=== PATIENT | female | born 1965 | race Caucasian/White ===

== ENCOUNTER 2020-04-12 08:34 | Outpatient (CLI) | payer OTHER, SELFPAY ==
--- NOTE | ~2020-04-12 | CT_ITS ---
EXAMINATION: CT abdomen w con EXAM DATE: 04/12/2020 09:51 INDICATION: Right-sided abdominal pain. Blood in stool. TECHNIQUE: Spiral CT of the abdomen was performed following intravenous injection of 100 mL Omnipaque 350. Axial, coronal and sagittal images were reviewed. The dose-length product (DLP) for this exam ination was 108.75 mGy-cm. The exposure was tailored according to patient size (auto mA exposure con trol), and iterative reconstruction (ASIR) was used as additional dose reduction technique. Compariso n is made to prior examination from 03/11/2019. FINDINGS: Scattered small liver cysts less than 1 cm in size. Spleen, adrenal glands, pancreas are un remarkable. Gallbladder is unremarkable. No biliary obstruction. Portal and splenic veins are arce nt. Kidneys enhance symmetrically. There is no hydronephrosis. There is no retroperitoneal lymph adenopathy. Small supraumbilical fat-containing hernia. The stomach and small bowel are unremarkable. There is moderate amount of colonic stool. No free i ntraperitoneal gas. The heart is normal in size. There are no pericardial or pleural effusions. T he lung bases are unremarkable. There are no osteoblastic or osteolytic lesions identified. Mild to moderate thoracolumbar levoscoliosis. IMPRESSION: 1. Moderate amount of colonic stool. 2. Small supraumbilical fat-containing hernia. 3. No acute abdominal findings. Reviewed, dictated and finalized at location B.
== END 2020-04-12 08:35 | disposition home or self-care (01) ==
PROVIDERS: PCP Family Medicine; Visit Provider Nurse Practitioner
DX: R10.9 Unspecified abdominal pain (principal); K42.9 Umbilical hernia without obstruction or gangrene; E55.9 Vitamin D deficiency, unspecified
CPT/HCPCS: 36415; 74160; 82306; Q9967

== ENCOUNTER 2020-04-24 08:04 | Emergency (ER) | payer OTHER, SELFPAY ==
[2020-04-24 08:14] VITALS: BP 115/70; PULSE 70; RESP 14; TEMP 36.9; O2SAT 100
--- NOTE | 2020-04-24 08:23 | ED.SKABFB ---
HPI - Skin/Abscess/Foreign Bdy General Chief complaint: Skin/Abscess/Foreign Body Stated complaint: Shingles Time Seen by Provider: 04/24/20 08:23 Source: patient Mode of arrival: ambulatory Limitations: no limitations History of Present Illness HPI narrative: Popeye Steiner is a 54 yo female with no PMH who comes to express care with what appears to be a shingles rash on her right lower back. Started with pain 2 days ago and now rash appeared. Pain described as going to the bone Related Data Home Medications Medication Instructions Recorded Confirmed sertraline mg 04/24/20 Allergies Allergy/AdvReac Type Severity Reaction Status Date / Time No Known Allergies Allergy Unverified 02/02/13 13:05 Review of Systems Review of Systems: Narrative: CONSTITUTIONAL: Denies fever, chills, sweats. EYES: Denies visual changes, redness, discharge. ENT: Denies rhinorrhea, congestion, sore throat, otalgia. CARDIOVASCULAR: Denies chest pain, palpitations, edema. RESPIRATORY: Denies dyspnea, wheezing, cough GASTROINTESTINAL: Denies abdominal pain, nausea, vomiting, diarrhea. GENITOURINARY: Denies dysuria, hematuria, abnormal discharge SKIN: Denies rash or itching. rash on lower R back NEUROLOGIC: Denies numbness, or focal weakness. PSYCHIATRIC: Denies anxiety or depression. PMFSH Family History Family History Other Hypertension Social History Social History (Updated 04/24/20 @ 08:43 by Evie Sharma CNP) Smoking status: Current every day smoker Alcohol intake: current Comments At time of signature, I agree with nursing past medical, surgical, social and family history. There is no relevant family history pertinent to the presenting complaint. Exam Narrative: Exam Narrative: GENERAL: This is a well-nourished, well-developed patient, in mild distress. HEAD: normocephalic, atraumatic. EYES: Sclera clear/white. Vision is grossly intact. EARS: External ears normal. Hearing grossly intact. NOSE: External nose normal without nasal discharge, nares without redness, no rhinorrhea. THROAT: Mucous membranes moist, NECK: Neck supple, CARDIOVASCULAR: Regular rate and rhythm without murmurs, gallops, or rubs. RESPIRATORY: Clear to auscultation. Breath sounds equal bilaterally. No wheezes, rales, or rhonchi. GASTROINTESTINAL: Abdomen soft, SKIN: warm, intact with red, raised vesicular rash 3x3 lower R back NEURO: awake, alert, and oriented to person, place and time. There were no obvious focal neurologic abnormalities. Steady gait EXTREMITIES: Normal range of motion. BACK: Nontender without deformity Course Course Emergency Course: Started on valcyclovir discussed infection control, good handwashing Patient is to talk to PCP about getting Shingrix shingles vaccine once rash clears Vital Signs Vital signs: Vital Signs Temperature 98.4 F 04/24/20 08:14 Pulse Rate 70 04/24/20 08:14 Respiratory Rate 14 04/24/20 08:14 Blood Pressure 115/70 04/24/20 08:14 Pulse Oximetry 100 04/24/20 08:14 Temperature 98.4 F 04/24/20 08:14 Pulse Rate 70 04/24/20 08:14 Respiratory Rate 14 04/24/20 08:14 Blood Pressure 115/70 04/24/20 08:14 Pulse Oximetry 100 04/24/20 08:14 MDM - Skin/Abscess/Foreign Bdy Differential Diagnosis Differential diagnosis: Likely abscess of skin or subcutaneous tissue, viral exanthem, urticaria, eczema and other Discharge Plan Discharge Clinical Impression: Shingles rash Qualifiers: Herpes zoster complications: without complications Qualified Code(s): B02.9 - Zoster without complications Patient Disposition: Home, Self-Care Condition: Stable Instructions: Shingles (ED) Prescriptions: New valacyclovir 500 mg tablet 1,000 mg PO TID 7 Days Qty: 42 RF: 0 hydrocodone-acetaminophen [Mathis] 7.5-325 mg tablet 1 tablet PO Q8H PRN (Reason: pain) Qty: 10 RF: 0 No Action sertral
== END 2020-04-24 09:20 | disposition home or self-care (01) ==
PROVIDERS: Emergency Provider Nurse Practitioner; PCP Family Medicine
DX: B02.9 Zoster without complications (principal)
CPT/HCPCS: 99213; G0463

== ENCOUNTER 2021-03-07 11:11 | Outpatient (CLI) | payer OTHER, SELFPAY ==
[2021-03-07 12:05] LABS: Alanine Aminotransferase 13 U/L (4-35); Albumin Level 4.4 g/dL (3.5-5.1); Alkaline Phosphatase 69 U/L (38-126); Anion Gap 7 mmol/L (8-16); Aspartate Amino Transferase 21 U/L (14-36); Bilirubin,Total 0.4 mg/dL (0.2-1.3); Blood Urea Nitrogen 6 mg/dL (7-17); Calcium 9.8 mg/dL (8.4-10.2); Carbon Dioxide 30 mmol/L (22-30); Chloride 101 mmol/L (98-107); Cholesterol 211 mg/dL (0-200); Estimated Glomerular Filt Rate > 60; Glucose 96 mg/dL (65-105); HDL Direct 59 mg/dL; Potassium 3.5 mmol/L (3.4-5.0); Sodium 138 mmol/L (137-145); Triglycerides 94 mg/dL (<150)
[2021-03-07 12:16] LABS: LDL Cholesterol Direct 117 mg/dL
[2021-03-07 12:24] LABS: Basophils Percent Auto 0.8 % (0.2-1.2); Eosinophils Absolute Auto 0.1 K/mm3 (0-0.3); Eosinophils Percent Auto 2.1 % (0-4.4); Hematocrit 37.7 % (37.0-47.0); Hemoglobin 12.4 g/dL (12.0-15.0); Immature Granulocyte Absolute 0.01 K/mm3 (0.00-0.031); Immature Granulocyte Percent A 0.2 % (0-0.5); Lymphocytes Absolute Auto 1.39 K/mm3 (0.9-3.2); Lymphocytes Percent Auto 28.7 % (18.3-44.2); Mean Corpuscular HGB Conc 32.9 g/dl (32-36); Mean Corpuscular Volume 88.1 fl (80-100); Mean Platelet Volume 9.2 fl (7.4-10.4); Monocytes Absolute Auto 0.3 K/mm3 (0.1-0.6); Neutrophils Percent Auto 61.2 % (45.5-73.1); Platelet Count Result 346 k/mm3 (150-375); Red Blood Count 4.28 M/mm3 (4.2-5.4); Red Cell Distribution Width 12.6 % (11.5-14.5); White Blood Count 4.8 K/mm3 (4.5-10.0)
== END 2021-03-07 11:12 | disposition home or self-care (01) ==
LOC: ANHLAB 11:15
PROVIDERS: PCP Student in an Organized Health Care Education/Training Program; Visit Provider Student in an Organized Health Care Education/Training Program
DX: Z13.228 Encounter for screening for other metabolic disorders (principal); Z13.0 Encounter for screening for diseases of the blood and blood-forming organs and certain disorders involving the immune mechanism; Z00.00 Encounter for general adult medical examination without abnormal findings
CPT/HCPCS: 36415; 80053; 80061; 84443; 85025

== ENCOUNTER 2023-02-04 09:55 | Emergency (ER) | payer OTHER, SELFPAY ==
[2023-02-04 10:05] VITALS: BP 119/68; PULSE 75; RESP 16; TEMP 36.1; O2SAT 100
--- NOTE | 2023-02-04 10:22 | ED.URI ---
HPI - URI/Sore Throat General Chief Complaint: Upper Respiratory Infection Stated Complaint: sob,cough,bodyache Source: patient Mode of arrival: ambulatory Limitations: no limitations History of Present Illness HPI Narrative: 57-year-old female presents to [facility] with complaints of cough, shortness of breath, body aches, wheezing, runny nose and congestion for the past 5 days. Patient has been taking [id number] Mucinex D and Tylenol with minimal relief. Patient's grandson recently had similar symptoms. Patient reports history of pneumonia and bronchitis but declines a chest x-ray at this time. Patient denies fever, body aches, chills, sore throat or ear pain. MD elicited complaint: cough, rhinorrhea and nasal congestion Pertinent past history: pneumonia Onset (ago): day(s) (5) Severity: mild Able to tolerate fluids by mouth: Yes Exacerbating factors: nothing Context: sick contacts (Grandson) Treatments prior to arrival: cold medicine Related Data Home Medications Medication Instructions Recorded Confirmed sertraline 50 mg tablet 50 mg DAILY 02/04/23 02/04/23 Allergies Allergy/AdvReac Type Severity Reaction Status Date / Time No Known Allergies Allergy Unverified 02/02/13 13:05 Review of Systems Constitutional: Constitutional: Reports chills, Reports fatigue, Denies fever(s) and Denies weakness ENT: Denies vertigo, Denies dizziness, Denies epistaxis, Reports nasal congestion and Denies sore throat Cardiovascular: Cardiovascular: Denies chest pain Respiratory: Respiratory: Reports cough, Denies dyspnea and Denies wheezing Gastrointestinal: Gastrointestinal: Denies diarrhea, Denies nausea and Denies vomiting Integumentary/Breasts: Skin/Breast: Denies rash Neurologic: Denies dizziness, Denies syncope and Denies headache(s) PMFSH Family History Family History Other Hypertension Social History Social History Smoking status: Current every day smoker Alcohol intake: current Comments At time of signature, I agree with nursing past medical, surgical, social and family history. There is no relevant family history pertinent to the presenting complaint. Exam Const: General: healthy appearing and no acute distress Nutritional Appearance: well nourished Orientation/consciousness: patient oriented x3 Limitations: no limitations HENMT: Head: normal to inspection Ears: external ears normal, TM's normal bilaterally and EAC's normal Face/Nose/Sinus: Normal external nose present Face and sinus: normal facial exam and sinuses nontender Mouth: Yes Normal oral and palatal mucosa present Teeth and gingiva: dentition normal Throat: posterior oropharynx normal and uvula midline Other: Mild nasal congestion noted Eyes: Conjunctivae: conjunctivae normal Neck: Neck: normal visual inspection Resp: Effort & Inspection: normal respiratory effort Auscultation: clear to auscultation bilaterally, no crackles, no rales, no rhonchi, no wheezes, breath sounds present and lung sounds not diminished Cardio: Rate: regular rate Rhythm: regular rhythm Heart sounds: no murmurs Skin: General skin exam: normal color Rashes: no rashes Wounds: no wounds Neuro: General: patient oriented x3 Speech: normal speech Psych: Affect: normal affect Attitude: cooperative Course Course Level of Care: Express Care Visit Vital Signs Vital signs: Vital Signs Temperature 36.1 C L 02/04/23 10:05 Pulse Rate 75 02/04/23 10:05 Respiratory Rate 16 02/04/23 10:05 Blood Pressure 119/68 02/04/23 10:05 Pulse Oximetry 100 02/04/23 10:05 Oxygen Delivery Room Air 02/04/23 10:05 Temperature 36.1 C L 02/04/23 10:05 Pulse Rate 75 02/04/23 10:05 Respiratory Rate 16 02/04/23 10:05 Blood Pressure 119/68 02/04/23 10:05 Pulse Oximetry 100 02/04/23 10:05 Oxygen Delivery Room Air
== END 2023-02-04 10:31 | disposition home or self-care (01) ==
PROVIDERS: Emergency Provider Nurse Practitioner Family; PCP Student in an Organized Health Care Education/Training Program
DX: J06.9 Acute upper respiratory infection, unspecified (principal); F17.200 Nicotine dependence, unspecified, uncomplicated
CPT/HCPCS: 99213; G0463

== ENCOUNTER 2024-01-28 11:10 | Emergency (ER) | payer OTHER, SELFPAY ==
--- NOTE | 2024-01-28 11:21 | ED.FEMALEGU ---
HPI - Female Genitourinary General Chief complaint: Urogenital-Female Stated complaint: UTI symptoms Time Seen by Provider: 01/28/24 11:29 Source: patient, RN notes reviewed and old records reviewed Mode of arrival: ambulatory Limitations: no limitations History of Present Illness HPI Narrative: 58-year-old presents to the [facility] with concerns for a UTI. Patient reports burning, urgency, frequency and suprapubic pressure since yesterday. No treatment prior to. Denies any nausea vomiting diarrhea. Denies any significant abdominal pain. No CVA tenderness. No back pain Onset (ago): day(s) (1) Related Data Home Medications Medication Instructions Recorded Confirmed zolpidem 10 mg tablet 10 mg PO PRN PRN Insomnia 01/28/24 01/28/24 Allergies Allergy/AdvReac Type Severity Reaction Status Date / Time nitrofurantoin AdvReac Intermediate Nausea and Verified 01/28/24 11:29 [From Macrobid] Vomiting Review of Systems Review of Systems: All systems reviewed & are unremarkable except as noted in HPI and below Constitutional: Constitutional: Reports no additional constitutional complaints Eyes: Eyes: Reports no additional eye complaints ENT: Reports system reviewed and no additional complaints, except as documented Cardiovascular: Cardiovascular: Reports no additional cardiovascular complaints, Denies chest pain and Denies dyspnea Respiratory: Respiratory: Reports no additional respiratory complaints, Denies chest congestion, Denies cough and Denies dyspnea Gastrointestinal: Gastrointestinal: Reports no additional gastrointestinal complaints, Denies abdominal pain, Denies nausea and Denies vomiting Genitourinary: Genitourinary: Reports as per HPI and Reports dysuria Musculoskeletal: Musculoskeletal: Reports no additional musculoskeletal complaints Integumentary/Breasts: Skin/Breast: Reports system reviewed and no additional complaints, except as docu Neurologic: Reports system reviewed and no additional complaints, except as documented Psychiatric: Psychiatric: Reports no additional psychiatric complaints Allergic/Immunologic: Allergic/Immunologic: Reports no additional allergic/immunologic complaints [facility] Past Medical History Medical History (Updated 01/28/24 @ 12:17 by Jasmin Navarro APRN) Rectal mass Surgical removal Surgical History Surgical History (Updated 01/28/24 @ 12:15 by Jasmin Navarro APRN) History of bunionectomy Family History Family History Other Hypertension Social History Social History Smoking status: Current every day smoker Alcohol intake: current Comments At the time of my signature, I reviewed and agree with the nursing past medical, surgical, social, and family history. There is no relevant family history pertinent to the patient complaint. Exam Const: General: cooperative, healthy appearing, comfortable, no acute distress, well developed, alert and well nourished Nutritional Appearance: well nourished Orientation/consciousness: patient oriented x3 Limitations: no limitations HENMT: Head: normal to inspection Ears: hearing grossly normal bilaterally and external ears normal Face/Nose/Sinus: Normal external nose present, Normal nares present, Normal nasal mucous membranes and turbinates present, normal facial exam and face symmetric Face and sinus: normal facial exam and face symmetric Eyes: General: appearance normal, both eyes and all related structures Alignment and Position: alignment normal Periorbital: periorbital findings normal Pupils: Equal, round and reactive pupils present EOM: EOMs intact bilaterally Neck: Neck: normal visual inspection, full ROM, no lymphadenopathy and no meningeal signs Chest: Chest palpation & inspection: normal inspection of the chest Resp: Effort & Inspection: normal respiratory effort and able to speak in c
[2024-01-28 11:24] VITALS: BP 118/75; PULSE 77; RESP 16; TEMP 36.6; O2SAT 100
== END 2024-01-28 11:38 | disposition home or self-care (01) ==
PROVIDERS: Emergency Provider Nurse Practitioner; PCP Student in an Organized Health Care Education/Training Program
DX: N39.0 Urinary tract infection, site not specified (principal); F17.200 Nicotine dependence, unspecified, uncomplicated
CPT/HCPCS: 81003; 87086; 99213; G0463

== ENCOUNTER 2024-06-18 08:46 | Emergency (ER) | payer OTHER, SELFPAY ==
--- NOTE | ~2024-06-18 | XR_ITS ---
Clinical Indication: Shortness of breath PA and lateral views of the chest: Comparison: 02/04/2013 Findings: The lungs are clear, without evidence of focal consolidation or pleural effusion. COPD kyle kalyani present. Cardiomediastinal silhouette is within normal limits. Bones and soft tissues are unremar kable. Impression: Clear lungs. COPD. Reviewed, dictated and finalized at location . Impression: Clear lungs. COPD.
[2024-06-18 09:17] VITALS: BP 122/71; PULSE 69; RESP 18; TEMP 36.8; O2SAT 98
--- NOTE | 2024-06-18 09:19 | ED.URI ---
HPI - URI/Sore Throat General Chief Complaint: Upper Respiratory Infection Stated Complaint: SOB/Cough/ Chest congestion Time Seen by Provider: 06/18/24 09:09 Source: patient Mode of arrival: ambulatory Limitations: no limitations History of Present Illness HPI Narrative: Popeye is a 58-year-old female patient presenting to the clinic today with complaints of shortness breath, cough, and chest congestion for over the past week. She reports she is coughing up green thick phlegm. Stated she had a fever with her initial illness however she has not had a fever for the last several days. Denies any chest pain. History of COPD. Former smoker MD elicited complaint: fever, cough, nasal congestion and other (Shortness of breath, chest congestion) Related Data Home Medications Medication Instructions Recorded Confirmed zolpidem 10 mg tablet 10 mg PO PRN PRN Insomnia 01/28/24 06/18/24 sertraline 50 mg tablet 50 mg DIRECTED 06/18/24 06/18/24 Allergies Allergy/AdvReac Type Severity Reaction Status Date / Time nitrofurantoin AdvReac Intermediate Nausea and Verified 01/28/24 11:29 [From Macrobid] Vomiting Review of Systems Review of Systems: Pertinent positives per HPI. Patient denies any fever, chills, rash, headache, visual changes, dizziness, chest pain, palpitations, nausea, vomiting, diarrhea, constipation, abdominal pain, or any urinary issues. PMFSH Past Medical History Medical History Rectal mass Surgical removal Surgical History Surgical History History of bunionectomy Family History Family History Other Hypertension Social History Social History Smoking status: Current every day smoker Alcohol intake: current Comments At the time of my signature, I reviewed and agree with the nursing past medical, surgical, social, and family history. There is no relevant family history pertinent to the patient complaint. Exam Narrative: General: Well-developed, well nourished, in no apparent distress Head: Normocephalic, atraumatic Eyes: Pupils equally round and reactive to light bilaterally, EOM intact, sclera and conjunctive clear, no discharge, lids normal Ears: TMs intact and clear, ear canals clear, no drainage, grossly hearing normal. Nose: Nares patent, clear nasal discharge, moderate inflammation, no sinus tenderness. Mouth: Oral pharynx without lesions or masses, good dentition, MMM. Neck: Supple, trachea midline, no enlargement of anterior or posterior cervical nodes, no thyroid masses or goiter palpable. Cardio: Regular rate and rhythm, s1 and s2 normal, no murmur appreciated. Resp: Diminished breath sounds in the bases, no rhonchi, rales, wheezing or rubs Course Course Emergency Course: Portions of this record may have been created with voice recognition software. Level of Care: Express Care Visit Vital Signs Vital signs: Vital Signs Temperature 36.8 C 06/18/24 09:17 Pulse Rate 69 06/18/24 09:17 Respiratory Rate 18 06/18/24 09:17 Blood Pressure 122/71 06/18/24 09:17 Pulse Oximetry 98 06/18/24 09:17 Oxygen Delivery Room Air 06/18/24 09:17 Temperature 36.8 C 06/18/24 09:17 Pulse Rate 69 06/18/24 09:17 Respiratory Rate 18 06/18/24 09:17 Blood Pressure 122/71 06/18/24 09:17 Pulse Oximetry 98 06/18/24 09:17 Oxygen Delivery Room Air 06/18/24 09:17 Vital signs reviewed MDM - URI/Sore Throat MDM Narrative Medical decision making narrative: At the time of visit patient is resting comfortably on the exam table. Patient appears to be nontoxic. Diagnostics: Chest x-ray was performed and was negative for any sign of pneumonia. Show signs of COPD Plan: I suspect patient has COPD exacerbation
== END 2024-06-18 10:19 | disposition home or self-care (01) ==
PROVIDERS: Emergency Provider Nurse Practitioner Family; PCP Student in an Organized Health Care Education/Training Program
DX: J44.1 Chronic obstructive pulmonary disease with (acute) exacerbation (principal); J01.90 Acute sinusitis, unspecified
CPT/HCPCS: 71046; 99213; G0463

== ENCOUNTER 2025-03-20 10:16 | Emergency (ER) | payer OTHER, SELFPAY ==
--- OUTSIDE RECORDS SUMMARY | 2025-03-20 10:19 | XMS_ITS | Continuity of Care Document ---
Author Name [facility] Organization [facility] Care Team Providers Care Data Abstractor Name Role Phone [facility] Unavailable Unavailable Problems Combined list of problems from Department of 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 It does not include entries that were removed or entered in error. 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 DoD depression Active Condition DoD routine history and physical adult (18 - 64 yrs) Active Condition DoD Laboratory Studies Inactive Condition Do D visit for: issue repeat prescription Inactive Condition DoD X-Ray Active Condition DoD bulging intervertebral disc cervical Active Condition DoD joint pain, localized in the knee Active Condition DoD visit for: services physical [facility] Active Condition DoD bronchitis Inactive Condition DoD subconjunctival hemorrhage left eye Active Condition DoD herniated disc (C5 - C6) Active Condition pt defers PT/chiro--will try trial of PO steroid burst; pt is to avoid NSAIDS w/ prednisone and may take tylenol for discomfortpt agrees w/ POC DoD diarrhea Inactive Condition 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 Supportive care. Quarters x 24 hrs. Fluids, ADAT, handwashing. f/u prn. DoD visit for: administrative purpose Active Condition DoD visit for: screening exam for malignant neoplasm cervix Active Condition Advised to g et breast exam and mammo in April. DoD presbyopia Inactive Condition DoD astigmatism regular Inactive Condition D oD refractive error - myopia Inactive Condition DoD routine ophthalmological exam Inactive Condition DoD Need For Vaccination Against Single Disease Inactive Condition DoD visit for: services physical Active Condition DoD urinary tract infection Inactive Condition DoD abdominal pain Active Condition DoD Preventive Medicine New Patient Evaluation Adult 40-64 Years Inactive Condition DoD visit for: postsurgical exam Inactive Condition s/p left inguinal hernia repair with mesh DoD visit for: issue repeat prescription for medication Inactive Condition DoD inguinal hernia on the left Active Condition DoD hernia Active Condition CT to eval hernia, follow up if pain worsens. DoD joint pain in the toes Active Condition no visible fx seen on x-ray. Toe aaron taped, darvocet as needed. Pt given post-op shoe to wear as needed, follow up if sx's worsen or don't resolve. DoD cervicalgia Active Condition DoD non-neoplastic nevus Active Condition the patient is to apply sunblock when going in the sun. Discussed the ABCD's of skin care with her and if she notes any changes in the moles she is to return to the clinic em. DoD gastritis acute Active Condition ..OF F DUTIES 24 HRS, >H2O,REST F/U ADVISED! DoD Medications Combined list of outpatient medications from Department of 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Medications provided include 1) outpatient medications from the last 15 months, and 2) patient-reported medications. Medication Details Route Status Patient Instructions Prescription Expires Prescription Number Last Dispense Date Ordering Provider Order Date Order Qty Source AMOX TR-POTASSIU M CLAVULANATE (AMOXICILLI N/POTASSIUM CLAV), 875-125 MG, TABLET, ORAL, SANDOZ, 20 ea. BOTTLE Active [id number] 2023 10 Pharmac y Data Transac tion Service Facilit y CEFDINIR (CEFDINIR), 300MG, CAPSULE, ORAL, AUROBINDO PHARM, 60 ea. BOTTLE Active [id number] 2023 20 Pharmac y Data Transac tion Service Facilit y GAVILYTE-G (PEG 3350/NA SULF,BICARB ,CL/KCL), 236-22.74G, SOLN RECON, ORAL, GAVIS PHARMACEU, 4000 ml BOTTLE Cancele d [id number] : 2023 0 Pharmac y Data Transac tion Service Facilit y SERTRALINE HCL (SERTRALINE HCL), 50MG, TABLET, ORAL, AUROBINDO PHARM, 500 ea. BOTTLE Cancele d [id number] : 2023 0 Pharmac y Data Transac tion Service Facilit y ZOLPIDEM TARTRATE (ZOLPIDEM TARTRATE), 10MG, TABLET, ORAL, AUROBINDO PHARM, 100 ea. BOTTLE Cancele d [id number] : 2023 0 Pharmac y Data Transac tion Service Facilit y Allergies, Adverse Reactions, Alerts Combined list of allergies from Department of 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 It does not include entries that were removed or entered in error. Substance Category Reaction Severity Reaction type Status Date Reported Comments Source OTHER Drug allergy (disorder) Unknown active 6 [employer] Zaid CEDILLO ([facility]) OTHER Propensity to adverse reactions to drug Unknown Active 6 [id number] Unknown Organization Immunizations Combined list of available immunizations from the Department of 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 Immunization Series Date Given Administered By Site Reaction Lot Number CVX Code Drug Coordinator Of Placement Status Comments Source COVID-19, mRNA, LNP-S, PF, 30 mcg/0.3 mL dose 2020 [employer] [place] (PFR) Not Given COVID-19, mRNA, LNP-S, PF, 30 mcg/0.3 mL dose [facility] COVID-19, mRNA, LNP-S, PF, 30 mcg/0.3 mL dose 2020 [facility] [place] (PFR) Not Given COVID-19, mRNA, LNP-S, PF, 30 mcg/0.3 mL dose [facility] influenza virus vaccine, live 2007 [id number] [employer] comple t ed influenza virus vaccine, live 07/20/08 Given Ambulat ory Pharmac y influenza virus vaccine, live, attenuated, for intranasal use 1 2007 [id number] 111 [employer] (MED) complet ed influenza virus vaccine, live, attenuate d, for intranasa l use [facility] tetanus, diphtheria, acellular pertu is 2007 [id number] 115 sanofi pasteur complet ed tetanus, diphtheri a, acellular pertussis 11/05/07 Given Ambulat ory Pharmac y tetanus toxoid, reduced diphtheria toxoid, and acellular pertu is vaccine, adsorbed 1 2007 [id number] Sanofi Pasteur (PMC) complet ed tetanus toxoid, reduced diphtheri a toxoid, and acellular pertussis vaccine, adsorbed DoD influenza virus vaccine, live 2006 [id number] 111 [employer] comple t ed influenza virus vaccine, live 08/01/07 Given Ambulat ory Pharmac y influenza virus vaccine, live, attenuated, for intranasal use 0 2006 [id number] 111 [employer]. (MED) complet ed influenza virus vaccine, live, attenuate d, for intranasa l use DoD anthrax vaccine 2006 [id number] [employer] complet ed anthrax vaccine 07/12/07 Given Ambulat ory Pharmac y anthrax vaccine 3 2006 [id number] [employer] [place] (MIP) complet ed anthrax vaccine DoD anthrax vaccine 2006 [id number] [employer] complet ed anthrax vaccine 06/09/07 Given Ambulat ory Pharmac y anthrax vaccine 2 2006 [id number] [employer] [place] (MIP) complet ed anthrax vaccine DoD vaccinia (smallpox) vaccine 2006 [id number] [employer] complet ed vaccinia (smallpox ) vaccine 05/15/07 Given Ambulat ory Pharmac y typhoid Vi capsular polysaccharid e vac 2006 [id number] 101 sanofi pasteur complet ed typhoid Vi capsular polysacch aride vac 05/15/07 Given Ambulat ory Pharmac y vaccinia (smallpox) vaccine 1 2006 [id number] [facility] complet ed vaccinia (smallpox ) vaccine DoD typhoid Vi capsular polysaccharid e vaccine 1 2006 [id number] 101 Sanofi Pasteur (PMC) complet ed typhoid Vi capsular polysacch aride vaccine DoD anthrax vaccine 2006 [id number] [employer] complet ed anthrax vaccine 05/12/07 Given Ambulat ory Pharmac y anthrax vaccine 1 2006 [id number] [employer] [place] (MIP) complet ed anthrax vaccine DoD influenza virus vaccine,split 2005 [id number] 15 sanofi pasteur complet ed influenza virus vaccine,s plit 09/19/06 Given Ambulat ory Pharmac y influenza virus vaccine, split virus (incl. purified surface antigen)-reti red CODE 1 2005 [id number] 15 Sanofi Pasteur (PMC) complet ed influenza virus vaccine, split virus (incl. purified surface antigen)- retired CODE DoD measles, mumps and rubella virus vaccine 0 2005 03 () Not Given measles, mumps and rubella virus vaccine DoD tetanus-dipht h toxoids (Td) adult/adol 2004 [id number] sanofi pasteur complet ed tetanus-d iphth toxoids (Td) adult/ado l 10/17/05 Given Ambulat ory Pharmac y tetanus and diphtheria toxoids, adsorbed, preservative free, for adult use (2 Lf of tetanus toxoid and 2 Lf of diphtheria toxoid) 1 2004 [id number] Sanofi Pasteur (PMC) complet ed tetanus and diphtheri a toxoids, adsorbed, preservat rose free, for adult use (2 Lf of tetanus toxoid and 2 Lf of diphtheri a toxoid) DoD influenza virus vaccine, live 2004 [id number] 111 [employer] comple t ed influenza virus vaccine, live 07/24/05 Given Ambulat ory Pharmac y influenza virus vaccine, live, attenuated, for intranasal use 1 2004 [id number] 111 Beta[employer], Inc. (MED) complet ed influenza virus vaccine, live, attenuate d, for intranasa l use DoD hepatitis B vaccine, adult dosage 0 2003 43 () Not Given hepatitis B vaccine, adult dosage DoD varicella virus vaccine 0 2002 21 () Not Given varicella virus vaccine DoD influenza virus vaccine, whole virus 2002 [id number] [employer] complet ed influenza virus vaccine, whole virus 07/23/03 Given Ambulat ory Pharmac y influenza virus vaccine, whole virus 0 2002 [id number] [employer] (PWJ) complet ed influenza virus vaccine, whole virus DoD influenza virus vaccine, whole virus 2001 [id number] 16 sanofi pasteur complet ed influenza virus vaccine, whole virus 08/19/02 Given Ambulat ory Pharmac y influenza virus vaccine, whole virus 0 2001 [id number] 16 Sanofi Pasteur (PMC) complet ed influenza virus vaccine, whole virus DoD influenza virus vaccine, whole virus 2000 [id number] 16 sanofi pasteur complet ed influenza virus vaccine, whole virus 08/19/01 Given Ambulat ory Pharmac y influenza virus vaccine, whole virus 0 2000 [id number] 16 Sanofi Pasteur ([facility]) complet ed influenza virus vaccine, whole virus DoD influenza virus vaccine, whole virus 2000 [id number] 16 sanofi pasteur complet ed influenza virus vaccine, whole virus 01/20/01 Given Ambulat ory Pharmac y influenza virus vaccine, whole virus 0 2000 [id number] 16 Sanofi [facility] ([facility]) complet ed influenza virus vaccine, whole virus DoD influenza virus vaccine, whole virus 1999 [id number] 16 [facility] complet ed influenza virus vaccine, whole virus 09/18/00 Given Ambulat ory Pharmac y influenza virus vaccine, whole virus 0 1999 [id number] 16 [facility] ([facility]) complet ed influenza virus vaccine, whole virus DoD influenza virus vaccine, whole virus 1998 16 complet ed influenza virus vaccine, whole virus 07/27/99 Given Ambulat ory Pharmac y influenza virus vaccine, whole virus 0 1998 16 () complet ed influenza virus vaccine, whole virus DoD typhoid vaccine, live, oral 1997 25 complet ed typhoid vaccine, live, oral 08/30/98 Given Ambulat ory Pharmac y typhoid vaccine, live, oral 0 1997 25 () complet ed typhoid vaccine, live, oral DoD influenza virus vaccine, whole virus [id number] 16 [facility] complet ed influenza virus vaccine, whole virus 08/16/98 Given Ambulat ory Pharmac y influenza virus vaccine, whole virus 0 [id number] [id number] 16 [facility] ([facility]) complet ed influenza virus vaccine, whole virus DoD tuberculin purified protein derivative 1997 [id number] [employer] complet ed Patient Tolerance : Negative Ambulat ory Pharmac y tuberculin skin test; purified protein derivative solution, intradermal 3 1997 Unknown, Provider [id number] [employer] (CON) complet ed tuberculi n skin test; purified protein derivativ e solution, intraderm al DoD influenza virus vaccine, whole virus [id number] [employer] complet ed influenza virus vaccine, whole virus 08/23/97 Given Ambulat ory Pharmac y influenza virus vaccine, whole virus 0 [id number] 16 Jensen (Inactive) ([place]) complet ed influenza virus vaccine, whole virus DoD tuberculin purified protein derivative 1996 [id number] 96 [facility] complet ed Patient Tolerance : Negative Ambulat ory Pharmac y tuberculin skin test; purified protein derivative solution, intradermal 2 1996 Unknown, Provider [id number] 96 [facility] (CON) complet ed tuberculi n skin test; purified protein derivativ e solution, intraderm al DoD meningococcal polysaccharid e (MPSV4) 1996 32 complet ed meningoco ccal polysacch aride (MPSV4) 12/23/96 Given Ambulat ory Pharmac y meningococcal polysaccharid e vaccine (MPSV4) 0 1996 32 () complet ed meningoco ccal polysacch aride vaccine (MPSV4) DoD hepatitis B adult vaccine 1996 43 complet ed hepatitis B adult vaccine 12/08/96 Given Ambulat ory Pharmac y hepatitis B vaccine, adult dosage 3 1996 43 () complet ed hepatitis B vaccine, adult dosage DoD hepatitis B adult vaccine 1995 43 complet ed hepatitis B adult vaccine 05/19/96 Given Ambulat ory Pharmac y tuberculin purified protein derivative 1995 96 complet ed Patient Tolerance : Negative Ambulat ory Pharmac y hepatitis A adult vaccine 1995 52 complet ed hepatitis A adult vaccine 05/19/96 Given Ambulat ory Pharmac y hepatitis B vaccine, adult dosage 2 1995 43 () complet ed hepatitis B vaccine, adult dosage DoD hepatitis A vaccine, adult dosage 2 1995 52 () complet ed hepatitis A vaccine, adult dosage DoD tuberculin skin test; purified protein derivative solution, intradermal 1 1995 Unknown, Provider 96 () complet ed tuberculi n skin test; purified protein derivativ e solution, intraderm al DoD yellow fever vaccine 1995 37 complet ed yellow fever vaccine 11/20/95 Given Ambulat ory Pharmac y yellow fever vaccine 0 1995 37 () complet ed yellow fever vaccine DoD typhoid, parenteral, AKD 1994 53 complet ed typhoid, parentera l, AKD 08/08/95 Given Ambulat ory Pharmac y typhoid vaccine, parenteral, acetone-kille d, dried (U.S. ) 3 1994 53 () complet ed typhoid vaccine, parentera l, acetone-k illed, dried (U.S. ) DoD typhoid, parenteral, AKD 1994 53 complet ed typhoid, parentera l, AKD 07/31/95 Given Ambulat ory Pharmac y tetanus-dipht h toxoids (Td) adult/adol 1994 09 complet ed tetanus-d iphth toxoids (Td) adult/ado l 07/31/95 Given Ambulat ory Pharmac y hepatitis A adult vaccine 1994 52 complet ed hepatitis A adult vaccine 07/31/95 Given Ambulat ory Pharmac y tetanus and diphtheria toxoids, adsorbed, preservative free, for adult use (2 Lf of tetanus toxoid and 2 Lf of diphtheria toxoid) 0 1994 09 () complet ed tetanus and diphtheri a toxoids, adsorbed, preservat rose free, for adult use (2 Lf of tetanus toxoid and 2 Lf of diphtheri a toxoid) DoD hepatitis A vaccine, adult dosage 1 1994 52 () complet ed hepatitis A vaccine, adult dosage DoD typhoid vaccine, parenteral, acetone-kille d, dried (.S. ) 2 1994 53 (MV) complet ed typhoid vaccine, parentera l, acetone-k illed, dried (U.S. ) DoD rubella virus vaccine 1988 06 complet ed rubella virus vaccine 06/27/89 Given Ambulat ory Pharmac y measles and rubella virus vaccine 1988 04 complet ed measles and rubella virus vaccine 06/27/89 Given Ambulat ory Pharmac y measles and rubella virus vaccine 0 1988 04 () complet ed measles and rubella virus vaccine DoD rubella virus vaccine 0 1988 06 () complet ed rubella virus vaccine DoD typhoid, parenteral, AKD 1987 53 complet ed typhoid, parentera l, AKD 11/21/87 Given Ambulat ory Pharmac y typhoid vaccine, parenteral, acetone-kille d, dried ([place].S. ) 1 1987 53 () complet ed typhoid vaccine, parentera l, acetone-k illed, dried ([place].S. ) DoD tetanus-dipht h toxoids (Td) adult/adol 1985 09 complet ed tetanus-d iphth toxoids (Td) adult/ado l 01/19/86 Given Ambulat ory Pharmac y tetanus and diphtheria toxoids, adsorbed, preservative free, for adult use (2 Lf of tetanus toxoid and 2 Lf of diphtheria toxoid) 0 1985 09 () complet ed tetanus and diphtheri a toxoids, adsorbed, preservat rose free, for adult use (2 Lf of tetanus toxoid and 2 Lf of diphtheri a toxoid) DoD poliovirus vaccine, live, oral 1985 02 complet ed polioviru s vaccine, live, oral 12/09/85 Given Ambulat ory Pharmac y trivalent poliovirus vaccine, live, oral 0 1985 02 () complet ed trivalent polioviru s vaccine, live, oral DoD poliovirus vaccine, live, oral 1985 02 complet ed polioviru s vaccine, live, oral 11/21/85 Given Ambulat ory Pharmac y yellow fever vaccine 1985 37 complet ed yellow fever vaccine 11/21/85 Given Ambulat ory Pharmac y trivalent poliovirus vaccine, live, oral 0 1985 02 () complet ed trivalent polioviru s vaccine, live, oral DoD yellow fever vaccine 0 1985 37 () complet ed yellow fever vaccine DoD Encounters Combined list of: 1) Encounters from Department of Veterans Affairs facilities going backup to the last 18 months, not all VA inpatient encounters are included; 2) Encounters from the Department of Defense facilities going backup to 280 months. Location Location Details Encounter Type Encounter Number Reason For Visit Attending Provider ADM Date DC Date Status Disposition Source [facility] OUTPATIENT [id number] Diarrhe ROSIE Reyes 07/20 Sick at Home/Quarter s DALIA Tellez([facility] DALIA Tellez(Academ y Neurology ) OUTPATIENT [id number] BOTOX appt CHERYL CAO 09/26 Released w/o Limitations Kumar VILLALOBOS [place] [place] Heath [place]ILFREDO [place] OUTPATIENT [id number] moles on back KATTY MANNING 10/01 Released w/o Limitations Kumar VILLALOBOS [place] Heath WILFREDO [place](Academ [place] Neurology ) OUTPATIENT [id number] F/u Appt per Col Darciekrissyfrancisco javier FOREMANKRISSYCHERYL PEARSON A 10/11 Released w/o Limitations Kumar VILLALOBOS [place]Ac[place]resa Neurol[place]) [facility] Zaid Jaswinder ([facility])([facility] Practice Non-GME FHI2) OUTPATIENT [id number] POSS BROKEN TOE LINNETTE LANDAVERDE 03/08 Released w/o Limitations [facility] Zaid B [facility])(F amily Practic e Non-GME FHI2) [facility] Zaid [facility])([facility] Practice Non-GME FHI2) OUTPATIENT [id number] left inguina l bulge x 2 days, tender LINNETTE LANDAVERDE 07/15 Released w/o Limitations [facility] Zaid [facility])(F amily Practic e Non-GME FHI2) [address] [place] [address] Zaid [facility])(Gen eral Surgery) OUTPATIENT [id number] hernia KELTON NIX 07/18 Released w/o Limitations [facility] Zaid [facility])(G eneral Surgery ) [address] [place] [address] Zaid [facility])([facility] Practice Non-GME FHI2) TELE CONSULT [id number] med see- DAVID Hair 07/[address] [place] [address] Zaid [facility])(F amily Practic e Non-GME FHI2) [address] [place] [address] Zaid [facility])(Gen eral Surgery) OUTPATIENT [id number] hernia KELTON NIX 08/22 Released w/o Limitations [address] [place] [address] Zaid B ([facility])(G eneral Surgery ) [address] [place] [address] Zaid [facility])([facility]) OUTPATIENT [id number] AYLA Simon 09/04 Released w/o Limitations [facility] Zaid CEDILLO ([facility])([facility]) [address] [place] [address] Zaid NGUYEN [facility])([facility] galileo Practice Non-GME FHI1) OUTPATIENT [id number] abdomin al pain AMERICA DAVIS Nikita 01/08 Released w/o Limitations [address] [place] [address] Zaid CHASEJaswinder ([facility])(F amily Practic e Non-GME FHI1) [address] [place] [address] Zaid CHASEB [facility])([facility]) OUTPATIENT [id number] JEANCARLOS CANDELARIO 05/19 Released w/o Limitations [address] [place] [address] Group Zaid CHASEJaswinder [facility])([facility]) [address] [place] [address] Zaid CHASEB [facility])([facility]) OUTPATIENT [id number] [facility] JEANCARLOS VILLEGAS 05/19 Released w/o Limitations [address] [place] [address] Zaid [facility] ([facility])([facility]) Theater Facility OUTPATIENT [id number] 07/12 Released w/o Limitations [facility] OUTPATIENT [id number] 08/28 Released w/o Limitations Theater [facility] y [address] [place] [address] Zaid CHASEJaswinder [facility])([facility] ) OUTPATIENT [id number] well woman/P ap MDG access JASMEET MAGANA 01/14 Released w/o Limitations [address] [place] [address] Zaid CHASEJaswinder [facility])(S cott Interna l Medicin e Tm) [address] [place] [address] Zaid CHASEJaswinder [facility])([facility] ) TELE CONSULT [id number] LAB RESULTS AFTER JASMEET MAGANA 01/[address] [place] [address] Group Zaid CHASEB [facility])(S cott Interna l Medicin e Tm) [address] [place] [address] Zaid CHASEJaswinder [facility])([facility] galileo Practice Non-GME FHI1) OUTPATIENT [id number] stomach problem s LIBERTY MCCALL 01/27 Sick at Home/Quarter s [address] [place] [address] Zaid CHASEB [facility])(F amily Practic e Non-GME FHI1) [address] [place] [address] Zaid CHASEJaswinder [facility])(Fam galileo Practice Non-GME FHI1) TELE CONSULT [id number] YOBANIRA SILVER GRESHAM L 02/[address] [place] [address] Zaid CEDILLO [facility])(F amily Practic e Non-GME FHI1) [address] [place] [address] Zaid CEDILLO [facility])([facility] Practice Non-GME FHI2) OUTPATIENT [id number] dx w/herni ated c-spine disks 2 yrs ago, now c/o n/t ortega upper ext JAVED MAGALLANES 02/08 Released w/o Limitations [address] [place] [address] Zaid CEDILLO [facility])(F amily Practic e Non-GME FHI2) [address] [place] [address] Zaid STONEB ([facility])([facility] Practice Non-GME FHI1) OUTPATIENT [id number] [facility] - Web Based Assessm ent (9) MATT TANNER 05/25 Released w/o Limitations [address] [place] [address] Zaid CEDILLO ([facility])(F amily Practic e Non-GME FHI1) [address] [place] [address] Zaid CEDILLO [facility])(Opt ometry) OUTPATIENT [id number] conjunc tival hemorrh age left eye DASHA LUBIN 05/26 Released w/o Limitations [address] [place] [address] Zaid STONEB ([facility])(O ptometr y) [address] [place] [address] Zaid CEDILLO [facility])([facility] Practice Non-GME FHI2) OUTPATIENT [id number] abnorma l bleedin g in abd. and flank pain [phone] BRIE MCCALL L 11/22 Released w/o Limitations [address] [place] [address] Zaid CEDILLO [facility])(F amily Practic e Non-GME FHI2) [address] [place] [address] Zaid STONEB [facility])([facility] Practice Non-GME FHI1) OUTPATIENT [id number] Cold Symptom s JEANCARLOS VILLEGAS 12/03 Released w/o Limitations [address] [place] [address] Zaid CEDILLO [facility])(F amily Practic e Non-GME FHI1) [address] [place] [address] Zaid CEDILLO [facility])([facility]) OUTPATIENT [id number] [facility] AMERICA DAVIS 12/31 Released w/o Limitations [address] [place] [address] Zaid STONEB ([facility])(D [facility]) [address] [place] [address] Zaid STONEB [facility])(Fam galileo Med Tm B Non-AD BCC) OUTPATIENT [id number] Retirem ent physica l [phone] BRIE MCCALL 02/10 Released w/o Limitations [address] [place] [address] Zaid STONEB ([facility])(F amily Med Tm B Non-AD BCC) [address] [place] [address] Zaid STONEB [facility])(Fam galileo Med Tm B Non-AD BCC) TELE CONSULT [id number] Rad Results BRIE MCCALL 02/[address] [place] [address] Zaid [facility])(F amily Med Tm B Non-AD BCC) [address] [place] [address] Zaid STONEB [facility])([facility]) DENTAL [id number] op dent #29, #30 SHERRY FOWLER 03/02 Released w/o Limitations [address] [place] [address] Zaid CEDILLO ([facility])(D ental Clinic) [address] [place] [address] Zaid STONEB [facility])(Fam galileo Med Tm B Non-AD BCC) TELE CONSULT [id number] PCM - Dr. Mccall - prx fefill WALTER MATHIS 12/[address] [place] [address] Zaid STONEB [facility])(F amily Med Tm B Non-AD BCC) [address] [place] [address] Zaid STONEB [facility])(Fam galileo Med Tm B Non-AD BCC) TELE CONSULT [id number] Lab Results WALTER MATHIS 01/[address] [place] [address] Zaid STONEB ([facility])(F amily Med Tm B Non-AD BCC) [address] [place] [address] Zaid STONEB [facility])(Fam galileo Med Tm B Non-AD BCC) OUTPATIENT [id number] fu medicat ions and refills [phone] BRIE MCCALL 01/19 Released w/o Limitations [address] [place] [address] Zaid STONEB ([facility])(F amily Med Tm B Non-AD BCC) [address] [place] [address] Zaid STONEB [facility])(Fam galileo Med Tm B Non-AD BCC) TELE CONSULT [id number] pt request refill of Ambien( msg left on DM line) Radha [phone] FELICITA PARKER 08/[address] [place] [address] Zaid CHASEB [facility])(F amily Med Tm B Non-AD BCC) [address] [place] [address] Zaid CHASEB [facility])(Fam galileo Med Tm B Non-AD BCC) OUTPATIENT [id number] blood in stools [phone] BRIE MCCALL 11/13 Released w/o Limitations [address] [place] [address] Zaid STONEB ([facility])(F amily Med Tm B Non-AD BCC) [address] [place] [address] Zaid STONEB ([facility])(Fam galileo Med Tm B Non-AD BCC) TELE CONSULT [id number] Med refill/ Mccall/WALTER Cantu 01/[address] [place] [address] Zaid CHASEB ([facility])(F amily Med Tm B Non-AD BCC) [address] [place] [address] Zaid CHASEB ([facility])(Fam galileo Med Tm B Non-AD BCC) TELE CONSULT [id number] med refill TIM Conner 08/[address] [place] [address] Zaid CHASEB ([facility])(F amily Med Tm B Non-AD BCC) [address] [place] [address] Zaid CHASEB ([facility])(Fam galileo Med Tm B Non-AD BCC) OUTPATIENT [id number] f/u depress ion BRIE MCCALL 08/13 Released w/o Limitations [address] [place] [address] Zaid STONEB ([facility])(F amily Med Tm B Non-AD BCC) [address] [place] [address] Zaid CHASEB ([facility])([facility]) OUTPATIENT [id number] Smoking Cessati on DEE CONNORS 08/27 Released w/o Limitations [address] [place] [address] Zaid STONEB ([facility])(I Pharm D [facility]) [address] [place] [address] Zaid CHASEB [facility])(Fam galileo Med Tm B Non-AD BCC) TELE CONSULT [id number] Notes Entered by: Jagdish WILLIAMSON 29 Jul 2012 0839 ------- ------- ------- ------- -- Med refill/ [facility]/jagdish ad/cls [phone] TIM FRANCISCO 07/[address] [place] [address] Zaid CHASEB ([facility])(F amily Med Tm B Non-AD BCC) [address] [place] [address] Zaid CHASEB ([facility])(Fam galileo Med Tm B Non-AD BCC) OUTPATIENT [id number] follow up zoloft medicat ion [phone] ABIGAIL MORALES 08/12 Released w/o Limitations [address] [place] [address] Group Zaid [facility] ([facility])(F amily Med Tm B Non-AD BCC) [address] [place] [address] Zaid [facility])(Fam galileo Med Tm B Non-AD BCC) TELE CONSULT [id number] Notes Entered by: Nik MORALES 10 Sep 2012 0856 ------- ------- ------- ------- -- lab ABIGAIL MORALES 09/[address] [place] [address] Zaid [facility])(F amily Med Tm B Non-AD BCC) [address] [place] [address] Zaid [facility])(War rior Op Med Cln Tm A Ad) TELE CONSULT [id number] Notes Entered by: KASHMIR STARK 30 Sep 2012 1708 ------- ------- ------- ------- -- Network Results - GASTROE YUDITH GY 09/26/12 ABIGAIL MORALES 09/[address] [place] [address] Group Zaid [facility])(W arrior Op Med Cln Tm A Ad) [address] [place] [address])(Fam galileo Med Tm B Non-AD BCC) TELE CONSULT [id number] Notes Entered by: Nik MORALES 01 Oct 2012 1250 ------- ------- ------- ------- -- labs TIM FRANCISCO 10/[address] [place] [address] Zaid [facility])(F amily Med Tm B Non-AD BCC) [address] [place] [address] Zaid [facility])(Fam galileo Med Tm B Non-AD BCC) OUTPATIENT [id number] Sleep concern s [phone] MARGARITA ZAVALA 12/24 Released w/o Limitations [address] [place] [address] Group Zaid [facility] ([facility])(F amily Med Tm B Non-AD BCC) [address] [place] [address] Zaid [facility] ([facility])(Fam galileo Med Tm B Non-AD BCC) TELE CONSULT [id number] Notes Entered by: NATALIA ORTIZ 02 Feb 2013 0732 ------- ------- ------- ------- -- Back pain, leg pain, chills, sweatin mariangel - Dulce Maria - TIM FRANCISCO 02/[address] [place] [address])(F amily Med Tm B Non-AD BCC) [address] [place] [address])(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) OUTPATIENT [id number] [facility] [phone] KAYLEY MUNIZ 02/02 Released w/o Limitations [address] [place] [address])(G ynecolo gy) [address] [place] [address])(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) TELE CONSULT [id number] Notes Entered by: KAYLEY MUNIZ 12 Feb 2014 0747 ------- ------- ------- ------- -- results JEFF VALENTE 02/[address] [place] [address])(G ynecolo gy) [address] [place] [address])(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) OUTPATIENT [id number] [facility] - [phone] KAYLEY MUNIZ 02/15 Released w/o Limitations [address] [place] [address])(G ynecolo gy) [address] [place] [address])(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) TELE CONSULT [id number] Notes Entered by: KAYLEY MUNIZ 24 Feb 2014 1228 ------- ------- ------- ------- -- Embx results JEFF VALENTE 02/[address] [place] [address])(G ynecolo gy) [address] [place] [address])(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 Procedure Procedure Type Code Date Perfomer Comments Sourc e No data available for this section Ambulato ry Pharmacy Endometrial Biopsy By Suction Endometrial Biopsy By Suction [id number] KAYLEY MUNIZ Test Test [id number] KAYLEY MUNIZ Screening papanicolaou smear; obtaining, preparing and conveyance of cervical or vaginal smear to laboratory KAYLEY MUNIZ Non-Physician Phone Call To Pt/Provider Intermed (11-20 min) Non-Physician Phone Call To Pt/Provider Intermed (11-20 min) [phone] TIM FRANCISCO Non-Physician Phone Call To Pt/Provider Intermed (11-20 min) Non-Physician Phone Call To Pt/Provider Intermed (11-20 min) [phone] TIM FRANCISCO Non-Physician Phone Call To Pt/Provider Intermed (11-20 min) Non-Physician Phone Call To Pt/Provider Intermed (11-20 min) [id number] TIM RIVERA Smoking ce ation cla es, non-physician provider, per se ion DEE CONNORS Medication Management By Pharmacist Each Additional 15 Minutes Medication Management By Pharmacist Each Additional 15 Minutes [id number] DEE CONNORS Medication Management By Pharmacist Initial 15 Minutes New Patient Medication Management By Pharmacist Initial 15 Minutes New Patient [id number] DEE CONNORS ment Of Tobacco Use Screening With Ce ation Intervention 011 BRIE MCCALL [facility] Non-Physician Phone Call To Pt/Provider Intermed (11-20 min) Non-Physician Phone Call To Pt/Provider Intermed (11-20 min) [id number] TIM DYKES Respiratory Equip IPPB Related Nebulizer W/ Compre Respiratory Equip IPPB Related Nebulizer W/ Compress [phone] JEANCARLOS VILLEGAS DoD Nebulizer, with compre or 009 JEANCARLOS VILLEGAS DoD Ophthalmological New Patient Start Intermediate Level Care Ophthalmological New Patient Start Intermediate Level Care [id number] DASHA LUBIN DoD CHEMODENERVATION OF MUSCLE(S); NECK MUSCLE(S) (EG, FOR SPASMODIC TORTICOLLIS, SPASMODIC DYSPHONIA) 005 DoD CHEMODENERVATION OF MUSCLE(S); NECK MUSCLE(S) (EG, FOR SPASMODIC TORTICOLLIS, SPASMODIC DYSPHONIA) 005 DoD FITTING OF SPECTACLES, EXCEPT FOR APHAKIA; MONOFOCAL 005 DoD SELF-CARE/HOME MANAGMENT TRAIN (EG,ACT OF DAILY LIVING (ADL) &COMPENSAT TRAIN,MEAL PREPARATION,SAFETY PROCS,AND INSTRUCT IN USE OF ASST TECHNOLOGY DEV/ADPT EQUIP) DIR ONE-ON-ONE CONT,EA 15 MINUTES 004 DoD APPLICATION OF A MODALITY TO 1 OR MORE AREAS; HOT OR COLD PACKS 004 DoD APPLICATION OF A MODALITY TO 1 OR MORE AREAS; HOT OR COLD PACKS 004 DoD APPLICATION OF A MODALITY TO 1 OR MORE AREAS; HOT OR COLD PACKS 004 DoD APPLICATION OF A MODALITY TO 1 OR MORE AREAS; HOT OR COLD PACKS 004 DoD APPLICATION OF A MODALITY TO 1 OR MORE AREAS; HOT OR COLD PACKS 004 DoD APPLICATION OF A MODALITY TO 1 OR MORE AREAS; HOT OR COLD PACKS 004 DoD RANGE OF MOTION MEASUREMENTS AND REPORT (SEPARATE PROCEDURE); HAND, WITH OR WITHOUT COMPARISON WITH NORMAL SIDE 004 DoD ONDANSETRON HYDROCHLORIDE 8 MG, ORAL, FDA APPROVED PRESCRIPTION ANTI-EMETIC, FOR USE A COMPLETE THERAPEUTIC SUBSTITUTE FOR AN IV ANTI-EMETIC AT TIME,CHEMO TX,NOT TO EXCEED A 48-HOUR DOSAGE REGIMEN 004 DoD ENDOMETRIAL SAMPLING (BIOPSY) WITH OR WITHOUT ENDOCERVICAL SAMPLING (BIOPSY), WITHOUT CERVICAL DILATION, ANY METHOD (SEPARATE PROCEDURE) 014 DoD SCREENING PAPANICOLAOU SMEAR; OBTAINING, PREPARING AND CONVEYANCE OF CERVICAL OR VAGINAL SMEAR TO LABORATORY 014 DoD TELE ASSESS & MGT SRV PROV QUAL NONPHYS HLTH CARE PRO TO EST PAT,PARENT,GUARD NOT ORIG REL ASSESS & MGT SRV PROV W/IN PREV 7 DAYS NOR LEAD ASSESS & MGT SRV/PX W/IN NXT 24H/SOON APT; 11-20 MIN MED DIS 013 DoD TELE ASSESS & MGT SRV PROV QUAL NONPHYS HLTH CARE PRO TO EST PAT,PARENT,GUARD NOT ORIG REL ASSESS & MGT SRV PROV W/IN PREV 7 DAYS NOR LEAD ASSESS & MGT SRV/PX W/IN NXT 24H/SOON APT; 11-20 MIN MED DIS 012 DoD TELE ASSESS & MGT SRV PROV QUAL NONPHYS HLTH CARE PRO TO EST PAT,PARENT,GUARD NOT ORIG REL ASSESS & MGT SRV PROV W/IN PREV 7 DAYS NOR LEAD ASSESS & MGT SRV/PX W/IN NXT 24H/SOON APT; 11-20 MIN MED DIS 012 [facility] SMOKING CESSATION CLASSES, NON-PHYSICIAN PROVIDER, PER SESSION 011 DoD PATIENT SCREENED FOR TOBACCO USE AND RECEIVED TOBACCO CESSATION INTERVENTION (COUNSELING, PHARMACOTHERAPY, OR BOTH), IF IDENTIFIED A TOBACCO USER (PV, CAD) 011 DoD TELE ASSESS & MGT SRV PROV QUAL NONPHYS HLTH CARE PRO TO EST PAT,PARENT,GUARD NOT ORIG REL ASSESS & MGT SRV PROV W/IN PREV 7 DAYS NOR LEAD ASSESS & MGT SRV/PX W/IN NXT 24H/SOON APT; 11-20 MIN MED DIS 011 DoD PRESSURIZED/NONPRESS INHAL TREAT FOR AC AIRWAY OBSTRUCT,THERAP PURPOSE &/FOR DIAG PURP SUCH SPUTUM INDUCTION W AN AEROSOL GEN,NEBULIZER,METER DOSE INHALER/INTERMIT POSIT PRESS BREATHING (IPPB) DEV 009 DoD OPHTHALMOLOGICAL SERVICES: MEDICAL EXAMINATION AND EVALUATION WITH INITIATION OF DIAGNOSTIC AND TREATMENT PROGRAM; INTERMEDIATE, NEW PATIENT 008 DoD SCREENING PAPANICOLAOU SMEAR; OBTAINING, PREPARING AND CONVEYANCE OF CERVICAL OR VAGINAL SMEAR TO LABORATORY 008 DoD UNLISTED SPECIAL SERVICE, PROCEDURE OR REPORT 006 DoD OTHER BILATERAL DESTRUCTION OR OCCLUSION OF FALLOPIAN TUBES 994 [facility] INJECTION OF RH IMMUNE GLOBULIN 993 [facility] REPAIR OF OTHER CURRENT OBSTETRIC LACERATION 993 [facility] OTHER ARTIFICIAL RUPTURE OF MEMBRANES 993 [facility] EPISIOTOMY 991 [facility] REMOVAL OF IMPLANT; SUPERFICIAL (EG, BURIED WIRE, PIN OR JOYCE) (SEPARATE PROCEDURE) 002 DoD REMOVAL OF IMPLANT; DEEP (EG, BURIED WIRE, PIN, SCREW, METAL BAND, NAIL, JOYCE OR PLATE) 002 DoD DRESSING CHANGE (FOR OTHER THAN BELLAMY) UNDER ANESTHESIA (OTHER THAN LOCAL) 002 DoD DRESSING CHANGE (FOR OTHER THAN BELLAMY) UNDER ANESTHESIA (OTHER THAN LOCAL) 002 DoD CORRECTION, HALLUX VALGUS WITH BUNIONECTOMY, WITH SESAMOIDECTOMY WHEN PERFORMED; WITH DISTAL METATARSAL OSTEOTOMY, ANY METHOD 002 DoD INFUSION, NORMAL SALINE SOLUTION , 1000 CC 001 DoD Social History Combined list of available smoking, tobacco, and other social history from Department of 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 Social History Type Response Date Comment [facility] e Sex Representation Female (finding) 02/07/2023 Unknown Organization Sexual Orientation Ambula tory Pharmacy Gender identity Ambulator y Pharmacy This section is an empty social history section. [facility] Assessment and Plan Combined list of future care activities from Department of Defense and Veterans Affairs facilities (e.g., assessment and plan notes, appointments, orders, and referrals). Additional future care activities may be listed in the Plan of Care section. Result Assessment and Plan Date Source Assessment and Plan No data available for this section 03/20/2025 Ambulatory Pharmacy Functional Status Combined list of recent functional and cognitive assessments recorded at Department of Defense and Veterans Affairs (VA).VA Functional Banner Measurement (FIM) Scale: 1 = Total Assistance (Subject = 0% +), 2 = Maximal Assistance (Subject = 25% +), 3 = Moderate Assistance (Subject = 50% +), 4 = Minimal Assistance (Subject = 75% +), 5 = Supervision, 6 = Modified Banner (Device), 7 = Complete Banner (Timely, Safely). Assessment Date/Time Source Assessment Type Assessment Skill Assessment Score Assessment Details No data available for this section
--- OUTSIDE RECORDS SUMMARY | 2025-03-20 10:19 | XMS_ITS | Clinical Summary ---
Author Organization [facility] [address] [facility] Address [address] [place] [address] Care Team Providers Care Sr. Payroll Processor Name Role Phone YemibetiJeronimo durand Primary Care Provide r Allergies No known active allergies Medications omeprazole (PriLOSEC) 40 mg capsuleIndicati ons:acid reflux Take 1 capsule (40 mg total) by mouth nightly 04/22/2023 Active sertraline (ZOLOFT) 50 mg tabletIndicatio ns:Anxiety with Depression Take 1 tablet (50 mg total) by mouth nightly 01/22/2023 Active zolpidem (AMBIEN) 10 mg tabletIndicatio ns:Sleep-Onset Insomnia Take 1 tablet (10 mg total) by mouth nightly as needed for sleep 05/16/2023 Active oxyCODONE (ROXICODONE) 5 mg immediate release tabletIndicatio ns:Pain Take 1 tablet (5 mg total) by mouth every 6 (six) hours as needed for pain 8 tablet 08/16/2023 Active polyethylene glycol (MIRALAX) 17 gram/dose bulk powder Take 17 g by mouth daily 238 g 08/16/2023 Active Active Problems Problem Noted Date Diagnosed Date Rectal mass 07/03/2023 Melena 06/04/2023 Overview (06/28/2023): Added automatically from request for surgery [id number] Cigarette nicotine dependence in remission 03/07 Immunizations Immunization Administration Dates Next Due Tdap 06/18/2022 Surgical History Surgery Date Site/Laterality Comments COLONOSCOPY last one 06/07/2023 APPENDECTOMY 10/21/2018 - 10/20/2019 INGUINAL HERNIA REPAIR 10/21/2007 - 10/20/2008 Left BUNIONECTOMY 10/21/2001 - 10/20/2002 Bilateral BREAST BIOPSY 10/21/1989 - 10/20/1990 Right Medical History Medical History Date Comments GERD (gastroesophageal reflux disease) Depression with anxiety Family History Medical History Relation Name Comments Anesthesia problems Neg Hx Social History Tobacco Use Types Packs/Day Years Used Date Smoking Tobacco: Former Cigarettes 1 37 1 984 - 2020 Passive Smoke Exposure: Never Smokeless Tobacco: Never AUDIT-C Answer Date Recorded Q1: How often do you have a drink containing alcohol? Never 08/16/2023 Q2: How many drinks containi ng alcohol do you have on a typical day when you are drinking? Patient does not drink Q3: How often do you have si x or more drinks on one occasion? Never 08/16/2023 Personal Safety Answer Date Recorded Have you ever been in or are you currently in a harmful physical or emotional relationship or is someone making you feel afraid or unsafe? Denies 08/16/2023 Comments Unknown Sex and Gender Information Value Date Recorded Sex Assigned at Not on file Legal Sex Female 9:44 AM CDT Gender Identity Not on file Sexual Orientation Not on file Obstetrics History Last Filed Vital Signs Vital Sign Reading Time Taken Comments Blood Pressure 117/73 08/16/2023 8:45 AM CDT Pulse 61 08/16/2023 8:45 AM CDT Temperature 36.6 C (97.9 F) 08/16/2023 8:45 AM CDT Respiratory Rate 28 08/16/2023 8:45 AM CDT Oxygen Saturation 91% 08/16/2023 8:45 AM CDT Inhaled Oxygen Concentration - - Weight 53.5 kg (118 lb) 07/29/2023 9:56 AM CDT Height 160 cm (5' 3) 07/29/2023 9:56 AM CDT Body Mass Index 20.9 07/29/2023 9:56 AM CDT Plan of Treatment Health Maintenance Due Date Last Done Comments Breast Cancer Screening-Mammogram 1964 Cervical Cancer Screening 1964 Colon Cancer Screening-Colonoscopy 1964 Depression Screening 1964 Hepatitis C Screening 1964 Hepatitis B Screening 1982 Regular Well Visit/Exam 18-64 1982 Lung Cancer Screening 2014 Zoster Vaccine (1 of 2) 2014 Covid-19 Vaccine (3 - 2023-2 5 season) 2024 03/23/2021, 03/02/2021 Influenza Vaccine (Season Ended) 2025 DTaP/Tdap/Td Vaccine (2 - Td or Tdap) 06/18/2032 06/18/2022 Pneumococcal vaccine <65 Aged Out No longer eligible based on patient's age to complete this topic Insurance [employer] Care Teams Sr. Payroll Processor Relationship Specialty Start Date End Date Jeronimo Fuchs DO [address] [place] [address] [phone] PCP - General Family Medicine 06/13/23
--- OUTSIDE RECORDS SUMMARY | 2025-03-20 10:19 | XMS_ITS | Referral Summary ---
Author Organization [facility] [address] [facility] Address [address] [place] [address] Care Team Providers Care Butt Welder Name Role Phone YemibetiJeronimo durand Primary Care [...] (06/28/2023): Added automatically from request for surgery [id number] Cigarette nicotine dependence in remission 03/07 Immunizations Immunization Administration Dates Next Due Tdap 06/18/2022 Social History Tobacco Use Types Packs/Day Years [...] on file Sexual Orientation Not on file Last Filed Vital Signs Vital Sign Reading [...] 07/29/2023 9:56 AM CDT Plan of Treatment Not on file Insurance [facility] Care Teams Butt Welder Relationship Specialty Start Date End Date Jeronimo Fuchs DO [address] [place] [address] [id number] PCP - General Family Medicine 06/13/23
--- OUTSIDE RECORDS SUMMARY | 2025-03-20 10:21 | XMS_ITS | Continuity of Care Document ---
Author Name [facility] Organization [facility] Care Team Providers Care Food Service Driver Name Role Phone [facility] Unavailable Unavailable Problems [...] Active Condition DoD visit for: services physical nursing home Active Condition DoD bronchitis Inactive Condition DoD [...] TABLET, ORAL, SANDOZ, 20 ea. BOTTLE Active [id number] 2023 10 Pharmac y Data Transac tion Service Facilit y CEFDINIR (CEFDINIR), 300MG, CAPSULE, ORAL, AUROBINDO PHARM, 60 ea. BOTTLE Active [id number] 2023 20 Pharmac y Data Transac tion Service Facilit y GAVILYTE-G (PEG 3350/NA SULF,BICARB ,CL/KCL), 236-22.74G, SOLN RECON, ORAL, GAVIS PHARMACEU, 4000 ml BOTTLE Cancele d [id number] : 2023 0 Pharmac y Data Transac tion Service Facilit y SERTRALINE HCL (SERTRALINE HCL), 50MG, TABLET, ORAL, AUROBINDO PHARM, 500 ea. BOTTLE Cancele d [id number] : 2023 0 Pharmac y Data Transac tion Service Facilit y ZOLPIDEM TARTRATE (ZOLPIDEM TARTRATE), 10MG, TABLET, ORAL, AUROBINDO PHARM, 100 ea. BOTTLE Cancele d [id number] : 2023 0 Pharmac y Data Transac tion Service Facilit y Allergies, Adverse Reactions, Alerts Combined list of allergies from Department of 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 It does not include entries that were removed or entered in error. Substance Category Reaction Severity Reaction type Status Date Reported Comments Source OTHER Drug allergy (disorder) Unknown active 6 [employer] Zaid [place]EDILLO [place] [place] OTHER Propensity to adverse reactions to drug Unknown Active 6 [id number] Unknown Organization Immunizations Combined list of available immunizations from the Department of 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 Immunization Series Date Given Administered By Site Reaction Lot Number CVX Code Drug Wound Nurse Status Comments Source COVID-19, mRNA, LNP-S, PF, 30 mcg/0.3 mL dose [place] Not Given COVID-19, mRNA, LNP-S, PF, 30 mcg/0.3 mL dose [facility] COVID-19, mRNA, LNP-S, PF, 30 mcg/0.[address] [facility] [place] [facility] Not Given COVID-19, mRNA, LNP-S, PF, 30 mcg/0.3 mL dose [facility] influenza virus vaccine, live 2007 [id number] 111 [employer] comple t ed influenza virus vaccine, live 07/20/08 Given Ambulat ory Pharmac y influenza virus vaccine, live, attenuated, for intranasal use 1 2007 [id number] 111 [employer], 365web[employer]. (MED) complet ed influenza virus vaccine, live, attenuate d, for intranasa l use [facility] tetanus, diphtheria, acellular pertu is 2007 [id number] 115 sanofi pasteur complet ed tetanus, diphtheri a, acellular pertussis 11/05/07 Given Ambulat ory Pharmac y tetanus toxoid, reduced diphtheria toxoid, and acellular pertu is vaccine, adsorbed 1 2007 [id number] 115 Sanofi Pasteur (PMC) complet ed tetanus toxoid, reduced diphtheri a toxoid, and acellular pertussis vaccine, adsorbed DoD influenza virus vaccine, live 2006 [id number] 111 [place] [employer] ([employer] comple t ed influenza virus vaccine, live 08/01/07 Given Ambulat ory Pharmac y influenza virus vaccine, live, attenuated, for intranasal use 0 2006 [id number] 111 [employer], [employer]. (MED) complet ed influenza virus vaccine, live, attenuate d, for intranasa l use DoD anthrax vaccine 2006 [id number] [employer] complet ed anthrax vaccine 07/12/07 Given Ambulat ory Pharmac y anthrax vaccine 3 2006 [id number] [employer] [place] (MIP) complet ed anthrax vaccine DoD anthrax vaccine 2006 [id number] [employer] complet ed anthrax vaccine 06/09/07 Given Ambulat ory Pharmac y anthrax vaccine 2 2006 [id number] [employer] [place] (MIP) complet ed anthrax vaccine DoD vaccinia (smallpox) vaccine 2006 [id number] emotion.me complet ed vaccinia (smallpox ) vaccine 05/15/07 Given Ambulat ory Pharmac y typhoid Vi capsular polysaccharid e vac 2006 [id number] 101 sanofi pasteur complet ed typhoid Vi capsular polysacch aride vac 05/15/07 Given Ambulat ory Pharmac y vaccinia (smallpox) vaccine 1 2006 [id number] 75 [facility]) complet ed vaccinia (smallpox ) vaccine DoD typhoid Vi capsular polysaccharid e vaccine 1 2006 [id number] 101 Sanofi Pasteur (PMC) complet ed typhoid Vi capsular polysacch aride vaccine DoD anthrax vaccine 2006 [id number] 24 [employer] complet ed anthrax vaccine 05/12/07 Given Ambulat ory Pharmac y anthrax vaccine 1 2006 [id number] [employer] [place] (MIP) complet ed anthrax vaccine DoD influenza virus vaccine,split 2005 [id number] 15 sanofi pasteur complet ed influenza virus vaccine,s plit 09/19/06 Given Ambulat ory Pharmac y influenza virus vaccine, split virus (incl. purified surface antigen)-reti red CODE 1 2005 [id number] 15 Sanofi Pasteur (PMC) complet ed influenza virus vaccine, split virus (incl. purified surface antigen)- retired CODE DoD measles, mumps and rubella virus vaccine 0 2005 03 () Not Given measles, mumps and rubella virus vaccine DoD tetanus-dipht h toxoids (Td) adult/adol 2004 [id number] 09 sanofi pasteur complet ed tetanus-d iphth toxoids (Td) adult/ado l 10/17/05 Given Ambulat ory Pharmac y tetanus and diphtheria toxoids, adsorbed, preservative free, for adult use (2 Lf of tetanus toxoid and 2 Lf of diphtheria toxoid) 1 2004 [id number] 09 Sanofi Pasteur (PMC) complet ed tetanus and diphtheri a toxoids, adsorbed, preservat rose free, for adult use (2 Lf of tetanus toxoid and 2 Lf of diphtheri a toxoid) DoD influenza virus vaccine, live 2004 [id number] 111 [place] [employer] ([employer] comple t ed influenza virus vaccine, live 07/24/05 Given Ambulat ory Pharmac y influenza virus vaccine, live, attenuated, for intranasal use 1 2004 [id number] 111 [employer], Inc. (MED) complet ed influenza virus vaccine, live, attenuate d, for intranasa l use DoD hepatitis B vaccine, adult dosage 0 2003 43 () Not Given hepatitis B vaccine, adult dosage DoD varicella virus vaccine 0 2002 21 () Not Given varicella virus vaccine DoD influenza virus vaccine, whole virus 2002 [id number] 16 Novartis Pharmaceutica complet ed influenza virus vaccine, whole virus 07/23/03 Given Ambulat ory Pharmac y influenza virus vaccine, whole virus 0 2002 [id number] 16 [employer] (PWJ) complet ed influenza virus vaccine, whole virus DoD influenza virus vaccine, whole virus 2001 [id number] 16 sanofi pasteur complet ed influenza virus vaccine, whole virus 08/19/02 Given Ambulat ory Pharmac y influenza virus vaccine, whole virus 0 2001 [id number] 16 Sanofi Pasteur (PMC) complet ed influenza virus vaccine, whole virus DoD influenza virus vaccine, whole virus 2000 [id number] 16 sanofi pasteur complet ed influenza virus vaccine, whole virus 08/19/01 Given Ambulat ory Pharmac y influenza virus vaccine, whole virus 0 2000 [id number] 16 Sanofi Pasteur ([facility]) complet ed influenza virus vaccine, whole virus DoD influenza virus vaccine, whole virus 2000 [id number] 16 sanofi pasteur complet ed influenza virus vaccine, whole virus 01/20/01 Given Ambulat ory Pharmac y influenza virus vaccine, whole virus 0 2000 [id number] 16 Sanofi [facility] ([facility]) complet ed influenza virus vaccine, whole virus DoD influenza virus vaccine, whole virus 1999 [id number] 16 [facility] complet ed influenza virus vaccine, whole virus 09/18/00 Given Ambulat ory Pharmac y influenza virus vaccine, whole virus 0 1999 [id number] 16 [facility] ([facility]) complet ed influenza virus vaccine, whole [...] oral DoD influenza virus vaccine, whole virus [id number] 16 [facility] complet ed influenza virus vaccine, whole virus 08/16/98 Given Ambulat ory Pharmac y influenza virus vaccine, whole virus 0 [id number] 16 [facility] ([facility]) complet ed influenza virus vaccine, whole virus DoD tuberculin purified protein derivative 1997 [id number] 96 [facility] complet ed Patient Tolerance : Negative Ambulat ory Pharmac y tuberculin skin test; purified protein derivative solution, intradermal 3 1997 Unknown, Provider [id number] 96 [employer] (CON) complet ed tuberculi n skin test; purified protein derivativ e solution, intraderm al DoD influenza virus vaccine, whole virus [id number] 16 [employer] complet ed influenza virus vaccine, whole virus 08/23/97 Given Ambulat ory Pharmac y influenza virus vaccine, whole virus 0 [id number] 16 [facility] (Inactive) ([place]) complet ed influenza virus vaccine, whole virus DoD tuberculin purified protein derivative 1996 [id number] 96 [facility] complet ed Patient Tolerance : Negative Ambulat ory Pharmac y tuberculin skin test; purified protein derivative solution, intradermal 2 1996 Unknown, Provider [id number] 96 [facility] (CON) complet ed tuberculi n skin test; [...] [facility]) OUTPATIENT [id number] Diarrhe ROSIE Reyes 07/20 Sick at Home/Quarter s DALIA Tellez(A [facility]) DALIA Tellez(Academ y Neurology ) OUTPATIENT [id number] BOTOX appt CHERYL CAO 09/26 Released w/o Limitations Kumar VILLALOBOS [place]Acad teresa Neurolo gy) Heath WILFREDO [place]([facility]) OUTPATIENT [id number] moles on back KATTY MANNING 10/01 Released w/o Limitations Kumar VILLALOBOS [place]([facility]) Heath WILFREDO [place](Academ y Neurology ) OUTPATIENT [id number] F/u Appt per Col Darciekrissyfrancisco javier FOREMANKRISSYCHERYL PEARSON A 10/11 Released w/o Limitations Kumar VILLALOBOS [place](Acad teresa Neurolo gy) [facility] Zaid Jaswinder [place] [place] Practice Non-GME FHI2) OUTPATIENT [id number] POSS BROKEN TOE LINNETTE LANDAVERDE 03/08 Released w/o Limitations [facility] Zaid B [facility]F amily Practic e Non-GME FHI2) [facility] Zaid [facility] Practice Non-GME FHI2) OUTPATIENT [id number] left inguina l bulge x 2 days, tender LINNETTE LANDAVERDE 07/15 Released w/o Limitations [facility] Zaid [facility])(F amily Practic e Non-GME FHI2) [address] [place] [address] Zaid [facility])(Gen eral Surgery) OUTPATIENT [id number] hernia KELTON NIX 07/18 Released w/o Limitations [facility] Zaid [facility])(G eneral Surgery ) [address] [place] [address] Zaid [facility])([facility] Practice Non-GME FHI2) TELE CONSULT [id number] med see- DAVID Hair 07/[address] [place] [address] Zaid [facility])(F amily Practic e Non-GME FHI2) [address] [place] [address] Zaid [facility])(Gen eral Surgery) OUTPATIENT [id number] hernia KELTON NIX 08/22 Released w/o Limitations [address] [place] [address] Zaid B ([facility] [place]G eneral Surgery ) [address] [place] [address] Zaid [facility])([facility]) OUTPATIENT [id number] AYLA Simon 09/04 Released w/o Limitations [facility] Medical Group Zaid CEDILLO ([facility] [place]) [address] [place] [address] Zaid NGUYEN [facility] galileo Practice Non-GME FHI1) OUTPATIENT [id number] abdomin al pain AMERICA DAVIS Nikita 01/08 Released w/o Limitations [address] [place] [address] Zaid CHASEJaswinder ([facility] [place]F amily Practic e Non-GME FHI1) [address] [place] [address] Zaid CHASEB [facility]) OUTPATIENT [id number] JEANCARLOS CANDELARIO 05/19 Released w/o Limitations [address] [place] [address] Group Zaid CHASEJaswinder [facility]) [address] [place] [address] Zaid CHASEB [facility]) OUTPATIENT [id number] [facility] JEANCARLOS VILLEGAS 05/19 Released w/o Limitations [address] [place] [address] Zaid [facility] ([facility]) Theater Facility OUTPATIENT [id number] 07/12 Released w/o Limitations Theater Facilit y Theater Facility OUTPATIENT [id number] 08/28 Released w/o Limitations Theater Facilit y [address] [place] [address] Zaid CHASEJaswinder [facility] Internal Medicine ) OUTPATIENT [id number] well woman/P ap MDG access JASMEET MAGANA 01/14 Released w/o Limitations [address] [place] [address] Zaid CHASEJaswinder [facility]S cott Interna l Medicin e Tm) [address] [place] [address] Zaid CHASEJaswinder [facility] ) TELE CONSULT [id number] LAB RESULTS AFTER JASMEET MAGANA 01/[address] [place] [address] Group Zaid CHASEB [facility]S cott Interna l Medicin e Tm) [address] [place] [address] Zaid CHASEJaswinder [facility] galileo Practice Non-GME FHI1) OUTPATIENT [id number] stomach problem s LIBERTY MCCALL 01/27 Sick at Home/Quarter s [address] [place] [address] Zaid CHASEB [facility]F amily Practic e Non-GME FHI1) [address] [place] [address] Zaid CHASEJaswinder [facility]Fam galileo Practice Non-GME FHI1) TELE CONSULT [id number] YOBANIRA SILVER GRESHAM L 02/[address] [place] [address] Zaid CEDILLO [facility])(F amily Practic e Non-GME FHI1) [address] [place] [address] Zaid CEDILLO [facility] Practice Non-GME FHI2) OUTPATIENT [id number] dx w/herni ated c-spine disks 2 yrs ago, now c/o n/t ortega upper ext JAVED MAGALLANES 02/08 Released w/o Limitations [address] [place] [address] Zaid CEDILLO [facility]F amily Practic e Non-GME FHI2) [address] [place] [address] Zaid STONEB ([facility] [place] Practice Non-GME FHI1) OUTPATIENT [id number] [facility] - Web Based Assessm ent (9) MATT TANNER 05/25 Released w/o Limitations [address] [place] [address] Zaid CEDILLO ([facility] [place] [place]F amily Practic e Non-GME FHI1) [address] [place] [address] Zaid CEDILLO [facility]Opt ometry) OUTPATIENT [id number] conjunc tival hemorrh age left eye DASHA LUBIN 05/26 Released w/o Limitations [address] [place] [address] Zaid STONEB ([facility] [place] [place]O ptometr y) [address] [place] [address] Zaid CEDILLO [facility] Practice Non-GME FHI2) OUTPATIENT [id number] abnorma l bleedin g in abd. and flank pain [phone] BRIE MCCALL L 11/22 Released w/o Limitations [address] [place] [address] Zaid CEDILLO [facility]F amily Practic e Non-GME FHI2) [address] [place] [address] Zaid STONEB [facility] Practice Non-GME FHI1) OUTPATIENT [id number] Cold Symptom s JEANCARLOS VILLEGAS 12/03 Released w/o Limitations [address] [place] [address] Zaid CEDILLO [facility])(F amily Practic e Non-GME FHI1) [address] [place] [address] Zaid CEDILLO [facility]) OUTPATIENT [id number] [facility]-MOB EX AMERICA DAVIS 12/31 Released w/o Limitations [address] [place] [address] Zaid STONEB ([facility] [place] [place]D [facility]) [address] [place] [address] Zaid STONEB [facility]Fam galileo Med Tm B Non-AD BCC) OUTPATIENT [id number] Retirem ent physica l [phone] BRIE MCCALL 02/10 Released w/o Limitations [address] [place] [address] Zaid STONEB ([facility] [place] [place]F amily Med Tm B Non-AD BCC) [address] [place] [address] Zaid STONEB [facility]Fam galileo Med Tm B Non-AD BCC) TELE CONSULT [id number] Rad Results BRIE MCCALL 02/[address] [place] [address] Zaid [facility])(F amily Med Tm B Non-AD BCC) [address] [place] [address] Zaid STONEB [facility]) DENTAL [id number] op dent #29, #30 SHERRY FOWLER 03/02 Released w/o Limitations [address] [place] [address] Zaid CEDILLO ([facility] [place] [place]D ental Clinic) [address] [place] [address] Zaid STONEB [facility]Fam galileo Med Tm B Non-AD BCC) TELE CONSULT [id number] PCM - Dr. Mccall - prx fefill WALTER MATHIS 12/[address] [place] [address] Zaid STONEB [facility])(F amily Med Tm B Non-AD BCC) [address] [place] [address] Zaid STONEB [facility]Fam galileo Med Tm B Non-AD BCC) TELE CONSULT [id number] Lab Results WALTER MATHIS 01/[address] [place] [address] Zaid STONEB ([facility] [place] [place]F amily Med Tm B Non-AD BCC) [address] [place] [address] Zaid STONEB [facility]Fam galileo Med Tm B Non-AD BCC) OUTPATIENT [id number] fu medicat ions and refills [phone] BRIE MCCALL 01/19 Released w/o Limitations [address] [place] [address] Zaid STONEB ([facility] [place] [place]F amily Med Tm B Non-AD BCC) [address] [place] [address] Zaid STONEB [facility]Fam galileo Med Tm B Non-AD BCC) TELE CONSULT [id number] pt request refill of Ambien( msg left on DM line) Radha [phone] FELICITA PARKER 08/[address] [place] [address] Zaid CHASEB [facility]F amily Med Tm B Non-AD BCC) [address] [place] [address] Zaid CHASEB [facility]Fam galileo Med Tm B Non-AD BCC) OUTPATIENT [id number] blood in stools [phone] BRIE MCCALL 11/13 Released w/o Limitations [address] [place] [address] Zaid STONEB ([facility] [place]F amily Med Tm B Non-AD BCC) [address] [place] [address] Zaid STONEB ([facility] [place]Fam galileo Med Tm B Non-AD BCC) TELE CONSULT [id number] Med refill/ Mccall/WALTER Cantu 01/[address] [place] [address] Zaid CHASEB [place] [place] [place]F amily Med Tm B Non-AD BCC) [address] [place] [address] Zaid CHASEB ([facility] [place] [place]Fam galileo Med Tm B Non-AD BCC) TELE CONSULT [id number] med refill TIM Conner 08/[address] [place] [address] Zaid CHASEB ([facility] [place] [place]F amily Med Tm B Non-AD BCC) [address] [place] [address] Zaid CHASEB ([facility] [place] [place]Fam galileo Med Tm B Non-AD BCC) OUTPATIENT [id number] f/u depress ion BRIE MCCALL 08/13 Released w/o Limitations [address] [place] [address] Zaid STONEB ([facility] [place] [place]F amily Med Tm B Non-AD BCC) [address] [place] [address] Zaid CHASEB ([facility] [place] Pharm D Clinic) OUTPATIENT [id number] Smoking Cessati on DEE CONNORS 08/27 Released w/o Limitations [address] [place] [address] Zaid STONEB ([facility]I Pharm D Clinic) [address] [place] [address] Zaid CHASEB [facility]Fam galileo Med Tm B Non-AD BCC) TELE CONSULT [id number] Notes Entered by: Jagdish WILLIAMSON 29 Jul 2012 0839 ------- ------- ------- ------- -- Med refill/ [facility]/jagdish ad/cls [phone] TIM FRANCISCO 07/[address] [place] [address] Zaid CHASEB ([facility] [place] [place]F amily Med Tm B Non-AD BCC) [address] [place] [address] Zaid CHASEB ([facility] [place] [place]Fam galileo Med Tm B Non-AD BCC) OUTPATIENT [id number] follow up zoloft medicat ion [id number] ABIGAIL MORALES 08/12 Released w/o Limitations [address] [place] [address] Group Zaid [facility] ([facility]F amily Med Tm B Non-AD BCC) [address] [place] [address] Zaid [facility])(Fam galileo Med Tm B Non-AD BCC) TELE CONSULT [id number] Notes Entered by: Nik MORALES 10 Sep 2012 0856 ------- ------- ------- ------- -- lab ABIGAIL MORALES 09/[address] [place] [address] Zaid [facility])(F amily Med Tm B Non-AD BCC) [address] [place] [address] Zaid [facility])(War rior Op Med Cln Tm A Ad) TELE CONSULT [id number] Notes Entered by: KASHMIR STARK 30 Sep 2012 1708 ------- ------- ------- ------- -- Network Results - GASTROE YUDITH GY 09/26/12 ABIGAIL MORALES 09/[address] [place] [address] Group Zaid [facility])(W arrior Op Med Cln Tm A Ad) [address] [place] [address])(Fam galileo Med Tm B Non-AD BCC) TELE CONSULT [id number] Notes Entered by: Nik MORALES 01 Oct 2012 1250 ------- ------- ------- ------- -- labs TIM FRANCISCO 10/[address] [place] [address] Zaid [facility])(F amily Med Tm B Non-AD BCC) [address] [place] [address] Zaid [facility])(Fam galileo Med Tm B Non-AD BCC) OUTPATIENT [id number] Sleep concern s [phone] MARGARITA ZAVALA 12/24 Released w/o Limitations [address] [place] [address] Group Zaid [facility] ([facility]F amily Med Tm B Non-AD BCC) [address] [place] [address] Zaid [facility] ([facility]Fam galileo Med Tm B Non-AD BCC) TELE CONSULT [id number] Notes Entered by: NATALIA ORTIZ 02 Feb 2013 0732 ------- ------- ------- ------- -- Back pain, leg pain, chills, sweatin mariangel - Dulce Maria - TIM FRANCISCO 02/[address] [place] [address])(F amily Med Tm B Non-AD BCC) [address] [place] [address])(Loan Review Officer ecology) OUTPATIENT [id number] [facility] [id number] KAYLEY MUNIZ 02/02 Released w/o Limitations [address] [place] [address])(G ynecolo gy) [address] [place] [address])(Loan Review Officer ecology) TELE CONSULT [id number] Notes Entered by: KAYLEY MUNIZ 12 Feb 2014 0747 ------- ------- ------- ------- -- results JEFF VALENTE 02/[address] [place] [address])(G ynecolo gy) [address] [place] [address])(Loan Review Officer ecology) OUTPATIENT [id number] [facility] - [phone] KAYLEY MUNIZ 02/15 Released w/o Limitations [address] [place] [address])(G ynecolo gy) [address] [place] [id number])(Loan Review Officer ecology) TELE CONSULT [id number] Notes Entered by: KAYLEY MUNIZ 24 Feb 2014 1228 ------- ------- ------- ------- -- Embx results JEFF VALENTE 02/[address] [place] [address])(G ynecolo gy) [address] [place] [address])(Loan Review Officer ecology) TELE CONSULT [id number] Notes Entered by: Lonny POMPA 06 Apr 2014 1634 ------- ------- ------- ------- -- Pelvic US f/u KANDY WHARTON 04/[address] [place] [address])(G ynecolo gy) [facility] Outpatient Encounter [id number] 04/22 [facility] Procedures Combined list of: 1) Procedures from [facility] facilities going back up to thelast 18 months, not all [place] non-surgical procedures are included; 2) All procedures from the Department of Defense facilities. Procedure Procedure Type Code Date Perfomer Comments Sourc e No data available for this section [facility] Endometrial Biopsy By Suction Endometrial Biopsy By Suction [id number] KAYLEY MUNIZ Test Test [id number] KAYLEY MUNIZ Screening papanicolaou smear; obtaining, preparing and conveyance of cervical or vaginal smear to laboratory KAYLEY MUNIZ Non-Physician Phone Call To Pt/Provider Intermed (11-20 min) Non-Physician Phone Call To Pt/Provider Intermed (11-20 min) [id number] TIM FRANCISCO Non-Physician Phone Call To Pt/Provider Intermed (11-20 min) Non-Physician Phone Call To Pt/Provider Intermed (11-20 min) [phone] TIM FRANCISCO Non-Physician Phone Call To Pt/Provider Intermed (11-20 min) Non-Physician Phone Call To Pt/Provider Intermed (11-20 min) [id number] TIM RIVERA Smoking ce ation cla es, non-physician provider, per se ion DEE CONNORS Medication Management By Pharmacist Each Additional 15 Minutes Medication Management By Pharmacist Each Additional 15 Minutes [id number] DEE CONNORS Medication Management By Pharmacist Initial 15 Minutes New Patient Medication Management By Pharmacist Initial 15 Minutes New Patient [id number] DEE CONNORS ment Of Tobacco Use Screening With Ce ation Intervention 011 BRIE MCCALL [facility] Non-Physician Phone Call To Pt/Provider Intermed (11-20 min) Non-Physician Phone Call To Pt/Provider Intermed (11-20 min) [id number] TIM DYKES Respiratory Equip IPPB Related Nebulizer W/ Compre Respiratory Equip IPPB Related Nebulizer W/ Compress [id number] JEANCARLOS VILLEGAS DoD Nebulizer, with compre or 009 JEANCARLOS VILLEGAS DoD Ophthalmological New Patient Start Intermediate Level Care Ophthalmological New Patient Start Intermediate Level Care [id number] DASHA LUBIN DoD CHEMODENERVATION OF MUSCLE(S); [...] 24H/SOON APT; 11-20 MIN MED DIS 012 [facility] SMOKING CESSATION CLASSES, NON-PHYSICIAN PROVIDER, PER SESSION [...] DESTRUCTION OR OCCLUSION OF FALLOPIAN TUBES 994 [facility] INJECTION OF RH IMMUNE GLOBULIN 993 [facility] REPAIR OF OTHER CURRENT OBSTETRIC LACERATION 993 [facility] OTHER ARTIFICIAL RUPTURE OF MEMBRANES 993 [facility] EPISIOTOMY 991 [facility] REMOVAL OF IMPLANT; SUPERFICIAL (EG, BURIED WIRE, [...] facilities. Social History Type Response Date Comment [facility] Sex Representation Female (finding) 02/07/2023 Unknown Organization Sexual Orientation [facility] Gender identity [facility] This section is an empty social history section. [facility] Assessment and Plan Combined list of future [...] of Defense and Veterans Affairs (VA).VA Functional Perkins Measurement (FIM) Scale: 1 = Total Assistance (Subject = 0% +), 2 = Maximal Assistance (Subject = 25% +), 3 = Moderate Assistance (Subject = 50% +), 4 = Minimal Assistance (Subject = 75% +), 5 = Supervision, 6 = Modified Perkins (Device), 7 = Complete Perkins (Timely, Safely). Assessment Date/Time Source Assessment Type Assessment Skill Assessment Score Assessment Details No data available for this section
--- NOTE | 2025-03-20 10:22 | ED.URI ---
HPI - URI/Sore Throat General Chief Complaint: Upper Respiratory Infection Stated Complaint: Upper Respiratory Infection patient presents to the [facility] with complaints of chest tightness, chest congestion, occasional productive cough, shortness of breath, wheezing, nasal drainage, fatigue, and headaches that began over the last 2 weeks. The patient does report she quit smoking several years ago and was told she has emphysema on previous chest CT she has had but denies any use of as-needed inhaler or daily inhaler. No known sick contacts. Denies fever, chills, body aches, dizziness, nausea, diarrhea, sinus pain Related Data Home Medications ?Medication ?Instructions ?Recorded ?Confirmed ?Last Taken ?Type zolpidem 10 mg tablet 10 mg PO PRN PRN Insomnia 01/28/24 03/20/25 Unknown History sertraline 50 mg tablet 50 mg DIRECTED 06/18/24 06/18/24 Unknown History Allergies Allergy/AdvReac Type Severity Reaction Status Date / Time nitrofurantoin (From AdvReac Intermediate Nausea and Verified 03/20/25 10:21 Macrobid) Vomiting Review of Systems Constitutional: Constitutional: Reports as per HPI, Denies chills, Reports fatigue, Denies fever(s) and Denies weakness ENT: Reports as per HPI, Denies dysphagia, Denies vertigo, Denies dizziness, Denies nasal congestion and Denies sore throat Comments: Nasal drainage Cardiovascular: Cardiovascular: Reports as per HPI, Denies chest pain, Denies rapid heart rate, Denies radiating jaw, neck or arm pain and Denies slow heart rate Respiratory: Respiratory: Reports as per HPI, Reports chest congestion, Reports cough, Reports dyspnea and Reports wheezing Gastrointestinal: Gastrointestinal: Reports no additional gastrointestinal complaints Genitourinary: Genitourinary: Reports no additional female genitourinary complaints Musculoskeletal: Musculoskeletal: Reports no additional musculoskeletal complaints Integumentary/Breasts: Skin/Breast: Reports as per HPI and Denies rash Neurologic: Reports as per HPI and Denies headache(s) Psychiatric: Psychiatric: Reports no additional psychiatric complaints Endocrine: Endocrine: Reports no additional endocrine complaints Hematologic/Lymphatic: Hematologic/Lymphatic: Reports no additional hematologic/lymphatic complaints Allergic/Immunologic: Allergic/Immunologic: Reports no additional allergic/immunologic complaints PMFSH Past Medical History Medical History Rectal mass Surgical removal Surgical History Surgical History History of bunionectomy Family History Family History Other Hypertension Social History Social History Smoking status: Current every day smoker Alcohol intake: current Exam Const: General: healthy appearing and no acute distress; No ill appearing Nutritional Appearance: well nourished Orientation/consciousness: patient oriented x3 Limitations: no limitations HENMT: Head: normal to inspection Ears: external ears normal and TM's normal bilaterally Face/Nose/Sinus: Normal external nose present and Normal nares present Face and sinus: normal facial exam and sinuses tender Mouth: Yes Normal oral and palatal mucosa present, Yes lip normal and Yes moist mucous membranes Throat: posterior oropharynx normal and uvula midline Neck: Neck: no lymphadenopathy Chest: Chest palpation & inspection: normal inspection of the chest Resp: Effort & Inspection: normal respiratory effort Auscultation: no crackles, no rales, rhonchi left upper and right upper, no wheezes, breath sounds present and diminished lung sounds diffuse Cardio: Rate: regular rate Rhythm: regular rhythm Heart sounds: no murmurs Skin: General skin exam: normal color Rashes: no rashes Wounds: no wounds Neuro: General: patient oriented x3 and moves all extremities Speech: normal speech Gait exam (Neuro): Normal gait present Psych: Mental Status: mental status grossly normal Affect: normal affect Attitude: cooperative Course Course Level of Care: Express Care Visit MDM - URI/Sore Throat MDM Narrative Medical decision making narrative: history of emphysema. Two weeks of symptoms will treat with steroids, inhaler, and antibiotics. Educated patient on this medication Discharge instructions reviewed with patient, as well as provided in writing per nursing staff. The instructions also include specific and strict return/GO TO THE ER as well as f/u information. All questions have been answered, and the patient deny any further questions with discharge and discharge plan. Differential Diagnosis Differential diagnosis: Likely upper respiratory infection, sinusitis, bronchitis and other ( COPD exacerbation, pneumonia) Medical Records Attestation: I reviewed the patient's medical records. Discharge Plan Discharge Clinical Impression: Bronchitis, Chronic obstructive pulmonary disease with (acute) exacerbation Patient Disposition: Home Condition: Stable Instructions: Antibiotic Form, Emphysema (ED), Chronic Bronchitis (ED), Dyspnea Scale and Exercise (ED) Additional Instructions: take the antibiotics and steroids as directed. May use [id number] cough cold medications like Mucinex, Sudafed, Flonase, and Delsym follow-up with primary care provider in the next 1-2 weeks if symptoms are not improved If symptoms get significantly worse go to the emergency room for further evaluation. Patient Language: Pashto Prescriptions: New methylprednisolone [Medrol (Maximus)] 4 mg tablets,dose pack See Rx Instructions .ROUTE .COMPLEX Qty: 21 0RF Rx Instructions: for 6 days doxycycline monohydrate 100 mg capsule 100 mg PO BID Qty: 20 0RF albuterol sulfate [Ventolin HFA] 90 mcg/actuation HFA aerosol inhaler 2 puff inhalation QID PRN (Reason: shortness of breath or wheezing) Qty: 6.7 0RF No Action zolpidem 10 mg tablet 10 mg PO PRN PRN (Reason: Insomnia) sertraline 50 mg tablet 50 mg DIRECTED Follow-up/Referrals: Lenka,SHAUN Mclain [Primary Care Provider] - ( follow-up in office in 1-2 weeks) Time of Disposition: 10:37
[2025-03-20 10:24] VITALS: BP 132/74; PULSE 56; RESP 18; TEMP 36.4; O2SAT 97
== END 2025-03-20 10:39 | disposition home or self-care (01) ==
PROVIDERS: Emergency Provider Nurse Practitioner Family; PCP Registered Nurse
DX: J44.1 Chronic obstructive pulmonary disease with (acute) exacerbation (principal); J40 Bronchitis, not specified as acute or chronic; F17.210 Nicotine dependence, cigarettes, uncomplicated
CPT/HCPCS: 99213; G0463

== ENCOUNTER 2025-05-22 10:28 | Emergency (ER) | payer OTHER, SELFPAY ==
--- OUTSIDE RECORDS SUMMARY | 2025-05-22 10:38 | XMS_ITS | Continuity of Care Document ---
Author Name [facility] Organization [facility] Care Team Providers Care Disease Case Manager Rn Name Role Phone [facility] Unavailable Unavailable Problems Combined list of problems from Department of 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 It does not include entries that were removed or entered in error. 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 DoD NORMAL ROUTINE OPHTHALMOLOGICAL EXAM Inactive Condition DoD Vaccines Prophylactic Need Against Single Disease Inactive Condition DoD visit for: services physical Active Condition DoD URINARY TRACT INFECTION Inactive Condition DoD abdominal pain Active Condition DoD Preventive Medicine New Patient Evaluation Adult 40-64 Inactive Condition DoD visit for: postsurgical exam Inactive Condition s/p left inguinal hernia repair with mesh DoD visit for: issue repeat prescription for medication Inactive Condition DoD INGUINAL HERNIA ON THE LEFT Active Condition DoD HERNIA Active Condition CT to eval hernia, follow up if pain worsens. DoD joint pain in the toes Active Condition no visible fx seen on x-ray. Toe aaron taped, darvocet as needed. Pt given post-op shoe to wear as needed, follow up if sx's worsen or don't resolve. DoD CERVICALGIA Active Condition DoD NON-NEOPLASTIC NEVUS Active Condition the patient is to apply sunblock when going in the sun. Discussed the ABCD's of skin care with her and if she notes any changes in the moles she is to return to the clinic em. DoD GASTRITIS ACUTE Active Condition ..OF F DUTIES 24 HRS, >H2O,REST F/U ADVISED! DoD Medications Combined list of outpatient medications from Department of 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Medications provided include 1) outpatient medications from the last 15 months, and 2) patient-reported medications. Medication Details Route Status Patient Instructions Prescription Expires Prescription Number Last Dispense Date Ordering Provider Order Date Order Qty Source ZOLPIDEM TARTRATE (ZOLPIDEM TARTRATE), 10MG, TABLET, ORAL, AUROBINDO PHARM, 100 ea. BOTTLE Cancele d [id number] : 2023 0 Pharmac y Data Transac tion Service Facilit y Allergies, Adverse Reactions, Alerts Combined list of allergies from Department of 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 It does not include entries that were removed or entered in error. Substance Category Reaction Severity Reaction type Status Date Reported Comments Source OTHER Drug allergy (disorder) Unknown active 6 [employer] Zaid CEDILLO ([facility] OTHER Propensity to adverse reactions to drug Unknown Active 6 [id number] Unknown Organization Immunizations Combined list of available immunizations from the Department of 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 Immunization Series Date Given Administered By Site Reaction Lot Number CVX Code Drug Collision Repair Technician Status Comments Source COVID-19, mRNA, LNP-S, PF, 30 mcg/0.3 mL dose 2020 FONTANA, Danal d/b/a [employer] [place] (PFR) Not Given COVID-19, mRNA, LNP-S, PF, 30 mcg/0.3 mL dose [facility] COVID-19, mRNA, LNP-S, PF, 30 mcg/0.3 mL dose 2020 [employer] [place] (PFR) Not Given COVID-19, mRNA, LNP-S, PF, 30 mcg/0.3 mL dose DoD influenza virus vaccine, live 2007 [id number] [employer] comple t ed influenza virus vaccine, live 07/20/08 Given Ambulat ory Pharmac y influenza virus vaccine, live, attenuated, for intranasal use 1 2007 [id number] 111 [employer] (MED) complet ed influenza virus vaccine, live, attenuate d, for intranasa l use DoD tetanus, diphtheria, acellular pertu is 2007 [id number] 115 sanofi pasteur complet ed tetanus, diphtheri a, acellular pertussis 11/05/07 Given Ambulat ory Pharmac y tetanus toxoid, reduced diphtheria toxoid, and acellular pertu is vaccine, adsorbed 1 2007 [id number] Sanofi Pasteur ([facility]) complet ed tetanus toxoid, reduced diphtheri a toxoid, and acellular pertussis vaccine, adsorbed DoD influenza virus vaccine, live 2006 [id number] 111 [employer] comple t ed influenza virus vaccine, live 08/01/07 Given Ambulat ory Pharmac y influenza virus vaccine, live, attenuated, for intranasal use 0 2006 [id number] 111 [employer] (MED) complet ed influenza virus vaccine, live, attenuate d, for intranasa l use DoD anthrax vaccine 2006 [id number] [employer] complet ed anthrax vaccine 07/12/07 Given Ambulat ory Pharmac y anthrax vaccine 3 2006 [id number] [employer] [place] (MIP) complet ed anthrax vaccine DoD anthrax vaccine 2006 [id number] [employer] complet ed anthrax vaccine 06/09/07 Given Ambulat ory Pharmac y anthrax vaccine 2 2006 [id number] [employer] [place] (MIP) complet ed anthrax vaccine DoD vaccinia (smallpox) vaccine 2006 [id number] Février 46 complet ed vaccinia (smallpox ) vaccine 05/15/07 Given Ambulat ory Pharmac y typhoid Vi capsular polysaccharid e vac 2006 [id number] 101 sanofi pasteur complet ed typhoid Vi capsular polysacch aride vac 05/15/07 Given Ambulat ory Pharmac y vaccinia (smallpox) vaccine 1 2006 [id number] 75 Jensen (RADHA) complet ed vaccinia (smallpox ) vaccine DoD typhoid Vi capsular polysaccharid e vaccine 1 2006 [id number] 101 Sanofi Pasteur (PMC) complet ed typhoid Vi capsular polysacch aride vaccine DoD anthrax vaccine 2006 [id number] [employer] complet ed anthrax vaccine 05/12/07 Given Ambulat ory Pharmac y anthrax vaccine 1 2006 [id number] [employer] [place] (MIP) complet ed anthrax vaccine DoD influenza virus vaccine,split 2005 [id number] 15 sanofi pasteur complet ed influenza virus vaccine,s plit 09/19/06 Given Ambulat ory Pharmac y influenza virus vaccine, split virus (incl. purified surface antigen)-reti red CODE 1 2005 [id number] 15 Sanofi Pasteur (PMC) complet ed influenza virus vaccine, split virus (incl. purified surface antigen)- retired CODE DoD measles, mumps and rubella virus vaccine 0 2005 03 () Not Given measles, mumps and rubella virus vaccine [facility] tetanus-dipht h toxoids (Td) adult/adol 2004 [id number] 09 sanofi pasteur complet ed tetanus-d iphth toxoids (Td) adult/ado l 10/17/05 Given Ambulat ory Pharmac y tetanus and diphtheria toxoids, adsorbed, preservative free, for adult use (2 Lf of tetanus toxoid and 2 Lf of diphtheria toxoid) 1 2004 [id number] 09 Sanofi Pasteur (PMC) complet ed tetanus and diphtheri a toxoids, adsorbed, preservat rose free, for adult use (2 Lf of tetanus toxoid and 2 Lf of diphtheri a toxoid) DoD influenza virus vaccine, live 2004 [id number] 111 [employer] comple t ed influenza virus vaccine, live 07/24/05 Given Ambulat ory Pharmac y influenza virus vaccine, live, attenuated, for intranasal use 1 2004 [id number] 111 [employer] (MED) complet ed influenza virus vaccine, live, attenuate d, for intranasa l use DoD hepatitis B vaccine, adult dosage 0 2003 43 () Not Given hepatitis B vaccine, adult dosage DoD varicella virus vaccine 0 2002 21 () Not Given varicella virus vaccine DoD influenza virus vaccine, whole virus 2002 [id number] [employer]is [employer] ls complet ed influenza virus vaccine, whole virus 07/23/03 Given Ambulat ory Pharmac y influenza virus vaccine, whole virus 0 2002 [id number] 16 [employer] (PWJ) complet ed influenza virus vaccine, whole virus DoD influenza virus vaccine, whole virus 2001 [id number] 16 sanofi pasteur complet ed influenza virus vaccine, whole virus 08/19/02 Given Ambulat ory Pharmac y influenza virus vaccine, whole virus 0 2001 [id number] 16 Sanofi Pasteur (PMC) complet ed influenza virus vaccine, whole virus DoD influenza virus vaccine, whole virus 2000 [id number] 16 sanofi pasteur complet ed influenza virus vaccine, whole virus 08/19/01 Given Ambulat ory Pharmac y influenza virus vaccine, whole virus 0 2000 [id number] 16 Sanofi Pasteur (PMC) complet ed influenza virus vaccine, whole virus DoD influenza virus vaccine, whole virus 2000 [id number] 16 sanofi pasteur complet ed influenza virus vaccine, whole virus 01/20/01 Given Ambulat ory Pharmac y influenza virus vaccine, whole virus 0 2000 [id number] 16 Sanofi Pasteur (PMC) complet ed influenza virus vaccine, whole virus DoD influenza virus vaccine, whole virus 1999 [id number] 16 [employer] [facility] complet ed influenza virus vaccine, whole virus 09/18/00 Given Ambulat ory Pharmac y influenza virus vaccine, whole virus 0 1999 [id number] 16 [facility] ([facility]) complet ed influenza virus vaccine, whole [...] oral DoD influenza virus vaccine, whole virus [id number] 16 [facility] complet ed influenza virus vaccine, whole virus 08/16/98 Given Ambulat ory Pharmac y influenza virus vaccine, whole virus 0 [id number] 16 [facility] ([facility]) complet ed influenza virus vaccine, whole virus DoD tuberculin purified protein derivative 1997 [id number] 96 [employer] [facility] complet ed Patient Tolerance : Negative Ambulat ory Pharmac y tuberculin skin test; purified protein derivative solution, intradermal 3 1997 Unknown, Provider [id number] 96 [facility] ([facility]) complet ed tuberculi n skin test; purified protein derivativ e solution, intraderm al DoD influenza virus vaccine, whole virus 19969949 [id number] 16 [employer] complet ed influenza virus vaccine, whole virus 08/23/97 Given Ambulat ory Pharmac y influenza virus vaccine, whole virus 0 19966547 [id number] 16 [facility] (Inactive) ([place]) complet ed influenza virus vaccine, whole virus DoD tuberculin purified protein derivative 1996 [id number] 96 [facility] complet ed Patient Tolerance : Negative Ambulat ory Pharmac y tuberculin skin test; purified protein derivative solution, intradermal 2 1996 Unknown, Provider [id number] 96 [employer] (CON) complet ed tuberculi n [...] DoD typhoid vaccine, parenteral, acetone-kille d, dried ([place].S. ) 2 1994 53 (MV) complet ed [...] ed trivalent polioviru s vaccine, live, oral [facility] poliovirus vaccine, live, oral 1985 02 complet [...] [facility]) OUTPATIENT [id number] ROSIE Campoverde 07/20 Sick at Home/Quarter s DALIA Tellez(A [facility] e [facility] P[facility]) DALIA Tellez(Academ y Neurology ) OUTPATIENT [id number] BOTOX appt CHERYL CAO 09/26 Released w/o Limitations DAILA Tellez(Acad teresa Neurolo gy) DALIA Tellez([facility]) OUTPATIENT [id number] moles on back KATTY MANNING R 10/01 Released w/o Limitations DALIA Tellez([facility]) DALIA Tellez(Academ y Neurology ) OUTPATIENT [id number] F/u Appt per Col CHERYL Mcdaniel 10/11 Released w/o Limitations DALIA Tellez(Acad teresa Neurolo gy) [facility] Zaid CEDILLO ([facility]Fam galileo Practice Non-GME FHI2) OUTPATIENT [id number] POSS BROKEN TOE LINNETTE LANDAVERDE 03/08 Released w/o Limitations [facility] Zaid CEDILLO ([facility])(F amily Practic e Non-GME FHI2) [employer] Z[employer] CEDILLO ([facility]Fam galileo Practice Non-GME FHI2) OUTPATIENT [id number] left inguina l bulge x 2 days, tender LINNETTE LANDAVERDE 07/15 Released w/o Limitations [employer] ([facility])(F amily Practic e Non-GME FHI2) [employer] ([facility])(Gen eral Surgery) OUTPATIENT [id number] hernia KELTON NIX 07/18 Released w/o Limitations [employer] ([facility])(G eneral Surgery ) [employer] Zaid B [facility]Fam galileo Practice Non-GME FHI2) [facility] CONS[facility] [id number] [facility] Hair 07/26 [employer] ([facility])(F amily Practic e Non-GME FHI2) [employer] B ([facility])(Gen eral Surgery) OUTPATIENT [id number] hernia KELTON NIX 08/22 Released w/o Limitations [employer] STONEB ([facility])(G eneral Surgery ) [facility]) OUTPATIENT [id number] AYLA Simon 09/04 Released w/o Limitations [employer] STONEB ([facility])([facility]) [facility] [employer]aid STONEB [facility] Non-GME FHI1) OUTPATIENT [id number] abdomin al pain SUSAN AMERICA P 01/08 Released w/o Limitations [facility] [employer] STONE[employer] ([facility])(F amily Practic e Non-GME FHI1) [facility] [employer] STONEB ([facility])([facility]) OUTPATIENT [id number] JEANCARLOS CANDELARIO 05/19 Released w/o Limitations [employer] ([facility])([facility]) [facility] [employer] ([facility])([facility]) OUTPATIENT [id number] [facility] Wang 05/19 Released w/o Limitations [employer] ([facility]) [facility] OUTPATIENT [id number] 07/12 Released w/o Limitations [facility] OUTPATIENT [id number] 08/28 Released w/o Limitations Theater [facility] y [address] [place] [address] [employer] CEDILLO ([facility])(Cto tt Internal Medicine Tm) OUTPATIENT [id number] well woman/P ap MDG access JASMEET MAGANA L 01/14 Released w/o Limitations [address] [place] [address] [employer] STONEB ([facility])(S cott Interna l Medicin e Tm) [address] [place] [address] [employer] STONEB ([facility])([facility] tt Internal Medicine Tm) TELE CONSULT [id number] LAB RESULTS AFTER JASMEET MAGANA 01/[address] [place] [address] [employer] STONEB ([facility])(S cott Interna l Medicin e Tm) [address] [place] [address] [employer] ST[employer] ([facility])(Fam galileo Practice Non-GME FHI1) OUTPATIENT [id number] stomach problem s LIBERTY MCCALL 01/27 Sick at Home/Quarter s [address] [place] [address] Zaid STONEB [facility]F amily Practic e Non-GME FHI1) [address] [place] [address] Zaid STONEB [facility] galileo Practice Non-GME FHI1) TELE CONSULT [id number] SILVER KAMARA 02/[address] [place] [address] Zaid STONEB [facility])(F amily Practic e Non-GME FHI1) [address] [place] [address] Zaid STONEB ([facility])([facility] galileo Practice Non-GME FHI2) OUTPATIENT [id number] dx w/herni ated c-spine disks 2 yrs ago, now c/o n/t ortega upper ext JAVED MAGALLANES 02/08 Released w/o Limitations [address] [place] [address] Zaid STONEB ([facility])(F amily Practic e Non-GME FHI2) [address] [place] [address] Zaid STONEB [facility] galileo Practice Non-GME FHI1) OUTPATIENT [id number] [facility] - Web Based Assessm ent (9) MATT TANNER 05/25 Released w/o Limitations [address] [place] [address] Zaid STONEB ([facility])(F amily Practic e Non-GME FHI1) [address] [place] [address] [employer] ([facility])(Opt ometry) OUTPATIENT [id number] conjunc tival hemorrh age left eye DASHA LUBIN 05/26 Released w/o Limitations [address] [place] [address] Zaid STONEJaswinder ([facility])(O ptometr y) [facility] Zaid CEDILLO ([facility])([facility] Practice Non-GME FHI2) OUTPATIENT [id number] abnorma l bleedin g in abd. and flank pain [phone] BRIE MCCALL 11/22 Released w/o Limitations [address] [place] [address] Zaid CHASEJaswinder ([facility])(F amily Practic e Non-GME FHI2) [address] [place] [address] Zaid CEDILLO [facility]Fam galileo Practice Non-GME FHI1) OUTPATIENT [id number] Cold Symptom s JEANCARLOS VILLEGAS Santana 12/03 Released w/o Limitations [facility] Zaid CHASEB ([facility])(F amily Practic e Non-GME FHI1) [address] [place] [address] Zaid CHASEJaswinder [facility]) OUTPATIENT [id number] [facility] [facility] TORIE ASHVIN DAVISKAYLAN Shelton 12/31 Released w/o Limitations [facility] Z[employer] CHASEJaswinder ([facility])([facility]) [address] [place] [address] Zaid CHASEJaswinder [facility]Fam galileo Med Tm B Non-AD BCC) OUTPATIENT [id number] Retirem ent physica l [phone] BRIE MCCALL 02/10 Released w/o Limitations [address] [place] [address] Zaid CHASEJaswinder [facility])(F amily Med Tm B Non-AD BCC) [address] [place] [address] Zaid NGUYEN [facility]Fam galileo Med Tm B Non-AD BCC) TELE CONSULT [id number] Rad Results BRIE MCCALL 02/[address] [place] [address] Zaid CHASEJaswinder [facility])(F amily Med Tm B Non-AD BCC) [address] [place] [address] Zaid CHASEJaswinder [facility]) DENTAL [id number] op dent #29, #30 SHERRY FOWLER M 03/02 Released w/o Limitations [address] [place] [address] Zaid CHASEJaswinder ([facility])(D ental Clinic) [address] [place] [address] Zaid CHASEJaswinder [facility])(Fam galileo Med Tm B Non-AD BCC) TELE CONSULT [id number] PCM - Dr. Mccall - WALTER Hanley 12/[address] [place] [address] Zaid CEDILLO [facility])(F amily Med Tm B Non-AD BCC) [address] [place] [address] Zaid STONEB ([facility])(Fam galileo Med Tm B Non-AD BCC) TELE CONSULT [id number] Lab Results WALTER MATHIS 01/[address] [place] [address] Zaid STONEB [facility])(F amily Med Tm B Non-AD BCC) [address] [place] [address] Zaid B ([facility])(Fam galileo Med Tm B Non-AD BCC) OUTPATIENT [id number] fu medicat ions and refills [phone] BRIE MCCALL 01/19 Released w/o Limitations [address] [place] [address] Zaid B ([facility])(F amily Med Tm B Non-AD BCC) [address] [place] [address] Zaid B [facility]Fam galileo Med Tm B Non-AD BCC) TELE CONSULT [id number] pt request refill of Ambien( msg left on DM line) Radha [phone] FELICITA PARKER 08/[address] [place] [address] Zaid STONEB [facility])(F amily Med Tm B Non-AD BCC) [address] [place] [address] Zaid [facility])(Fam galileo Med Tm B Non-AD BCC) OUTPATIENT [id number] blood in stools [phone] BRIE MCCALL 11/13 Released w/o Limitations [address] [place] [address] Zaid STONEB ([facility])(F amily Med Tm B Non-AD BCC) [address] [place] [address] Zaid [facility])(Fam galileo Med Tm B Non-AD BCC) TELE CONSULT [id number] Med refill/ Mccall/f xs WALTER MATHIS 01/[address] [place] [address] Zaid [facility])(F amily Med Tm B Non-AD BCC) [address] [place] [address] Zaid B [facility]Fam galileo Med Tm B Non-AD BCC) TELE CONSULT [id number] med refill Radha cad TIM Vasquez 08/[address] [place] [address] Zaid B [facility])(F amily Med Tm B Non-AD BCC) [address] [place] [address] Zaid B [facility]Fam galileo Med Tm B Non-AD BCC) OUTPATIENT [id number] f/u depress ion BRIE MCCALL 08/13 Released w/o Limitations [address] [place] [address] [employer] ([facility])(F amily Med Tm B Non-AD BCC) [address] [place] [address] Group Zaid STONEB ([facility])([facility] Pharm D Clinic) OUTPATIENT [id number] Smoking Cessati on DEE CONNORS 08/27 Released w/o Limitations [address] [place] [address] Zaid [facility] ([facility]I Pharm D Clinic) [address] [place] [address] Zaid STONEB [facility]Fam galileo Med Tm B Non-AD BCC) TELE CONSULT [id number] Notes Entered by: Jagdish WILLIAMSON 29 Jul 2012 0839 ------- ------- ------- ------- -- Med refill/ [facility]/jagdish ad/cls [phone] TIM FRANCISCO 07/[address] [place] [address] Zaid [facility])(F amily Med Tm B Non-AD BCC) [address] [place] [address] Zaid CHASEB [facility]Fam galileo Med Tm B Non-AD BCC) OUTPATIENT [id number] follow up zoloft medicat ion [id number] ABIGAIL MORALES 08/12 Released w/o Limitations [address] [place] [address] Zaid STONE ([facility])(F amily Med Tm B Non-AD BCC) [address] [place] [address] Zaid CHASEB [facility]Fam galileo Med Tm B Non-AD BCC) TELE CONSULT [id number] Notes Entered by: Nik MORALES 10 Sep 2012 0856 ------- ------- ------- ------- -- lab ABIGAIL MORALES 09/[address] [place] [address] Zaid CHASEJaswinder [facility])(F amily Med Tm B Non-AD BCC) [address] [place] [address] Zaid B [facility])(War rior Op Med Cln Tm A Ad) TELE CONSULT [id number] Notes Entered by: KASHMIR STARK 30 Sep 2012 1708 ------- ------- ------- ------- -- Network Results - GASTROE NTEROLO GY 09/26/12 ABIGAIL MORALES 09/[address] [place] [address] Zaid CHASEJaswinder [facility])(W arrior Op Med Cln Tm A Ad) [address] [place] [address] Zaid [facility])(Fam galileo Med Tm B Non-AD BCC) TELE CONSULT [id number] Notes Entered by: Nik MORALES 01 Oct 2012 1250 ------- ------- ------- ------- -- labs TIM FRANCISCO 10/01 43 [place] [address])(F amily Med Tm B Non-AD BCC) [address] [place] [address])(Fam galileo Med Tm B Non-AD BCC) OUTPATIENT [id number] Sleep concern s [phone] MARGARITA ZAVALA 12/24 Released w/o Limitations [address] [place] [address])(F amily Med Tm B Non-AD BCC) [address] [place] [address])(Fam galileo Med Tm B Non-AD BCC) TELE CONSULT [id number] Notes Entered by: NATALIA ORTIZ 02 Feb 2013 0732 ------- ------- ------- ------- -- Back pain, leg pain, chills, sweatin [facility] Haileyshadi TIM FRANCISCO 02/[address] [place] [address])(F amily Med Tm B Non-AD BCC) [address] [place] [address])(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) OUTPATIENT [id number] [facility] [phone] KAYLEY MUNIZ 02/15 Released w/o Limitations [address] [place] [address] Zaid [facility] ([facility]Maureen edmondsonrashad gy) [address] [place] [address] Zaid [facility])(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) TELE CONSULT [id number] Notes Entered by: KAYLEY MUNIZ 24 Feb 2014 1228 ------- ------- ------- ------- -- Embx results JEFF VALENTE 02/[address] [place] [address] Zaid [facility])(Maureen laceymariana gy) [address] [place] [address] Zaid [facility])(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 Procedure Procedure Type Code Date Perfomer Comments Sourc e No data available for this section Amb[facility] Pharmacy Endometrial Biopsy By Suction Endometrial Biopsy By Suction [id number] KAYLEY MUNIZ [facility] Test Test [id number] KAYLEY MUNIZ Screening papanicolaou smear; obtaining, preparing and conveyance of cervical or vaginal smear to laboratory KAYLEY MUNIZ Non-Physician Phone Call To Pt/Provider Intermed (11-20 min) Non-Physician Phone Call To Pt/Provider Intermed (11-20 min) [id number] TIM FRANCISCO Non-Physician Phone Call To Pt/Provider Intermed (11-20 min) Non-Physician Phone Call To Pt/Provider Intermed (11-20 min) [phone] FRANCISCOTIM Non-Physician Phone Call To Pt/Provider Intermed (11-20 min) Non-Physician Phone Call To Pt/Provider Intermed (11-20 min) [phone] TIM FRANCISCO Smoking ce ation cla es, non-physician provider, per se ion 011 DEE CONNORS Medication Management By Pharmacist Each Additional 15 Min Medication Management By Pharmacist Each Additional 15 Min [id number] [id number] DEE CONNORS Med Management By Pharmacist Initial 15 Min New Patient Med Management By Pharmacist Initial 15 Min New Patient [id number] DEE CONNORS A e ment & Intervention Tobacco Use Screening With Ce ation Counseling 011 BRIE MCCALL Non-Physician Phone Call To Pt/Provider Intermed (11-20 min) Non-Physician Phone Call To Pt/Provider Intermed (11-20 min) [phone] TIM FRANCISCO Respiratory Equip IPPB Related Nebulizer W/ Compre Respiratory Equip IPPB Related Nebulizer W/ Compress [id number] JEANCARLOS VILLEGAS Nebulizer, with compre or 009 JEANCARLOS VILLEGAS Ophthalmological New Patient Start Intermediate Level Care Ophthalmological New Patient Start Intermediate Level Care [id number] DASHA LUBIN CHEMODENERVATION OF MUSCLE(S); NECK MUSCLE(S) (EG, FOR [...] TO EXCEED A 48-HOUR DOSAGE REGIMEN 004 [facility] ENDOMETRIAL SAMPLING (BIOPSY) WITH OR WITHOUT ENDOCERVICAL SAMPLING (BIOPSY), WITHOUT CERVICAL DILATION, ANY METHOD (SEPARATE PROCEDURE) 014 [facility] SCREENING PAPANICOLAOU SMEAR; OBTAINING, PREPARING AND CONVEYANCE [...] 24H/SOON APT; 11-20 MIN MED DIS 012 [facility] SMOKING CESSATION CLASSES, NON-PHYSICIAN PROVIDER, PER SESSION 011 DoD PATIENT SCREENED FOR TOBACCO USE AND RECEIVED TOBACCO CESSATION INTERVENTION (COUNSELING, PHARMACOTHERAPY, OR BOTH), IF IDENTIFIED A TOBACCO USER (PV, CAD) 011 [facility] TELE ASSESS & MGT SRV PROV QUAL NONPHYS HLTH CARE PRO TO EST PAT,PARENT,GUARD NOT ORIG REL ASSESS & MGT SRV PROV W/IN PREV 7 DAYS NOR LEAD ASSESS & MGT SRV/PX W/IN NXT 24H/SOON APT; 11-20 MIN MED DIS 011 [facility] PRESSURIZED/NONPRESS INHAL TREAT FOR AC AIRWAY OBSTRUCT,THERAP PURPOSE &/FOR DIAG PURP SUCH SPUTUM INDUCTION W AN AEROSOL GEN,NEBULIZER,METER DOSE INHALER/INTERMIT POSIT PRESS BREATHING (IPPB) DEV 009 [facility] OPHTHALMOLOGICAL SERVICES: MEDICAL EXAMINATION AND EVALUATION WITH INITIATION OF DIAGNOSTIC AND TREATMENT PROGRAM; INTERMEDIATE, NEW PATIENT 008 [facility] SCREENING PAPANICOLAOU SMEAR; OBTAINING, PREPARING AND CONVEYANCE OF CERVICAL OR VAGINAL SMEAR TO LABORATORY 008 [facility] UNLISTED SPECIAL SERVICE, PROCEDURE OR REPORT 006 DoD OTHER BILATERAL DESTRUCTION OR OCCLUSION OF FALLOPIAN TUBES 994 DoD INJECTION OF RH IMMUNE GLOBULIN 993 [facility] REPAIR OF OTHER CURRENT OBSTETRIC LACERATION 993 DoD OTHER ARTIFICIAL RUPTURE OF MEMBRANES 993 [facility] EPISIOTOMY 991 [facility] REMOVAL OF IMPLANT; SUPERFICIAL (EG, BURIED WIRE, PIN OR JOYCE) (SEPARATE PROCEDURE) 002 [facility] REMOVAL OF IMPLANT; DEEP (EG, BURIED WIRE, PIN, SCREW, METAL BAND, NAIL, JOYCE OR PLATE) 002 DoD DRESSING CHANGE (FOR OTHER THAN BELLAMY) UNDER ANESTHESIA (OTHER THAN LOCAL) 002 DoD DRESSING CHANGE (FOR OTHER THAN BELLAMY) UNDER ANESTHESIA (OTHER THAN LOCAL) 002 [facility] CORRECTION, HALLUX VALGUS WITH BUNIONECTOMY, WITH SESAMOIDECTOMY WHEN PERFORMED; WITH DISTAL METATARSAL OSTEOTOMY, ANY METHOD 002 DoD INFUSION, NORMAL SALINE SOLUTION , 1000 CC 001 DoD Social History Combined list of available smoking, tobacco, and other social history from Department of 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 Social History Type Response Date Comment [facility] e Sex Representation Female (finding) 02/07/2023 Unknown Organization Sexual Orientation Ambula tory Pharmacy Gender identity Ambulator y Pharmacy This section is an empty social history section. [facility] Assessment and Plan Combined list of future care activities from Department of Defense and Veterans Affairs facilities (e.g., assessment and plan notes, appointments, orders, and referrals). Additional future care activities may be listed in the Plan of Care section. Result Assessment and Plan Date Source Assessment and Plan No data available for this section 05/22/2025 Ambulatory Pharmacy Functional Status Combined list of recent functional and cognitive assessments recorded at Department of Defense and Veterans Affairs (VA).VA Functional Sauk Measurement (FIM) Scale: 1 = Total Assistance (Subject = 0% +), 2 = Maximal Assistance (Subject = 25% +), 3 = Moderate Assistance (Subject = 50% +), 4 = Minimal Assistance (Subject = 75% +), 5 = Supervision, 6 = Modified Sauk (Device), 7 = Complete Sauk (Timely, Safely). Assessment Date/Time Source Assessment Type Assessment Skill Assessment Score Assessment Details No data available for this section
--- OUTSIDE RECORDS SUMMARY | 2025-05-22 10:39 | XMS_ITS | Encounter Summary ---
Author Organization [facility] Address [facility] [place] [address] Care Team Providers Care Cubing 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 Name Role Phone Jeronimo Fuchs DO Primary Care Provider + Encounter Details Date Type Department Care Team (Late st Contact Info) Description 04/29/2025 Results Follow-Up [facility] Family & Internal Medicine [facility] [address] [place] [address] Jeronimo Fuchs DO [facility] [place], [place] [id number] MG SCREENING W NANCY YOSVANY DIGI Social History Tobacco Use Types Packs/Day Years Used Date Smoking Tobacco: Former Cigarettes 1 25 0 12/18/1995 - 12/18/2020 Passive Smoke Exposure: Never Smokeless Tobacco: Never Alcohol Use Standard Drinks/Week Comments Never 0 (1 standard drink = 0.6 oz pur e alcohol) B1300 Health Literacy Answer Date Recor ded How often do you need to hav e someone help you when you read instructions, pamphlets, or other written material from your doctor or pharmacy? Never 04/24/2025 [facility] Utilities Answer Date Recorded In the past 12 months has e [employer], gas, oil, or water company threatened to shut off services in your home? No 04/24/2025 Humiliation, Afraid, Rape, and Kick questionnair e Answer Date Recorded Within the last year, have y ou been afraid of your partner or ex-partner? No 04/24/2025 Within the last year, have y ou been humiliated or emotionally abused in other ways by your partner or ex-partner? No Within the last year, have y ou been kicked, hit, slapped, or otherwise physically hurt by your partner or ex-partner? No 04/24/2025 Within the last year, have y ou been raped or forced to have any kind of sexual activity by your partner or ex-partner? No 04/24/2025 Social Connection and Isolat ion Panel [NHANES] Answer Date Recorded In a typical week, how many times do you talk on the phone with family, friends, or neighbors? More than three times a week 04/24/2025 How often do you get togethe r with friends or relatives? Three times a week 04/24/2025 How often do you attend chur or latter day services? Never 04/24/2025 Do you belong to any clubs o r organizations such as quaker groups, unions, fraternal or athletic groups, or school groups? No 04/24/2025 How often do you attend meet ings of the clubs or organizations you belong to? Never 04/24/2025 Are you , , di vorced, , never , or living with a partner? 04/24/2025 AUDIT-C Answer Date Recorded Q1: How often do you have a drink containing alcohol? Never 04/24/2025 Q2: How many drinks containi ng alcohol do you have on a typical day when you are drinking? Patient does not drink Q3: How often do you have si x or more drinks on one occasion? Never 04/24/2025 Overall Financial Resource Strain (CARDIA) Answe r Date Recorded How hard is it for you to pa y for the very basics like food, housing, medical care, and heating? Not hard at all 04/24/2025 PHQ-2 Answer Date Recorded Patient Health Questionnaire-2 Score 0 11/18/2024 [facility] of Occupat ional Health - Occupational Stress Questionnaire Answer Date Recorded Do you feel stress - tense, restless, nervous, or anxious, or unable to sleep at night because your mind is troubled all the time - these days? Only a little 04/24/2025 Exercise Vital Sign Answer Date Recorde d On average, how many days pe r week do you engage in moderate to strenuous exercise (like a brisk walk)? 3 days 04/24/2025 On average, how many minutes do you engage in exercise at this level? 30 min 04/24/2025 Hunger Vital Sign Answer Date Recorded Within the past 12 months, y ou worried that your food would run out before you got the money to buy more. Never true 04/24/20 25 Within the past 12 months, t he food you bought just didn't last and you didn't have money to get more. Never true 04/24/2025 PRAPARE - Transportation Answer Date Re corded In the past 12 months, has l ack of transportation kept you from medical appointments or from getting medications? No 02/2025 In the past 12 months, has l ack of transportation kept you from meetings, work, or from getting things needed for daily living? No 04/24/2025 Housing Stability Vital Sign Answer Talon e Recorded In the last 12 months, was t here a time when you were not able to pay the mortgage or rent on time? No 04/24/2025 In the past 12 months, how m any times have you moved where you were living? 0 04/24/2025 At any time in the past 12 m [facility], were you homeless or living in a residential (including now)? No 04/24/2025 Comments No Sex and Gender Information Value Date Recorded Sex Assigned at Female 04/24/2025 11:00 AM CDT Legal Sex Female 3:11 PM CDT Gender Identity Female 04/28/2025 10:44 AM CDT Sexual Orientation Not on file Occupation Industry Job Start Date Job End Date [employer] Not on file Not on file Not on file [employer] ( [facility] center in [place]. 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 Not on file Not on file Not on file documented as of this encounter Functional Status * Are you deaf or do you have serious difficulty hearing Answer Date of Assessment Author Status No 04/24/2025 10:00 PM CHANCET Salud Hill RN Active * Are you blind or do you have serious difficulty seeing, even when wearing glasses? Answer Date of Assessment Author Status No 04/24/2025 10:00 PM Salud Dent RN Active * Do you have serious difficulty walking or climbing stairs? Answer Date of Assessment Author Status No 04/24/2025 10:00 PM CHANCET Sal[place] Hill RN Active * Do you have difficulty dressing or bathing? Answer Date of Assessment Author Status No 04/24/2025 10:00 PM CDT Sal[place] RN Active * Because of a physical, mental, or emotional condition, do you have difficulty doing errands alone such as visiting a doctor's office or shopping? Answer Date of Assessment Author Status No 04/24/2025 10:00 PM CDT Salud Hill RN Active documented as of this encounter Mental Status * Because of a physical, mental, or emotional condition, do you have serious difficulty concentrating, remembering, or making decisions? Answer Entry Date Author Status No 04/24/2025 10:00 PM CHANCET Salud Hill RN Active documented in this encounter Plan of Treatment Upcoming Encounters Date Type Department Care Team (Late st [facility] Info) Description 07/06/2025 10:20 AM CDT Office Visit [facility] Family & Internal Medicine [facility] [address] [place] [address] Jeronimo Fuchs DO [address] [place] [id number] documented as of this encounter Goals Goal Patient Goal Type Associated Problems Recent Progress Patient-Stated? Author Health - patient able to perform ADLs independently Lifestyle No Marino Brownlee RN documented as of this encounter Visit Diagnoses Not on filedocumented in this encounter Care Teams Cubing 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 Relationship Specialty Start Date End Date Jeronimo Fuchs DO [facility] [place] [address] PCP - General FAMILY PRACTICE 07/05/22 documented as of this encounter
--- OUTSIDE RECORDS SUMMARY | 2025-05-22 10:39 | XMS_ITS | Patient Health Record ---
Author Organization [facility] [employer] Address [address] [facility] [address] [place] [address] Care Team Providers Care Psychiatric Arnp Name Role Phone Felipe Benítez Unavailable [phone] Reason For Referral No Information Medications Medication SIG (Take, Route, Frequency, Duration) Notes Start Date End Date Status Sertraline HCl 100 MG Oral Active Ketorolac Tromethamine 10 MG Oral Active Chantix 1 mg Oral Active Chantix Continuing Month Maximus 1 MG Oral Active HYDROcodone-Acetaminophen 5-325 MG Oral Active Ergocalciferol 1.25 MG (66924 UT) Oral Active Chantix Starting Month Maximus 0.5 MG X 11 & 1 MG X 42 Oral Acti ve Plan Of Treatment No Information Insurance Providers Payer Name Payer Address Payer Phone Subscriber Number Group Number Insured Name Patient Relationship to Insured Coverage Start Date Coverage End Date [facility] [address] [place] [address] [id number] DAMON ARGUELLES Self - patient is the insured
--- OUTSIDE RECORDS SUMMARY | 2025-05-22 10:40 | XMS_ITS | Referral Summary ---
Author Organization [facility] [address] [facility] Address [address] [place] [address] Care Team Providers Care Lard Renderer Name Role Phone YemibetiJeronimo durand Primary Care [...] (06/28/2023): Added automatically from request for surgery [id number] Cigarette nicotine dependence in remission 03/07 Immunizations [...] Plan of Treatment Not on file Insurance [facility] Care Teams Lard Renderer Relationship Specialty Start Date End Date Jeronimo Fuchs DO [address] [place] [id number] PCP - General Family Medicine 06/13/23
--- OUTSIDE RECORDS SUMMARY | 2025-05-22 10:40 | XMS_ITS | Clinical Summary ---
Author Organization [facility] [address] [facility] Address [address] [place] [address] Care Team Providers Care Drop Forger Name Role Phone YemibetivivianharmanJeronimo Primary Care Provide r Allergies No known [...] (06/28/2023): Added automatically from request for surgery [id number] Cigarette nicotine dependence in remission 03/07 Immunizations [...] 5 season) 2024 03/23/2021, 03/02/2021 Influenza Vaccine (#1) 2025 DTaP/Tdap/Td Vaccine (2 - Td or Tdap) 06/18/2032 06/18/2022 Pneumococcal vaccine <65 Aged Out No longer eligible based on patient's age to complete this topic Insurance [employer] Care Teams Drop Forger Relationship Specialty Start Date End Date Jeronimo Fuchs DO [address] [place] [address] [phone] PCP - General Family Medicine 06/13/23
--- OUTSIDE RECORDS SUMMARY | 2025-05-22 10:41 | XMS_ITS | Clinical Summary ---
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 Active sertraline (ZOLOFT) 100 MG tabletIndicatio ns:Adjustment disorder, unspecified type Take 1 tablet (100 mg total) by mouth daily. 30 tablet 2 5 Active pantoprazole EC (PROTONIX) 40 MG tabletIndicatio ns:Gastroesopha geal reflux disease without esophagitis Take 1 tablet (40 mg total) by mouth daily. 30 tablet 2 5 Active sertraline (ZOLOFT) 50 MG tabletIndicatio ns:Adjustment disorder, unspecified type Take 1 tablet (50 mg total) by mouth daily. 90 tablet 4 04/28/20 25 Discontinu ed(Dose adjustment ) amoxicillin (AMOXIL) 500 MG capsule Take 1 capsule (500 mg total) by mouth 4 (four) times daily. For 7 days beginning on 04/20/25 04/26/20 25 Discontinu ed(Stop Taking at Discharge) pantoprazole EC (PROTONIX) 40 MG tablet Take 1 tablet (40 mg total) by mouth daily for 30 days. 30 tablet 04/28/20 25 Discontinu ed(Reorder ) Active Problems Problem Noted Date Diagnosed Date Chest pain 04/24/2025 Personal history of colonic polyps 01/09/2024 Melena 01/09/2024 Rectal polyp 07/03/2023 Screening for colon cancer 06/04/2023 Overview (06/04/2023): Added automatically from request for surgery [id number] Cigarette nicotine dependence in remission 03/07 BMI 20.0-20.9, adult 03/07/2021 Resolved Problems Problem Noted Date Diagnosed Date Resolved Date Melena 06/04/2023 11/04/2023 Overview (06/04/2023): Added automatically from request for surgery [id number] Encounters Date Type Department Care Team Description 05/12/2025 11:25 AM CDT - 05/12/2025 11:59 PM CDT Hospital Encounter [facility] [address] [place] [address] Rossana Pettit, DO Discharge Disposition: Home or Self Care (Routine Discharge) 05/12/2025 Travel 04/29/2025 Results Follow-Up [facility] [address] [phone] Rossana Pettit, DO MG SCREENING W NANCY YOSVANY DIGI 04/28/2025 10:40 AM CDT Office Visit [facility] [address] [phone] Rossana Pettit, DO TCM (Patient was admitted for chest and abd pain at [facility]. The patient states she is not having any pain at this time. ) 04/28/2025 Travel 04/27/2025 Telephone [facility] [address] [phone] Rossana Pettit, DO TCM 04/24/2025 11:22 AM CDT - 04/26/2025 12:18 PM CDT Hospital Encounter [facility] [address] [facility] [place] [address] Aung Stark NP Duenas, Vincent J, MD Weakness Discharge Disposition: Home or Self Care (Routine Discharge) 04/24/2025 Travel 04/22/2025 10:39 AM CDT - 04/22/2025 11:59 PM CDT Hospital Encounter [facility] [address] [facility] [place] [address] Rossana Pettit, DO Discharge Disposition: Home or Self Care (Routine Discharge) 04/22/2025 Travel 03/20/2025 Scan [facility] INFO SRVCS Scanned, [facility] from Last 3 Months Immunizations Immunization Administration Dates Next Due PFIZER COVID-19 (ORIGINAL FO RMULATION, PURPLE CAP) mRNA, LNP-S, PF, 30 MCG/0.3 ML DOSE 03/23/2021,03/02/2021 Tdap (Adacel) 06/18/2022 Family History Medical History Relation Comments Cancer Brother Hodgkin s lymphoma None Daughter Cancer Mother Bcell lymphoma Cancer Sister Small cell lung CA Valve Disease Sister aortic valve rep lacement, bicuspid None Son Breast Cancer Neg Hx Relation Status Comments Brother Alive Daughter Alive Father Alive Maternal Grandfather Maternal Grandmother Mother (Age 70) Paternal Grandfather Paternal Grandmother Sister (Age 47) Son Alive Social History Tobacco Use Types Packs/Day Years Used Date Smoking Tobacco: Former Cigarettes 1 25 0 12/18/1995 - 12/18/2020 Passive Smoke Exposure: Never Smokeless Tobacco: Never Tobacco Cessation:Counseling Given: Yes Alcohol Use Standard Drinks/Week Comments Never 0 (1 standard drink = 0.6 oz pur e alcohol) B1300 Health Literacy Answer Date Recor ded How often do you need to hav e someone help you when you read instructions, pamphlets, or other written material from your doctor or pharmacy? Never 04/24/[address] [facility] Utilities Answer Date Recorded In the past 12 months has [facility] SpecifiedBy, oil, or water [employer] threatened to shut off services in your [...] How often do you attend chur or hoahaoism services? Never 04/24/2025 Do you belong to any clubs o r organizations such as mormonism groups, unions, fraternal or athletic groups, or [...] Recorded Patient Health Questionnaire-2 Score 0 11/18/2024 [facility] of Occupat ional Health - Occupational Stress [...] any time in the past 12 m [facility], were you homeless or living in a correction (including now)? 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 Not on file Not on file Not on file Last Filed Vital Signs Vital Sign Reading Time Taken Comments Blood Pressure 116/64 04/28/2025 10:44 AM CDT Pulse 61 04/28/2025 10:44 AM CDT Temperature 36.9 C (98.4 F) 04/28/2025 10:44 AM CDT Respiratory Rate 16 04/28/2025 10:4 4 AM CDT Oxygen Saturation 98% 04/28/2025 10: 44 AM CDT Inhaled Oxygen Concentration - - Weight 52.6 kg (115 lb 14.4 oz) 025 10:44 AM CDT Height 157.5 cm (5' 2) 04/28/2025 10:4 4 AM CDT Body Mass Index 21.2 04/28/2025 10:44 AM CDT Plan of Treatment Upcoming Encounters Date Type Department Care Team (Late st Contact Info) Description 07/06/2025 10:20 AM CDT Office Visit [facility] [id number] [place] [phone] Rossana Pettit, [address] [place] [address] [phone] Health Maintenance Due Date Last Done Comments ASCVD Statin 1965 Cervical Cancer Screening Pap Smear (Age 30 to 64) Every 3 Years 06/16/2023 06/16/2020 Annual Physical 06/18/2023 06/18/2022, 01/20, 06/08/2020 Lung Cancer Screening 07/25/2023 07/25/2022 RSV Immunization or 60+ Years (1 - Risk 60-74 years 1-dose series) 2024 Cervical Cancer Screening Pap with HPV Testing (Age 30 to 64) Every 5 Years 06/16/2025 06/16/2020 Cervical Cancer Screening with HPV 06/16/2025 COVID-19 Vaccine ( season) 2025 03/23/2021, 03/02/2021, 03/02/2021 Postponed from 06/21/2024 (Patient Refused) Zoster Vaccines (1 of 2) 11/18/2025 Pos tponed from 2014 (Going to Outside Clinic) Mammogram Screening 04/22/2026 04/22/2025, 02/25/2024, 11/05/2019 Pneumococcal Vaccine: 50+ Years (1 of 2 - PCV) 04/28/2026 Postponed from 12/21/1983 (Patient Refused) Colorectal Cancer Screening Colonoscopy (10 Years) 05/25/2029 05/25/2024, 05/25/2024, 06/07/2023 DTaP, Tdap and Td Vaccines (3 - Td or Tdap) 06/18/2032 06/18/2022, 11/05/2007, 10/17/2005, Additional history exists Meningococcal Vaccine Aged Out 12/23/1996 No celine teresa eligible based on patient's age to complete this topic Hepatitis C Completed 06/16/2020 PHQ-2 (Physician [place]) Completed 11/18/2024 Meningococcal B Vaccine Aged Out No l onger eligible based on patient's age to complete this topic RSV Immunizations Under 20 Months Aged Out No longer eligible based on patient's age to complete this topic Goals Goal Patient Goal Type Associated Problems Recent Progress Patient-Stated? 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 Procedure Name Priority Date/Time Associated Diagnosis Comments MRI ABD WWO CON Routine 05/12/2025 12:42 PM CDT Pancreatic cyst (HHS/HCC) Adrenal nodule (HHS/HCC) Renal cyst NM EXER NUC STRESS TEST 1 DAY W TRACING Routine 04/26/2025 8:47 AM CDT USE ECHOCARDIOGRAM Today 04/26/2025 7: 56 AM CDT CARDIOLOGY STRESS TEST ONLY, EXERCISE Routine 04/26/2025 6:54 AM CDT BASIC METABOLIC PANEL Routine 04/26/2025 5:20 AM CDT CBC W/DIFF AUTOMATED Routine 04/26/2025 5:20 AM CDT MAGNESIUM Routine 04/25/2025 4:20 AM CDT LIPID PANEL Routine 04/25/2025 4:20 AM CDT THYROID STIM HORMONE TSH Routine 04/25/2025 4:20 AM CDT TROPONIN, QUANT TIMED 04/25/2025 4:20 AM CDT HEMOGLOBIN, GLYCOSYLATED Routine 04/25/2025 4:20 AM CDT BASIC METABOLIC PANEL Routine 04/25/2025 4:20 AM CDT CBC W/DIFF AUTOMATED Routine 04/25/2025 4:20 AM CDT TROPONIN, QUANT TIMED 04/24/2025 10:20 PM CDT TROPONIN, QUANT STAT 04/24/2025 1:21 PM CDT ECG 12-LEAD Routine 04/24/2025 1:15 PM CDT XR CHEST PORTABLE STAT 04/24/2025 12: [address] ABD+PEL W CON STAT 04/24/2025 12:1 2 PM CDT ECG 12-LEAD Routine 04/24/2025 11:33 AM CDT CORONAVIRUS (COVID 19) STAT 11:29 AM CDT MAGNESIUM STAT 04/24/2025 11:28 AM CDT TROPONIN, QUANT STAT 04/24/2025 11:28 AM CDT LIPASE STAT 04/24/2025 11:28 AM CDT COMPREHENSIVE METABOLIC PANEL STAT 04/24/2025 11:28 AM CDT CBC W/DIFF AUTOMATED STAT 04/24/2025 11:28 AM CDT MG SCREENING W NANCY YOSVANY DIGI Routine 04/22/2025 11:26 AM CDT Screening mammogram for breast cancer COLONOSCOPY Routine 05/25/2024 8:[address] LUNG SCREENING Routine 07/25/2022 12: 42 PM CDT Cigarette nicotine dependence in remission HUMAN PAPILLOMAVIRUS, HIGH-RISK TYPES Routine 06/16/2020 10:53 AM CDT CYTOPATH CERV/VAG THIN LAYER Routine 06/16/2020 10:53 AM CDT Encounter for well woman exam with routine gynecological exam from Last 3 Months or Most Recently Relevant to Health Maintenance Results * MRI ABD WWO CON (05/12/2025 12:42 PM CDT) Anatomical Region Laterality Modality Abdomen Magnetic Resonan ce 05/19/2025 8:54 AM CDT Impressions 05/19/2025 9:01 AM CDT Impression: 1. 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 No suspicious features. Follow-up recommended in 1 year per ACR consensus guidelines to ensure stability. 2. Simple appearing hepatic and renal cysts. No specific follow-up is required. 3. Left adrenal adenoma. No specific follow-up is required. Ordered By: ROSSANA PETTIT Interpreted By: Sanjiv Plasencia MD, 05/19/2025 8:54 AM Narrative 05/19/2025 9:01 AM CDT [facility] [address] [facility] [place] [address] Procedure: MRI Abdomen with and without contrast Indication: Follow up on pancreatic cyst, adrenal nodule, and kidney cyst Comparison: CT abdomen pelvis 04/24/2025. Technique: Precontrast and dynamic postcontrast MR imaging of the abdomen was performed IV contrast was administered to improve disease detection and further define anatomy. Findings: - Lower Thorax: No suspicious pulmonary abnormalities. No pleural or pericardial effusions. - Liver: Normal in morphology and enhancement. Multiple simple appearing T2 hyperintense cysts within the liver. No specific follow-up is required. No suspicious hepatic masses are identified. The portal and hepatic veins are patent. - Biliary and Gallbladder: No intrahepatic or extrahepatic bile duct dilatation. The gallbladder is unremarkable. - Spleen: Normal in appearance. - Pancreas: There is a cystic lesion in the pancreatic head identified measuring 1.0 cm on series 3 image 23. There are 1-2 thin internal septations suggesting minimally complicated cyst. No suspicious enhancement or pancreatic ductal dilatation. 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 - Adrenal Glands: Left adrenal nodule measuring up to 1.3 cm on series 11 image 29. There is suggestion of signal dropout is seen on out of phase imaging (series 4 image 13), suggesting intra-voxel fat and adenoma. - Kidneys: Symmetric in size and enhancement. Small T2 hyperintense renal cysts for which no specific follow-up is required. No suspicious renal lesions. No hydronephrosis. - Abdominal Vasculature: No abdominal aortic aneurysm. - Gastrointestinal Tract: No abnormal dilation or wall thickening. - Peritoneum/Mesentery/Retroperitoneum: No free fluid. - Lymph Nodes: No retroperitoneal or mesenteric lymphadenopathy. - Body Wall: Unremarkable. - Musculoskeletal: No aggressive appearing osseous lesions. Procedure Note Sanjiv Plasencia MD - 05/19/2025 [facility] [address] [place] [address] Procedure: MRI Abdomen with and without contrast Indication: Follow up on pancreatic cyst, adrenal nodule, and kidney cyst Comparison: CT abdomen pelvis 04/24/2025. Technique: Precontrast and dynamic postcontrast MR imaging of the abdomenwas performed IV contrast was administered to improve disease detectionand further define anatomy. Findings: - Lower Thorax: No suspicious pulmonary abnormalities. No pleural orpericardial effusions. - Liver: Normal in morphology and enhancement. Multiple simple appearingT2 hyperintense cysts within the liver. No specific follow-up is required.No suspicious hepatic masses are identified. The portal and hepatic veinsare patent. - Biliary and Gallbladder: No intrahepatic or extrahepatic bile ductdilatation. The gallbladder is unremarkable. - Spleen: Normal in appearance. - Pancreas: There is a cystic lesion in the pancreatic head identifiedmeasuring 1.0 cm on series 3 image 23. There are 1-2 thin internalseptations suggesting minimally complicated cyst. No suspiciousenhancement or pancreatic ductal dilatation. Findings favored to reflect asmall sidebranch IPMN. - Adrenal Glands: Left adrenal nodule measuring up to 1.3 cm on series 11image 29. There is suggestion of signal dropout is seen on out of phaseimaging (series 4 image 13), suggesting intra-voxel fat and adenoma. - Kidneys: Symmetric in size and enhancement. Small T2 hyperintense renalcysts for which no specific follow-up is required. No suspicious renallesions. No hydronephrosis. - Abdominal Vasculature: No abdominal aortic aneurysm. - Gastrointestinal Tract: No abnormal dilation or wall thickening. - Peritoneum/Mesentery/Retroperitoneum: No free fluid. - Lymph Nodes: No retroperitoneal or mesenteric lymphadenopathy. - Body Wall: Unremarkable. - Musculoskeletal: No aggressive appearing osseous lesions. Impression: 1. Minimally complicated cystic lesion in the pancreatic head measuring1.0 cm, most likely reflecting a small sidebranch IPMN. No suspiciousfeatures. Follow-up recommended in 1 year per ACR consensus guidelines toensure stability. 2. Simple appearing hepatic and renal cysts. No specific follow-up isrequired. 3. Left adrenal adenoma. No specific follow-up is required. Ordered By: ROSSANA PETTIT Interpreted By: Sanjiv Plasencia MD, 05/19/2025 8:54 AM us Rossana Pettit DO MRI Final Re sult * NM EXER NUC STRESS TEST 1 DAY W TRACING (04/26/2025 8:47 AM CDT) Anatomical Region Laterality Modality Cardiac Nuclear Medicine 04/26/2025 8:09 AM CDT Narrative 04/26/2025 9:59 AM CDT Myocardial Perfusion Imaging Pat.Name: DAMON KIM Pat.ID: [id number] St.Date: 04/26/2025 Refer.MD: Nannette Charles [id number] Exam Time: 8:09:00 AM Study Type:ASHANTI NC HT MUSCLE IMAGE SPECT MULTI Height: 62 in Weight: 115 lb BSA: 1.51 m2 Age: 3 1965,59Y Sex: F Sonogrphr: LM Renteria Pat. Stat.:Inpatient Room: CDU 5 Reason for Study:Chest pain, Dizziness, Left arm pain History / Clinical:Ex-Smoker, GERD Procedures: Nuclear Stress Test with Exercise Surgery: Echocardiogram, Event Monitor ++++++++++++++++++++++++++++++++++++ SUMMARY: ++++++++++++++++++++++++++++++++++++ Stress conclusion: 1. Clinically positive for shortness of breath and leg fatigue. 2. Electrocardiographically negative treadmill test for ischemia. Stress ECG showed rare VPCs and APCs. 3. Excellent exercise capacity. 4. Ornelas Treadmill Score is 10, which indicates low risk. 5. Blood pressure response was normal. 6. Scintigraphic images to follow. Perfusion conclusion: 1. Excellent study quality. Stress motion correction was applied to images. No attenuation is noted. Prone imaging was performed. 2. Normal myocardial perfusion SPECT imaging. 3. Normal wall motion with an ejection fraction of 81%. 4. Stress test with myocardial perfusion imaging shows overall low risk for a cardiac event. ++++++++++++++++++++++++++++++++++++ FINDINGS: ++++++++++++++++++++++++++++++++++++ Protocol: The images were processed using the standard SPECT technique. A gated study was performed on the stress images. Impression: SPECT images demonstrate normal perfusion of normal intensity. Heart Size: The left ventricle is normal. LV Wall Motion: The LVEF is calculated to be 81%. Transient Ischemic Dilatation: The TID is 0.69. There is no evidence of Transient Ischemic Dilatation. ++++++++++++++++++++++++++++++++++++ STRESS: ++++++++++++++++++++++++++++++++++++ Baseline Vital Signs: ECG: Normal sinus rhythm HR: 78 bmp Rest BP: 111/75 Treadmill Test Protocol: Shubham Duration: 10:00 min:sec Max. Workload (METS): 12.1 Stress Test Results: Max HR: 140 bmp Target HR: 160 bmp % Target: 88 % Max BP: 160/92 Max RPP: 34992 O2 sat: 99 % Symptoms and Complications: Terminated: Attainment of adequate heart rate, Shortness of breath Symptoms: Shortness of breath Complications: None Stress ECG Interp: Sinus tachycardia, VPCs/ APCs <Electronic Signature> 04/26/2025 09:59 AM Nannette Charles M.D. Procedure Note Nannette Charles MD - 04/26/2025 Myocardial Perfusion Imaging Pat.Name: JULIO FAMILIABRANDON [place] Pat.ID: [id number] .Date: 04/26/2025 Refer.MD: Nannette Charles [id number] Exam Time: 8:09:00 AM Study Type:ASHANTI NC HT MUSCLE IMAGE SPECT MULTI Height: 62 in Weight: 115 lb BSA: 1.51 m2 Age: 2 1965,59Y Sex: F Sonogrphr: LM Renteria Pat. Stat.:Inpatient Room: CDU 5 Reason for Study:Chest pain, Dizziness, Left arm pain History / Clinical:Ex-Smoker, GERD Procedures: Nuclear Stress Test with Exercise Surgery: Echocardiogram, Event Monitor ++++++++++++++++++++++++++++++++++++ SUMMARY: ++++++++++++++++++++++++++++++++++++ Stress conclusion: 1. Clinically positive for shortness of breath and leg fatigue. 2. Electrocardiographically negative treadmill test for ischemia. Stress ECG showed rare VPCs and APCs. 3. Excellent exercise capacity. 4. Ornelas Treadmill Score is 10, which indicates low risk. 5. Blood pressure response was normal. 6. Scintigraphic images to follow. Perfusion conclusion: 1. Excellent study quality. Stress motion correction was applied to images. No attenuation is noted. Prone imaging was performed. 2. Normal myocardial perfusion SPECT imaging. 3. Normal wall motion with an ejection fraction of 81%. 4. Stress test with myocardial perfusion imaging shows overall low risk for a cardiac event. ++++++++++++++++++++++++++++++++++++ FINDINGS: ++++++++++++++++++++++++++++++++++++ Protocol: The images were processed using the standard SPECT technique. A gated study was performed on the stress images. Impression: SPECT images demonstrate normal perfusion of normal intensity. Heart Size: The left ventricle is normal. LV Wall Motion: The LVEF is calculated to be 81%. Transient Ischemic Dilatation: The TID is 0.69. There is no evidence of Transient Ischemic Dilatation. ++++++++++++++++++++++++++++++++++++ STRESS: ++++++++++++++++++++++++++++++++++++ Baseline Vital Signs: ECG: Normal sinus rhythm HR: 78 bmp Rest BP: 111/75 Treadmill Test Protocol: Shubham Duration: 10:00 min:sec Max. Workload (METS): 12.1 Stress Test Results: Max HR: 140 bmp Target HR: 160 bmp % Target: 88 % Max BP: 160/92 Max RPP: 29948 O2 sat: 99 % Symptoms and Complications: Terminated: Attainment of adequate heart rate, Shortness of breath Symptoms: Shortness of breath Complications: None Stress ECG Interp: Sinus tachycardia, VPCs/ APCs <Electronic Signature> 04/26/2025 09:59 AM Nannette Charles M.D. Nannette Charles MD NUC MED Final Result * USE ECHOCARDIOGRAM (04/26/2025 7:56 AM CDT) Anatomical Region Laterality Modality Cardiac Echocardiogram 04/26/2025 7:22 AM CDT Narrative 04/26/2025 9:51 AM CDT Echocardiography Report Pat.Name: KAL KIMJUSTINE [place] Pat.ID: [id number] St.Date: 04/26/2025 Refer.MD: OWEN MUJICA Exam Time: 7:22:00 AM Study Type:ECHO WITH CARDIAC DOPPLER COMP Height: 61.8 in Weight: 115 lb BSA: 1.51 m2 Age: 3 1965,59Y Sex: F BP: 104/65 HR: 61 bpm Sonogrphr: Ruba Chanel Pat. Stat.:Inpatient Room: [id number] Reason for Study:Chest pain Procedures: 2D, M-mode, Doppler, Color Flow, The study quality is technically fair. Race: W ++++++++++++++++++++++++++++++++++++ SUMMARY: ++++++++++++++++++++++++++++++++++++ The left ventricular systolic function is normal. Estimated left ventricular ejection fraction is 60-65%. Left ventricular diastolic function is normal. Wall motion appears normal in all segments. Mild tricuspid regurgitation. ++++++++++++++++++++++++++++++++++++ FINDINGS: ++++++++++++++++++++++++++++++++++++ LV: The left ventricular size is normal. The left ventricular systolic function is normal. Estimated left ventricular ejection fraction is 60-65%. There is no left ventricular hypertrophy. Left ventricular diastolic function is normal. The LV Strain is -21.6%, normal. WM: Wall motion appears normal in all segments. RV: The right ventricular size is normal. Right ventricular systolic function is normal. IVS: No evidence of ventricular septal defect. LA: The left atrial volume is normal ( less than 34 ml/M2). RA: Right atrial size is normal. IAS: Atrial septum appears intact. ELI: No evidence of pericardial effusion. AO: Aorta is normal. PA: Estimated right atrial pressure of 3 mmHg. SVn: Systemic veins are normal. AV: The aortic valve is trileaflet. No evidence of aortic valve stenosis. No evidence of aortic valve regurgitation. MV: Structurally normal mitral valve. Trace mitral regurgitation. No evidence of mitral stenosis. PV: Trace pulmonic regurgitation. No evidence of pulmonic valve stenosis. Pulmonic valve not well visualized. TV: Structurally normal tricuspid valve. Mild tricuspid regurgitation. Right ventricular systolic pressure is 20-30 mmHg. No evidence of tricuspid valve stenosis. ++++++++++++++++++++++++++++++++++++ MEASUREMENTS: ++++++++++++++++++++++++++++++++++++ DOPPLER LVOT LVOTpkPG 3.8 mmHg LVOT SV 57.1 ml LVOT TVI 19.9 cm PSV 97 cm/s LVOTmnPG 1.6 mmHg Pulmonary Veins PVnpkVels 102 cm/s AV Forward Flow AV TVI 22.6 cm AV pkPG 6.1 mmHg AV pkVel 123 cm/s (100-170) Area (TVI) 2.53 cm2 (3-5)* AV mnPG 3.3 mmHg Area (Edis) 2.26 cm2 (3-5)* MV Forward Flow MV pkE 53 cm/s (60-130)* MV pkA 54 cm/s PV Forward Flow PV TVI 25.1 cm PV mnPG 3.3 mmHg PV pkVel 133 cm/s (60-90)* PV AC 123 msec PV pkPG 7.1 mmHg TV Regurg Flow TV pkPG 20.8 mmHg TV pkVel 228 cm/s (30-70)* Lat E' Lat e 7.64 cm/s Lat E/E' Lat E/e 6.93 Med E' Med e 6.08 cm/s Med E/E' Med E/e 8.72 AV Antegrade Flow AV AC/ET 0.22 Ratio of LVOT M 0.79 AC 54 millisecond Ratio of LVOT V 0.883 AV ET 241 millisecond Left Atrium CO 1.7 l/min CO 1.3 l/min Left Atrial Eje 48 % Left Atrial Eje 65.3 % [place] (End 3.9 cm [place] (End 3.8 cm Left Atrial ED 17.8 ml/m2 Left Atrial ED 7.2 ml/m2 [place] (End 5.2 cm [place] (End 5.7 cm Left Atrial ES 34.3 ml/m2 Left Atrial ES 20.8 ml/m2 Global Longitud 30.7 % Global Longitud 46.7 % HR 68 bpm HR 64 bpm SV 16.5 ml/m2 SV 13.5 ml/m2 LA Biplane CO 1.7 l/min Left Atrial ES 27.9 ml/m2 Left Atrial Eje 59.4 % Global Longitud 38.7 % [place] (End 3.9 cm HR 68 bpm Left Atrial ED 11.4 ml/m2 SV 16.6 ml/m2 [place] (End 5.7 cm Left Ventricle Left Ventricula 110 mmHg SV 35 ml/m2 MV Pk Edis to LV 7.73 CO 2.8 l/min CO 3.6 l/min LVEF 63.8 % LVEF 68.4 % Left Ventricle 7.3 cm Left Ventricle 7.6 cm LVEDV 49.1 ml/m2 LVEDV 51.1 ml/m2 Left Ventricle 5.8 cm Left Ventricle 6.3 cm LVESV 17.8 ml/m2 LVESV 16.1 ml/m2 Global Longitud -24.1 % Global Longitud -21.5 % HR 59 bpm HR 69 bpm LV Mass 63 g/m2 LV Mass 61.5 g/m2 SV 31.3 ml/m2 LV Biplane CO 3.1 l/min LVESV 19.8 ml/m2 LVEF 60.6 % Global Longitud -21.6 % Left Ventricle 7.6 cm HR 69 bpm LVEDV 50.2 ml/m2 LV Mass 61.7 g/m2 Left Ventricle 6.3 cm SV 30.5 ml/m2 LV Triplane Global Longitud -22.8 % Med MA LV Pk Sys Tissu 8.04 centimeters per second MV Antegrade Flow Mitral Valve A 1.02 MV E Decel time 293 millisecond MV E/A 0.98 Pulmonic Valve PV ET 300 millisecond PV Antegrade Flow PV AT/ET 0.41 Acceleration Sl 342 cm/s2 Right Atrium CO 0.9 l/min Volume (Systole 18.2 ml/m2 Cardiac ejectio 49 % Global Longitud 51.3 % Major [place] (End 3.1 cm HR 64 bpm Volume (Diastol 9.3 ml/m2 SV 9 ml/m2 Major [place] (End 5.2 cm Right Ventricle Right Ventricul 11.7 centimeters per second 2D LVPW LVPWd 0.78 cm Left Atrium LA a-p 3.17 cm (2.8-3.4) Diameter (Systo 2.1 cm/m2 End Diastolic A 0.91 Ratios IVS Ventricular Septum IVSd 0.86 cm Left Ventricle LVIDd 4.32 cm (4.3-5.1) LV Mass 110 gram LVIDs 2.45 cm (2-4) Left Ventricle 0.36 Aorta Ascending Aorti 3.33 cm AO Dd 1.91 cm LVOT Cardiovascular 2.87 cm2 Cardiovascular 1.91 cm Right Ventricle Major [place] (Tamela 6.35 cm RVIDd 2.27 cm MMODE Tricuspid Valve Tricuspid annul 2.14 cm <Electronic Signature> 04/26/2025 09:51 AM Nannette Charles M.D. Procedure Note Nannette Charles MD - 04/26/2025 Echocardiography Report Pat.Name: DAMON KIM Pat.ID: [id number] .Date: 04/26/2025 Refer.MD: OWEN MUJICA Exam Time: 7:22:00 AM Study Type:ECHO WITH CARDIAC DOPPLER COMP Height: 61.8 in Weight: 115 lb BSA: 1.51 m2 Age: 3 1965,59Y Sex: F BP: 104/65 HR: 61 bpm Sonogrphr: Ruba Chanel Pat. Stat.:Inpatient Room: [id number] Reason for Study:Chest pain Procedures: 2D, M-mode, Doppler, Color Flow, The study quality is technically fair. Race: W ++++++++++++++++++++++++++++++++++++ SUMMARY: ++++++++++++++++++++++++++++++++++++ The left ventricular systolic function is normal. Estimated left ventricular ejection fraction is 60-65%. Left ventricular diastolic function is normal. Wall motion appears normal in all segments. Mild tricuspid regurgitation. ++++++++++++++++++++++++++++++++++++ FINDINGS: ++++++++++++++++++++++++++++++++++++ LV: The left ventricular size is normal. The left ventricular systolic function is normal. Estimated left ventricular ejection fraction is 60-65%. There is no left ventricular hypertrophy. Left ventricular diastolic function is normal. The LV Strain is -21.6%, normal. WM: Wall motion appears normal in all segments. RV: The right ventricular size is normal. Right ventricular systolic function is normal. IVS: No evidence of ventricular septal defect. LA: The left atrial volume is normal ( less than 34 ml/M2). RA: Right atrial size is normal. IAS: Atrial septum appears intact. ELI: No evidence of pericardial effusion. AO: Aorta is normal. PA: Estimated right atrial pressure of 3 mmHg. SVn: Systemic veins are normal. AV: The aortic valve is trileaflet. No evidence of aortic valve stenosis. No evidence of aortic valve regurgitation. MV: Structurally normal mitral valve. Trace mitral regurgitation. No evidence of mitral stenosis. PV: Trace pulmonic regurgitation. No evidence of pulmonic valve stenosis. Pulmonic valve not well visualized. TV: Structurally normal tricuspid valve. Mild tricuspid regurgitation. Right ventricular systolic pressure is 20-30 mmHg. No evidence of tricuspid valve stenosis. ++++++++++++++++++++++++++++++++++++ MEASUREMENTS: ++++++++++++++++++++++++++++++++++++ DOPPLER LVOT LVOTpkPG 3.8 mmHg LVOT SV 57.1 ml LVOT TVI 19.9 cm PSV 97 cm/s LVOTmnPG 1.6 mmHg Pulmonary Veins PVnpkVels 102 cm/s AV Forward Flow AV TVI 22.6 cm AV pkPG 6.1 mmHg AV pkVel 123 cm/s (100-170) Area (TVI) 2.53 cm2 (3-5)* AV mnPG 3.3 mmHg Area (Edis) 2.26 cm2 (3-5)* MV Forward Flow MV pkE 53 cm/s (60-130)* MV pkA 54 cm/s PV Forward Flow PV TVI 25.1 cm PV mnPG 3.3 mmHg PV pkVel 133 cm/s (60-90)* PV AC 123 msec PV pkPG 7.1 mmHg TV Regurg Flow TV pkPG 20.8 mmHg TV pkVel 228 cm/s (30-70)* Lat E' Lat e 7.64 cm/s Lat E/E' Lat E/e 6.93 Med E' Med e 6.08 cm/s Med E/E' Med E/e 8.72 AV Antegrade Flow AV AC/ET 0.22 Ratio of LVOT M 0.79 AC 54 millisecond Ratio of LVOT V 0.883 AV ET 241 millisecond Left Atrium CO 1.7 l/min CO 1.3 l/min Left Atrial Eje 48 % Left Atrial Eje 65.3 % Major [place] (End 3.9 cm Major [place] (End 3.8 cm Left Atrial ED 17.8 ml/m2 Left Atrial ED 7.2 ml/m2 Major [place] (End 5.2 cm [place] (End 5.7 cm Left Atrial ES 34.3 ml/m2 Left Atrial ES 20.8 ml/m2 Global Longitud 30.7 % Global Longitud 46.7 % HR 68 bpm HR 64 bpm SV 16.5 ml/m2 SV 13.5 ml/m2 LA Biplane CO 1.7 l/min Left Atrial ES 27.9 ml/m2 Left Atrial Eje 59.4 % Global Longitud 38.7 % Major [place] (End 3.9 cm HR 68 bpm Left Atrial ED 11.4 ml/m2 SV 16.6 ml/m2 Major [place] (End 5.7 cm Left Ventricle Left Ventricula 110 mmHg SV 35 ml/m2 MV Pk Edis to LV 7.73 CO 2.8 l/min CO 3.6 l/min LVEF 63.8 % LVEF 68.4 % Left Ventricle 7.3 cm Left Ventricle 7.6 cm LVEDV 49.1 ml/m2 LVEDV 51.1 ml/m2 Left Ventricle 5.8 cm Left Ventricle 6.3 cm LVESV 17.8 ml/m2 LVESV 16.1 ml/m2 Global Longitud -24.1 % Global Longitud -21.5 % HR 59 bpm HR 69 bpm LV Mass 63 g/m2 LV Mass 61.5 g/m2 SV 31.3 ml/m2 LV Biplane CO 3.1 l/min LVESV 19.8 ml/m2 LVEF 60.6 % Global Longitud -21.6 % Left Ventricle 7.6 cm HR 69 bpm LVEDV 50.2 ml/m2 LV Mass 61.7 g/m2 Left Ventricle 6.3 cm SV 30.5 ml/m2 LV Triplane Global Longitud -22.8 % Med MA LV Pk Sys Tissu 8.04 centimeters per second MV Antegrade Flow Mitral Valve A 1.02 MV E Decel time 293 millisecond MV E/A 0.98 Pulmonic Valve PV ET 300 millisecond PV Antegrade Flow PV AT/ET 0.41 Acceleration Sl 342 cm/s2 Right Atrium CO 0.9 l/min Volume (Systole 18.2 ml/m2 Cardiac ejectio 49 % Global Longitud 51.3 % [place] (End 3.1 cm HR 64 bpm Volume (Diastol 9.3 ml/m2 SV 9 ml/m2 [place] (End 5.2 cm Right Ventricle Right Ventricul 11.7 centimeters per second 2D LVPW LVPWd 0.78 cm Left Atrium LA a-p 3.17 cm (2.8-3.4) Diameter (Systo 2.1 cm/m2 End Diastolic A 0.91 Ratios IVS Ventricular Septum IVSd 0.86 cm Left Ventricle LVIDd 4.32 cm (4.3-5.1) LV Mass 110 gram LVIDs 2.45 cm (2-4) Left Ventricle 0.36 Aorta Ascending Aorti 3.33 cm AO Dd 1.91 cm LVOT Cardiovascular 2.87 cm2 Cardiovascular 1.91 cm Right Ventricle Major [place] (Tamela 6.35 cm RVIDd 2.27 cm MMODE Tricuspid Valve Tricuspid annul 2.14 cm <Electronic Signature> 04/26/2025 09:51 AM Nannette Charles M.D. Owen Mujica MD ECHO Final Result * (ABNORMAL) BASIC METABOLIC PANEL (04/26/2025 5:20 AM CDT) Only the most recent of2 resultswithin the time period is included. GLUCOSE 91 70 - 99 MG/DL 04/26/2025 6:04 AM CDT [facility] BUN 15 7 - 18 MG/DL 04/26/2025 6:04 AM CDT [facility] CREATININE S/P/B 0.59 0.55 - 1.02 MG/DL 04/26/2025 6:04 AM CDT [facility] SODIUM S/P/B 135(L) 136 - 145 MMOL/L 04/26/2025 6:04 AM CDT [facility] POTASSIUM S/P/B 4.3 3.5 - 5.1 MMOL/L 04/26/2025 6:04 AM CDT [facility] Comment:SLIGHT HEMOLYSIS, RE SULT MAY BE AFFECTED. CHLORIDE S/P/B 107 97 - 115 MMOL/L 04/26/2025 6:04 AM CDT [facility] CO2 25.0 21 - 32 MMOL/L 04/26/2025 6:04 AM CDT [facility] CALCIUM S/P/B 9.2 8.5 - 10.1 MG/DL 04/26/2025 6:04 AM CDT [facility] ANION GAP 3.0 2 - 10 MMOL/L 04/26/2025 6:04 AM T [facility] BUN CREATININE RATIO 25.6 6 - 26 04/26/2025 6:04 AM T [facility] GFR ESTIMATE >90 >90 ML/MIN/1.7 3 M2 04/26/2025 6:04 AM T [facility] Comment: NOTE: eGFR is not calculated for patients <18 years of age or gender unknown. This is an estimated GFR calculation using the new CKD EPI creatinine equation without race and so does not require a correction factor for race. This estimated GFR should not be used for calculating drug doses. 04/26/2025 5:20 AM CDT Owen Mujica MD LABORATORY Final Result [facility] [address] [place] [address], [place] [phone] * (ABNORMAL) CBC W/DIFF AUTOMATED (04/26/2025 5:20 AM CDT) Only the most recent of3 resultswithin the time period is included. [facility] Signature WBC 5.90 4.5 - 11.0 x10'3/uL 04/26/2025 5:51 AM CDT [facility] RBC 4.47 4.20 - 5.40 x10'6/uL 04/26/2025 5:51 AM CDT [facility] HGB 13.1 12.0 - 16.0 G/DL 04/26/2025 5:51 AM CDT [facility] HCT 39.7 38.0 - 48.0 % 04/26/2025 5:51 AM CDT [facility] MCV 88.8 81.0 - 99.0 FL 04/26/2025 5:51 AM CDT [facility] MCH 29.3 27.0 - 31.0 PG 04/26/2025 5:51 AM CDT [facility] MCHC 33.0 32.0 - 36.0 G/DL 04/26/2025 5:51 AM CDT [facility] RDW 12.7 11.5 - 14.5 % 04/26/2025 5:51 AM CDT [facility] PLT 349 130 - 400 x10'3/uL 04/26/2025 5:51 AM CDT [facility] MPV 8.9(L) 9.3 - 12.2 FL 04/26/2025 5:51 AM CDT [facility] DIFFERENTIAL TYPE AUTOMATED DIFFERENTIAL 04/26/2025 5:52 AM CDT [facility] NEUTROPHILS % 65.1 % 04/26/2025 5:52 AM CDT [facility] LYMPHOCYTES % 27.6 % 04/26/2025 5:52 AM CDT [facility] MONOCYTES % 4.9 % 04/26/2025 5:52 AM CDT [facility] EOSINOPHILS 1.7 % 04/26/2025 5:52 AM CDT [facility] BASOPHILS 0.5 % 04/26/2025 5:52 AM CDT [facility] IMMATURE GRANS % 0.2 % 04/26/20 5:52 AM CDT [facility] ABS. NEUTROPHILS 3.84 1.80 - 7.70 x10'3/uL 04/26/2025 5:52 AM CDT [facility] ABS. LYMPHOCYTES 1.63 1.00 - 4.80 x10'3/uL 04/26/2025 5:52 AM CDT [facility] ABS. MONOCYTES 0.29 0.24 - 0.86 x10'3/uL 04/26/2025 5:52 AM CDT [facility] ABS. EOSINOPHILS 0.10 0.04 - 0.36 x10'3/uL 04/26/2025 5:52 AM CDT [facility] ABS. BASOPHILS 0.03 0.01 - 0.08 x10'3/uL 04/26/2025 5:52 AM CDT [facility] ABS. IMMATURE GRANULOCYTES 0.01 0.00 - 0.49 x10'3/uL 04/26/2025 5:52 AM CDT [facility] 04/26/2025 5:20 AM CDT us Owen Mujica MD LABORATORY Final Result [facility] [address] [place] [address], * HEMOGLOBIN, GLYCATED (04/25/2025 4:20 AM CDT) HGB A1C 5.5 <5.7 % 04/25/2025 10:22 AM CDT [facility] Comment: ADA GUIDELINES 2009 5.7 TO 6.4% INCREASED RISK OF DIABETES > OR = 6.5% CONSISTENT WITH DIABETES ESTIMATED AVG GLUCOSE 111 mg/dL 04/25/2025 10:22 AM CDT [facility] 04/25/2025 4:20 AM CDT us Owen Mujica MD LABORATORY Final Result [facility] [address] [place] [address], * (ABNORMAL) LIPID PANEL (04/25/2025 4:20 AM CDT) CHOLESTEROL 174 <200 MG/DL 04/25/2025 5:11 AM CDT [facility] TRIGLYCERIDES 76 <150 MG/DL 04/25/2025 5:11 AM CDT [facility] HDL 53 >40.0 MG/DL 04/25/2025 5:11 AM CDT [facility] LDL (CALCULATED) 106(H) <100 MG/DL 04/25/2025 5:11 AM CDT [facility] Comment:CALCULATED USING THE FRIEDEWALD EQUATION NON HDL CHOLESTEROL 121 <130 MG/DL 04/25/2025 5:11 AM CDT [facility] CHOL/HDL RATIO 3.3 0.0 - 4.5 04/25/2025 5:11 AM CDT [facility] VLDL CALCULATION 15 5 - 55 MG/DL 04/25/2025 5:11 AM CDT [facility] LIPID INTERPRETATION 04/25/2025 5:11 AM CDT [facility] Comment: [facility] CONCENSUS REPORT RECOMMENDATIONS: ADULT CHILD LOW RISK: CHOLESTEROL <200 <170 TRIGLYCERIDE <150 --- HDL >=60 --- LDL <100 <110 BORDERLINE: CHOLESTEROL 200-239 170-199 TRIGLYCERIDE 150-199 --- HDL 40-59 --- LDL 100-159 110-129 HIGH RISK: CHOLESTEROL >=240 >=200 TRIGLYCERIDE >=200 --- HDL <40 --- LDL >=160 >=130 04/25/2025 4:20 AM CDT Owen Mujica MD LABORATORY Final Result Performing Organization Address [facility]/ZIP Co de Phone Number [facility] [address] [place] [phone], * TROPONIN, QUANT (04/25/2025 4:20 AM CDT) Only the most recent of4 resultswithin the time period is included. TROPONIN I HIGH SENSITIVITY 6 <54 ng/L 04/25/2025 5:14 AM CDT [facility] Comment: HIGH DOSES OF BIOTIN, TROPONIN-SPECIFIC AUTOANTIBODIES, AND ANTIBODY THERAPY CONTAINING HAMA MAY INTERFERE WITH THIS TEST RESULT. CORRELATION TO CLINICAL HISTORY AND PRESENTATION RECOMMENDED. 04/25/2025 4:20 AM CDT Owen Mujica MD LABORATORY Final Result Performing Organization Address City/[facility]/ZIP Co de Phone Number [facility] [address] [place] [address], [place] [phone] * THYROID STIM HORMONE, TSH (04/25/2025 4:20 AM CDT) TSH 1.480 0.358 - 3.74 uIU/ML 04/25/2025 5:17 AM CDT [facility] Comment: HIGH DOSES OF BIOTIN MAY INTERFERE WITH THIS TEST RESULT. CORRELATION TO CLINICAL HISTORY AND PRESENTATION RECOMMENDED. 04/25/2025 4:20 AM CDT Owen Mujica MD LABORATORY Final Result Performing Organization Address City/[facility] Co de Phone Number [facility] [address] [place] [phone], * MAGNESIUM (04/25/2025 4:20 AM CDT) Only the most recent of2 resultswithin the time period is included. MAGNESIUM 2.3 1.8 - 2.4 MG/DL 04/25/2025 9:27 AM CDT [facility] 04/25/2025 4:20 AM CDT Owen Mujcia MD LABORATORY Final Result Performing Organization Address [facility] Co de Phone Number [facility] [address] [place] [phone], * ECG 12 lead (04/24/2025 1:15 PM CDT) Only the most recent of2 resultswithin the time period is included. 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 : 1965 Requested By: AUNG STARK Order Number: [id number] Sukhdev MD: Yonis Ramirez Measurements Intervals [place] Rate: 59 P: 64 MS: 161 QRS: 65 QRSD: 94 T: 67 QT: 405 QTc: 403 Interpretive Statements SINUS BRADYCARDIA INCOMPLETE RIGHT BUNDLE BRANCH BLOCK [90+ ms QRS DURATION, TERMINAL R IN V1/V2, 40+ ms S IN I/aVL/V4/V5/V6] Compared to ECG 04/24/2025 11:33:01 Sinus rhythm no longer present Procedure Note Yonis Ramirez MD - 04/26/2025 [place] Test Date: 2025-04-24 Pat Name: DAMON KIM Department: 41 Room: [facility] 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: Female 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 : 1965 Requested By: AUNG STARK Order Number: [id number] Reading MD: Yonis Ramirez Measurements Intervals [place] Rate: 59 P: 64 MS: 161 QRS: 65 QRSD: 94 T: 67 QT: 405 QTc: 403 Interpretive Statements SINUS BRADYCARDIA INCOMPLETE RIGHT BUNDLE BRANCH BLOCK [90+ ms QRS DURATION, TERMINAL RIN V1/V2, 40+ ms S IN I/aVL/V4/V5/V6] Compared to ECG 04/24/2025 11:33:01 Sinus rhythm no longer present 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 ECG ORDERABLES Final Result [facility] ([facility] RAD * XR CHEST PORTABLE (04/24/2025 12:17 PM CDT) Anatomical Region Laterality Modality Chest Radiographic Estefania ging 04/24/2025 12:1 8 PM CDT Impressions 04/24/2025 12:19 PM CDT IMPRESSION: No acute findings Ordered By: ILANA LAWRENCE Interpreted By: Raman Montanez MD, 04/24/2025 12:18 PM Narrative 04/24/2025 12:19 PM CDT [address] [address] SINGLE VIEW OF THE CHEST Clinical history: Chest pain Comparison: March 07, 2021 A single view of the chest demonstrates the cardiac silhouette to be normal in size and appearance. The pulmonary vessels appear normal. The Lungs are clear. No consolidations or effusions are seen. Procedure Note Raman Montanez MD - 04/24/[address] [address] SINGLE VIEW OF THE CHEST Clinical history: Chest pain Comparison: March 07, 2021 A single view of the chest demonstrates the cardiac silhouette to benormal in size and appearance. The pulmonary vessels appear normal. TheLungs are clear. No consolidations or effusions are seen. IMPRESSION: No acute findings Ordered By: ILANA LAWRENCE Interpreted By: Raman Montanez MD, 04/24/2025 12:18 PM Ilana Lawrence MD GENERAL IMAGING Final Result * CT ABD+PEL W IV CON ONLY (04/24/2025 12:12 PM CDT) Anatomical Region Laterality Modality Abdomen Computed Tomogra phy 04/24/2025 12:3 9 PM CDT Impressions 04/24/2025 12:51 PM CDT IMPRESSION: 1. No definite acute abdominal or pelvic abnormalities are identified. 2. There is a technically indeterminate cystic lesion within the pancreatic head which measures approximately 11 mm. Further evaluation with MRI of the abdomen with/without contrast is recommended on a nonemergent basis within the near future. 3. Small left adrenal nodule, attention on the MRI. 4. Multiple small bilateral renal cysts, attention on the MRI. 5. Large stool burden which can be seen with constipation. 6. No visible inflammatory changes. Referred By: Interpreted By: Cecil Fregoso DO, 04/24/2025 12:39 PM Narrative 04/24/2025 12:51 PM CDT [address] [address] EXAMINATION: CT abdomen/pelvis with contrast HISTORY: Weakness. Left upper abdominal pain. COMPARISON: None. TECHNIQUE: Axial CT images of the abdomen and pelvis after the uneventful intravenous administration of 100 mL of Isovue-370 given through the left antecubital fossa. Sagittal and coronal reformatted image sets. A dose lowering technique was used for this procedure, which may include, but is not limited to, dose reduction technique, automated exposure control, the use of degenerative reconstruction, and ALARA/image gently techniques. FINDINGS: Lower chest: Mild dependent atelectasis within the lung bases. The heart is normally sized. Upper abdomen: The liver is normal in size and contour. There are scattered small simple benign-appearing hepatic cysts. There is no cholelithiasis. No evidence of acute cholecystitis. No biliary ductal dilatation. There is a technically indeterminate cystic lesion within the pancreatic head which measures approximately 11 mm. Further evaluation with MRI of the abdomen with/without contrast is recommended. No definite acute pancreatic abnormalities. The spleen is normally sized. There is a small splenule. Small left adrenal nodule, attention on the MRI, most likely an adenoma. Kidneys: The kidneys enhance symmetrically. No hydronephrosis or nephrolithiasis. There are multiple small bilateral renal cysts, attention on the recommended MRI. No evidence of renal inflammation. Vascular: The abdominal aorta is normal caliber. There is mild atherosclerotic vascular disease. No acute appearing vascular abnormalities. Bowel/mesentery: No ascites or free intraperitoneal air. There is no bowel obstruction. Mild colonic diverticulosis. No evidence of acute diverticulitis. No acute appearing gastric abnormalities. No herniated bowel loops. No visible colonic or enteric inflammatory changes. There is a large stool burden which can be seen with constipation. Pelvis: There are pelvic phleboliths. No free pelvic fluid. No bladder wall thickening. The uterus and ovaries appear normally sized. Other findings: None. Osseous: There are multisite degenerative changes throughout the spine and the pelvis. No acute osseous abnormalities are identified. There is thoracolumbar scoliosis. Procedure Note Cecil Fregoso DO - 04/24/2025 [facility] [address] [place], [place] [address] EXAMINATION: CT abdomen/pelvis with contrast HISTORY: Weakness. Left upper abdominal pain. COMPARISON: None. TECHNIQUE: Axial CT images of the abdomen and pelvis after the uneventful intravenousadministration of 100 mL of Isovue-370 given through the left antecubitalfossa. Sagittal and coronal reformatted image sets. A dose lowering technique was used for this procedure, which may include,but is not limited to, dose reduction technique, automated exposurecontrol, the use of degenerative reconstruction, and ALARA/image gentlytechniques. FINDINGS: Lower chest: Mild dependent atelectasis within the lung bases. The heartis normally sized. Upper abdomen: The liver is normal in size and contour. There arescattered small simple benign-appearing hepatic cysts. There is nocholelithiasis. No evidence of acute cholecystitis. No biliary ductaldilatation. There is a technically indeterminate cystic lesion within thepancreatic head which measures approximately 11 mm. Further evaluationwith MRI of the abdomen with/without contrast is recommended. No definiteacute pancreatic abnormalities. The spleen is normally sized. There is asmall splenule. Small left adrenal nodule, attention on the MRI, mostlikely an adenoma. Kidneys: The kidneys enhance symmetrically. No hydronephrosis ornephrolithiasis. There are multiple small bilateral renal cysts,attention on the recommended MRI. No evidence of renal inflammation. Vascular: The abdominal aorta is normal caliber. There is mildatherosclerotic vascular disease. No acute appearing vascularabnormalities. Bowel/mesentery: No ascites or free intraperitoneal air. There is nobowel obstruction. Mild colonic diverticulosis. No evidence of acutediverticulitis. No acute appearing gastric abnormalities. No herniatedbowel loops. No visible colonic or enteric inflammatory changes. Thereis a large stool burden which can be seen with constipation. Pelvis: There are pelvic phleboliths. No free pelvic fluid. No bladderwall thickening. The uterus and ovaries appear normally sized. Other findings: None. Osseous: There are multisite degenerative changes throughout the spine andthe pelvis. No acute osseous abnormalities are identified. There isthoracolumbar scoliosis. IMPRESSION: 1. No definite acute abdominal or pelvic abnormalities are identified. 2. There is a technically indeterminate cystic lesion within thepancreatic head which measures approximately 11 mm. Further evaluationwith MRI of the abdomen with/without contrast is recommended on anonemergent basis within the near future. 3. Small left adrenal nodule, attention on the MRI. 4. Multiple small bilateral renal cysts, attention on the MRI. 5. Large stool burden which can be seen with constipation. 6. No visible inflammatory changes. Referred By: Interpreted By: Cecil Fregoso DO, 04/24/2025 12:[address] Final Result * CORONAVIRUS (COVID 19) (04/24/2025 11:29 AM CDT) CORONAVIRUS SARS COV 2 RNA NEGATIVE NEGATIVE 04/24/2025 12:37 PM CDT [facility] Comment: NEGATIVE RESULTS DO NOT RULE OUT COVID 19 AND SHOULD NOT BE USED THE SOLE BASIS FOR TREATMENT OR PATIENT MANAGEMENT DECISIONS, INCLUDING INFECTION CONTROL DECISIONS. NEGATIVE RESULTS SHOULD BE CONSIDERED IN THE CONTEXT OF A PATIENT'S RECENT EXPOSURES, HISTORY AND THE PRESENCE OF CLINICAL SIGNS AND SYMPTOMS CONSISTENT WITH COVID 19. THE ID NOW COVID-19 2.0 TEST HAS BEEN AUTHORIZED BY THE FDA UNDER EAU FOR USE BY AUTHORIZED LABORATORIES. PERFORMED BY NUCLEIC ACID AMPLIFICATION FOR MOLECULAR QUALITATIVE DETECTION OF SARS-COV-2. SPECIMEN TYPE NASAL 04/24/2025 11:29 AM CDT [facility] NASAL STRUCTURE / Unknown 04/24/2025 11:29 AM CDT Ilana RODRIGUES MICROBIOLOGY - GENERAL ORDER KRISTYN Final Result [facility] [address] [facility] [place] [address], * (ABNORMAL) COMPREHENSIVE METABOLIC PANEL (04/24/2025 11:28 AM CDT) [facility] GLUCOSE 98 70 - 99 MG/DL 04/24/2025 12:10 PM CDT [facility] BUN 7 7 - 18 MG/DL 04/24/2025 12:10 PM CDT [facility] CREATININE S/P/B 0.58 0.55 - 1.02 MG/DL 04/24/2025 12:10 PM CDT [facility] SODIUM S/P/B 138 136 - 145 MMOL/L 04/24/2025 12:10 PM CDT [facility] POTASSIUM S/P/B 3.5 3.5 - 5.1 MMOL/L 04/24/2025 12:10 PM CDT [facility] CHLORIDE S/P/B 106 97 - 115 MMOL/L 04/24/2025 12:10 PM CDT [facility] CO2 26.2 21 - 32 MMOL/L 04/24/2025 12:10 PM CDT [facility] CALCIUM S/P/B 9.3 8.5 - 10.1 MG/DL 04/24/2025 12:10 PM CDT [facility] BILIRUBIN TOTAL S/P/B 0.3 0.2 - 1.2 MG/DL 04/24/2025 12:10 PM CDT [facility] Comment: THIS ASSAY IS NOT RECOMMENDED FOR PATIENTS UNDERGOING TREATMENT WITH ELTROMBOPAG DUE TO THE POTENTIAL FOR FALSELY ELEVATED RESULTS. TOTAL PROTEIN S/P/B 7.3 6.4 - 8.2 G/DL 04/24/2025 12:10 PM CDT [facility] ALBUMIN S/P/B 4.0 3.4 - 5.0 G/DL 04/24/2025 12:10 PM CDT [facility] AST 13(L) 15 - 37 U/L 04/24/2025 12:10 PM CDT [facility] ALT 18 14 - 55 U/L 04/24/2025 12:10 PM CDT [facility] ALKALINE PHOSPHATASE S/P/B 76 50 - 136 U/L 04/24/2025 12:10 PM CDT [facility] ANION GAP 5.8 2 - 10 MMOL/L 04/24/2025 12:10 PM CDT [facility] BUN CREATININE RATIO 12.0 6 - 26 04/24/2025 12:10 PM CDT [facility] A/G RATIO 1.2 1.0 - 2.0 RATIO 04/24/2025 12:10 PM CDT [facility] GFR ESTIMATE >90 >90 ML/MIN/1.7 3 M2 04/24/2025 12:10 PM CDT [facility] Comment: NOTE: eGFR is not calculated for patients <18 years of age or gender unknown. This is an estimated GFR calculation using the new CKD EPI creatinine equation without race and so does not require a correction factor for race. This estimated GFR should not be used for calculating drug doses. 04/24/2025 11:2 8 AM CDT [facility] Final Result [facility] [address] [place] [address], [place] [phone] * LIPASE (04/24/2025 11:28 AM CDT) LIPASE 23 13 - 75 UNITS/L 04/24/2025 12:10 PM CDT [facility] 04/24/2025 11:2 8 AM CDT [facility] Final Result [facility] [address] [place] [address], [place] [phone] * MG SCREENING W NANCY YOSVANY DIGI (04/22/2025 11:26 AM CDT) Anatomical Region Laterality Modality Breast Bilateral Mammography 04/22/2025 5:08 PM CDT Impressions 04/22/2025 5:11 PM CDT ===== IMPRESSION: ===== 1. Stable mammographic appearance with no new findings to suggest malignancy in either breast. Assessment: ACR BI-RADS 2 - BENIGN FINDING(S) Recommendation: 1:Routine Screening Bilateral Comments: Ordered By: ROSSANA PETTIT Interpreted By: Gibson Gupta, 04/22/2025 5:08 PM Narrative 04/22/2025 5:11 PM CDT [facility] [address] [place] [address] EXAMINATION: Digital bilateral screening mammogram with 3-D tomosynthesis EXAM DATE/TIME: 04/22/2025 10:40 AM REASON FOR EXAM: screening mammogram Benign right breast biopsy. COMPARISON: 11/05/2019. 02/25/2024 Technique: Digital screening mammography of both breasts was performed in addition to 3-D Tomosynthesis technique. This study was read with the assistance of a computer-aided detection system. Tissue density: There are scattered areas of fibroglandular density. Findings: There is no new focal asymmetry, dominant mass lesion, area of skin thickening, or cluster of suspicious appearing calcifications in either breast to suggest malignancy. Rossana Pettit DO MAMMO Final Re sult * CT LUNG SCREENING (07/25/2022 12:42 PM CDT) Anatomical Region Laterality Modality Chest Computed Tomogra phy 07/25/2022 4:30 PM CDT Impressions 07/25/2022 4:33 PM CDT =====Impression:===== LUNG-RADS Category/Recommendation:1 /Continue annual screening with LDCT in 12 months. Suggest follow up exam on or around 2023-07-25. LUNG-RADS category S: Negative, no new/unknown potentially significant incidental findings requiring urgent additional evaluation. Other Incidental Findings: None Thank you for choosing the [facility] Lung Screening Program. Ordered By: ROSSANA PETTIT Interpreted By: Charlene Hyatt MD, 07/25/2022 4:30 PM Narrative 07/25/2022 4:33 PM CDT Examination: Lung Screening Low-Dose Ct Thorax Without Contrast Exam date/time: 07/25/2022 12:42 PM Clinical history: Asymptomatic patient meeting NCCN high-risk criteria for lung screening. * 56 years * 30 pack years or greater * Current smoker of have quit smoking within the last 15 years. Comparison: None. Technique: Noncontrast, helical, low-dose CT (LDCT) chest per standard departmental protocol. A dose lowering technique was used for this procedure, which may include, but is not limited to, dose reduction technique, automated exposure control, the use of iterative reconstruction, and ALARA (As Low As Reasonably Achievable) / Image Gently techniques. FINDINGS: Lung Screening Specific (LUNG-RADS): Part or all of lungs cannot be evaluated. Potentially Significant Incidentals (LUNG-RADS category S): None. Additional Findings: Normal cardiac size. No pericardial or pleural effusion. No adenopathy in the chest. Diffuse centrilobular emphysema, moderate in the upper lung machuca. Bilateral dependent lung base streaky linear areas of bandlike subsegmental atelectasis. Procedure Note Charlene Hyatt MD - 07/25/2022 Examination: Lung Screening Low-Dose Ct Thorax Without Contrast Exam date/time: 07/25/2022 12:42 PM Clinical history: Asymptomatic patient meeting NCCN high-risk criteria forlung screening. * 56 years * 30 pack years or greater * Current smoker of have quit smoking within the last 15 years. Comparison: None. Technique: Noncontrast, helical, low-dose CT (LDCT) chest per standarddepartmental protocol. A dose lowering technique was used for thisprocedure, which may include, but is not limited to, dose reductiontechnique, automated exposure control, the use of iterativereconstruction, and ALARA (As Low As Reasonably Achievable) / Image Gentlytechniques. FINDINGS: Lung Screening Specific (LUNG-RADS): Part or all of lungs cannot beevaluated. Potentially Significant Incidentals (LUNG-RADS category S): None. Additional Findings: Normal cardiac size. No pericardial or pleuraleffusion. No adenopathy in the chest. Diffuse centrilobular emphysema, moderate in the upper lung machuca. Bilateral dependent lung base streaky linear areas of bandlikesubsegmental atelectasis. =====Impression:===== LUNG-RADS Category/Recommendation:1 /Continue annual screening with LDCTin 12 months. Suggest follow up exam on or around 2023-07-25. LUNG-RADS category S: Negative, no new/unknown potentially significantincidental findings requiring urgent additional evaluation. Other Incidental Findings: None Thank you for choosing the [facility]. Ordered By: ROSSANA PETTIT Interpreted By: Charlene Hyatt MD, 07/25/2022 4:30 PM us Rossana Pettit DO CT Final Re sult * HUMAN PAPILLOMAVIRUS, HIGH-RISK TYPES (06/16/2020 10:53 AM CDT) HPV INTERMEDIATE/HI GH RISK Not Detected NOT DETECTED [facility] Comment: Not Detected High Risk HPV types (16,18,31,33,35,39,45,51,52, 56,58,59,66,68) were not detected. Other HPV types which cause anogenital lesions may be present. The significance of the other types of HPV in malignant processes has not been established. Methodology: Real Time PCR 06/16/2020 10:5 3 AM CDT 06/17/2020 8:43 AM CDT Narrative Resulting Agency Comment Performing Organization Information: Site ID: AMD Name: [facility] Address: [address] [place] [address] Director: Oscar Mcmanus M.D.,PhD Rayne RODAS PATHOLOGY/CYTOLOGY ORDERABL ES Final Result [facility] [address] , * CYTOPATH CERV/VAG THIN LAYER [[id number]] (06/16/2020 10:53 AM CDT) CLINICAL INFORMATION: Information not provided [facility] [place] Clinical Information: INFORMATION NOT PROVIDED [facility] [place] Date of Last Pap INFORMATION NOT PROVIDED [facility] [place] Previous Biopsy? INFORMATION NOT PROVIDED [facility] [place] SOURCE (QST) Information not provided [facility] [place] STATEMENT OF ADEQUACY: SATISFACTORY FOR EVALUATION [facility] [place] PAP INTERPRETATION/RESU LTS Negative for intraepithelial lesion or malignancy. [facility] [place] MUSHROOM [facility]ACKER [place] [place] Comment: KMS, CT(ASCP) CT Screening location: [place] [address] [address] [place] [address] COMMENT: [facility] [place] Comment: EXPLANATORY NOTE: The Pap is a screening test for cervical cancer. It is not a diagnostic test and is subject to false negative and false positive results. It is most reliable when a satisfactory sample, regularly obtained, is submitted with relevant clinical findings and history, and when the Pap result is evaluated along with historic and current clinical information. 06/16/2020 10:5 3 AM CDT 06/17/2020 8:43 AM CDT Narrative Resulting Agency Comment Performing Organization Information: Site ID: [place] Name: [facility] Address: [id number] [place] [address] Director: Vandana Noriega us Rayne RODAS PATHOLOGY/CYTOLOGY ORDERABL ES Final Result [facility] [place] [address] [place] [address], [place] from Last 3 Months or Most Recently Relevant to Health Maintenance Insurance Advance Directives * DNR (Latest Code Status on File) Date Activated Date Inactivated Comments 04/25/2025 7:48 AM 04/26/2025 2:18 PM * Full Code Date Activated Date Inactivated Comments 04/24/2025 8:21 PM 04/25/2025 7:48 AM * DNR Date Activated Date Inactivated Comments 04/24/2025 4:26 PM 04/24/2025 8:21 PM 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
--- OUTSIDE RECORDS SUMMARY | 2025-05-22 10:41 | XMS_ITS | Continuity of Care Document ---
Author Name [facility] Organization [facility] Care Team Providers Care Dispatcher Refinery Name Role Phone [facility] Unavailable Unavailable Problems [...] AUROBINDO PHARM, 100 ea. BOTTLE Cancele d [id number] : 2023 0 Pharmac y Data Transac [...] Site Reaction Lot Number CVX Code Drug Vibration Analyst Status Comments Source COVID-19, mRNA, LNP-S, PF, 30 mcg/0.3 mL dose 2020 FONTNAA, [place] (PFR) Not Given COVID-19, mRNA, LNP-S, PF, 30 mcg/0.3 mL dose [facility] COVID-19, mRNA, LNP-S, PF, 30 mcg/0.3 mL dose 2020 Gr[employer]per [place] (PFR) Not Given COVID-19, mRNA, LNP-S, PF, 30 mcg/0.3 mL dose DoD influenza virus vaccine, live 2007 [id number] 111 [employer] comple t ed influenza virus vaccine, live 07/20/08 Given Ambulat ory Pharmac y influenza virus vaccine, live, attenuated, for intranasal use 1 2007 [id number] 111 Talko, Inc. (MED) complet ed influenza virus vaccine, live, attenuate d, for intranasa l use DoD tetanus, diphtheria, acellular pertu is 2007 [id number] sanofi pasteur complet ed tetanus, diphtheri a, acellular pertussis 11/05/07 Given Ambulat ory Pharmac y tetanus toxoid, reduced diphtheria toxoid, and acellular pertu is vaccine, adsorbed 1 2007 [id number] Sanofi Pasteur ([facility]) complet ed tetanus toxoid, reduced diphtheri a toxoid, and acellular pertussis vaccine, adsorbed DoD influenza virus vaccine, live 2006 [id number] 111 NHK [employer] comple t ed influenza virus vaccine, live 08/01/07 Given Ambulat ory Pharmac y influenza virus vaccine, live, attenuated, for intranasal use 0 2006 [id number] 111 [employer], Inc. (MED) complet ed influenza virus vaccine, live, attenuate d, for intranasa l use DoD anthrax vaccine 2006 [id number] Emer[employer] complet ed anthrax vaccine 07/12/07 Given Ambulat ory Pharmac y anthrax vaccine 3 2006 [id number] [employer] Gilberto (MIP) complet ed anthrax vaccine DoD anthrax vaccine 2006 [id number] [employer] complet ed anthrax vaccine 06/09/07 Given Ambulat ory Pharmac y anthrax vaccine 2 2006 [id number] [employer] Debord (MIP) complet ed anthrax vaccine DoD vaccinia (smallpox) vaccine 2006 [id number] [employer] complet ed vaccinia (smallpox ) vaccine 05/15/07 Given Ambulat ory Pharmac y typhoid Vi capsular polysaccharid e vac 2006 [id number] sanofi pasteur complet ed typhoid Vi capsular polysacch aride vac 05/15/07 Given Ambulat ory Pharmac y vaccinia (smallpox) vaccine 1 2006 [id number] 75 Jensen (RADHA) complet ed vaccinia (smallpox ) vaccine DoD typhoid Vi capsular polysaccharid e vaccine 1 2006 [id number] 101 Sanofi Pasteur (PMC) complet ed typhoid Vi capsular polysacch aride vaccine DoD anthrax vaccine 2006 [id number] [employer] complet ed anthrax vaccine 05/12/07 Given Ambulat ory Pharmac y anthrax vaccine 1 2006 [id number] [employer] Debord (MIP) complet ed anthrax vaccine DoD influenza virus vaccine,split 2005 [id number] 15 sanofi pasteur complet ed influenza virus vaccine,s plit 09/19/06 Given Ambulat ory Pharmac y influenza virus vaccine, split virus (incl. purified surface antigen)-reti red CODE 1 2005 [id number] 15 Sanofi Pasteur (PMC) complet ed influenza virus vaccine, split virus (incl. purified surface antigen)- retired CODE DoD measles, mumps and rubella virus vaccine 0 2005 03 () Not Given measles, mumps and rubella virus vaccine [facility] tetanus-dipht h toxoids (Td) adult/adol 2004 [id number] 09 sanofi pasteur complet ed tetanus-d iphth toxoids (Td) adult/ado l 10/17/05 Given Ambulat ory Pharmac y tetanus and diphtheria toxoids, adsorbed, preservative free, for adult use (2 Lf of tetanus toxoid and 2 Lf of diphtheria toxoid) 1 2004 [id number] 09 Sanofi Pasteur (PMC) complet ed tetanus and diphtheri a toxoids, adsorbed, preservat rose free, for adult use (2 Lf of tetanus toxoid and 2 Lf of diphtheri a toxoid) DoD influenza virus vaccine, live 2004 [id number] 111 [employer] Inc comple t ed influenza virus vaccine, live 07/24/05 Given Ambulat ory Pharmac y influenza virus vaccine, live, attenuated, for intranasal use 1 2004 [id number] 111 Talko, Inc. (MED) complet ed influenza virus vaccine, live, attenuate d, for intranasa l use DoD hepatitis B vaccine, adult dosage 0 2003 43 () Not Given hepatitis B vaccine, adult dosage DoD varicella virus vaccine 0 2002 21 () Not Given varicella virus vaccine DoD influenza virus vaccine, whole virus 2002 [id number] 16 Novartis Pharmaceutica ls complet ed influenza virus vaccine, whole virus 07/23/03 Given Ambulat ory Pharmac y influenza virus vaccine, whole virus 0 2002 [id number] 16 [employer] ls (PWJ) complet ed influenza virus vaccine, whole virus DoD influenza virus vaccine, whole virus 2001 [id number] 16 sanofi pasteur complet ed influenza virus vaccine, whole virus 08/19/02 Given Ambulat ory Pharmac y influenza virus vaccine, whole virus 0 2001 [id number] 16 Sanofi Pasteur (PMC) complet ed influenza virus vaccine, whole virus DoD influenza virus vaccine, whole virus 2000 [id number] 16 sanofi pasteur complet ed influenza virus vaccine, whole virus 08/19/01 Given Ambulat ory Pharmac y influenza virus vaccine, whole virus 0 2000 [id number] 16 Sanofi Pasteur (PMC) complet ed influenza virus vaccine, whole virus DoD influenza virus vaccine, whole virus 2000 [id number] 16 sanofi pasteur complet ed influenza virus vaccine, whole virus 01/20/01 Given Ambulat ory Pharmac y influenza virus vaccine, whole virus 0 2000 [id number] 16 Sanofi Pasteur (PMC) complet ed influenza virus vaccine, whole virus DoD influenza virus vaccine, whole virus 1999 [id number] 16 [facility] influenza virus vaccine, whole virus 09/18/00 Given Ambulat ory Pharmac y influenza virus vaccine, whole virus 0 1999 [id number] 16 [facility] ([facility]) complet ed influenza virus vaccine, whole [...] oral DoD influenza virus vaccine, whole virus 19972341 [id number] 16 [facility] complet ed influenza virus vaccine, whole virus 08/16/98 Given Ambulat ory Pharmac y influenza virus vaccine, whole virus 0 19978094 [id number] 16 [facility] ([facility]) complet ed influenza virus vaccine, whole virus DoD tuberculin purified protein derivative 1997 [id number] 96 [facility] complet ed Patient Tolerance : Negative Ambulat ory Pharmac y tuberculin skin test; purified protein derivative solution, intradermal 3 1997 Unknown, Provider [id number] [facility] complet ed tuberculi n skin test; purified protein derivativ e solution, intraderm al DoD influenza virus vaccine, whole virus 19962028 [id number] 16 [employer] complet ed influenza virus vaccine, whole virus 08/23/97 Given Ambulat ory Pharmac y influenza virus vaccine, whole virus 0 19965900 [id number] 16 [facility] (Inactive) ([place]) complet ed influenza virus vaccine, whole virus DoD tuberculin purified protein derivative 1996 [id number] 96 [facility] complet ed Patient Tolerance : Negative Ambulat ory Pharmac y tuberculin skin test; purified protein derivative solution, intradermal 2 1996 Unknown, Provider [id number] 96 [employer] (CON) complet ed tuberculi n [...] ed trivalent polioviru s vaccine, live, oral [facility] poliovirus vaccine, live, oral 1985 02 complet [...] [facility]) OUTPATIENT [id number] ROSIE Campoverde 07/20 Sick at Home/Quarter s DALIA Tellez([facility]) DALIA Tellez(Academ y Neurology ) OUTPATIENT [id number] BOTOX appt CHERYL CAO 09/26 Released w/o Limitations DALIA Tellez(Acad teresa Neurolo gy) DALIA Tellez([facility]) OUTPATIENT [id number] moles on back KATTY MANNING R 10/01 Released w/o Limitations DALIA Tellez([facility]) DALIA Tellez(Academ y Neurology ) OUTPATIENT [id number] F/u Appt per Col CHERYL Mcdaniel 10/11 Released w/o Limitations DALIA Tellez(Acad teresa Neurolo gy) [facility] CEDILLO ([facility]Fam galileo Practice Non-GME FHI2) OUTPATIENT [id number] POSS BROKEN TOE LINNETTE LANDAVERDE 03/08 Released w/o Limitations [facility] CEDILLO ([facility])(F amily Practic e Non-GME FHI2) [employer] CEDILLO ([facility]Fam galileo Practice Non-GME FHI2) OUTPATIENT [id number] left inguina l bulge x 2 days, tender LINNETTE LANDAVERDE 07/15 Released w/o Limitations [employer] ([facility])(F amily Practic e Non-GME FHI2) [employer] ([facility])(Gen eral Surgery) OUTPATIENT [id number] hernia KELTON NIX 07/18 Released w/o Limitations [employer] ([facility])(G eneral Surgery ) [employer] B [facility]Fam galileo Practice Non-GME FHI2) TELE CONSULT [id number] [facility] Hair 07/26 [employer] ([facility])(F amily Practic e Non-GME FHI2) [employer] B ([facility])(Gen eral Surgery) OUTPATIENT [id number] hernia KELTON NIX 08/22 Released w/o Limitations [employer] STONEB ([facility])(G eneral Surgery ) [facility]) OUTPATIENT [id number] AYLA Simon 09/04 Released w/o Limitations [employer] STONEB ([facility])([facility]) [facility] STONEB [facility] Practice Non-GME FHI1) OUTPATIENT [id number] abdomin al pain SUSAN AMERICA P 01/08 Released w/o Limitations [facility] [employer] STONE[employer] ([facility])(F amily Practic e Non-GME FHI1) [facility] [employer] [facility] ([facility])([facility]) OUTPATIENT [id number] JEANCARLOS CANDELARIO 05/19 Released w/o Limitations [employer] ([facility])([facility]) [facility] [employer] ([facility])([facility]) OUTPATIENT [id number] [facility] Wang 05/19 Released w/o Limitations [employer] ([facility])([facility]) [facility] OUTPATIENT [id number] 07/12 Released w/o Limitations [facility] OUTPATIENT [id number] 08/28 Released w/o Limitations [facility] y [address] [place] [address] Zaid CEDILLO ([facility])(Kyo tt Internal Medicine Tm) OUTPATIENT [id number] well woman/P ap MDG access JASMEET MAGANA L 01/14 Released w/o Limitations [address] [place] [address] Zaid STONEB ([facility])(S cott Interna l Medicin e Tm) [address] [place] [address] [employer]aid STONEB ([facility])([facility] tt Internal Medicine Tm) TELE CONSULT [id number] LAB RESULTS AFTER JASMEET MAGAAN 01/[address] [place] [address] [employer]aid STONEB ([facility])(S cott Interna l Medicin e Tm) [address] [place] [address] Zaid STONEB ([facility])(Fam galileo Practice Non-GME FHI1) OUTPATIENT [id number] stomach problem s LIBERTY MCCALL 01/27 Sick at Home/Quarter s [address] [place] [address] Zaid STONEB [facility])(F amily Practic e Non-GME FHI1) [address] [place] [address] Zaid STONEB [facility] galileo Practice Non-GME FHI1) TELE CONSULT [id number] SILVER KAMARA 02/[address] [place] [address] Zaid STONEB [facility])(F amily Practic e Non-GME FHI1) [address] [place] [address] Zaid STONEB ([facility])([facility] galileo Practice Non-GME FHI2) OUTPATIENT [id number] dx w/herni ated c-spine disks 2 yrs ago, now c/o n/t ortega upper ext JAVED MAGALLANES 02/08 Released w/o Limitations [address] [place] [address] Zaid STONEB ([facility])(F amily Practic e Non-GME FHI2) [address] [place] [address] Zaid STONEB [facility] galileo Practice Non-GME FHI1) OUTPATIENT [id number] [facility] - Web Based Assessm ent (9) MATT TANNER 05/25 Released w/o Limitations [address] [place] [address] Zaid STONEB ([facility])(F amily Practic e Non-GME FHI1) [address] [place] [address] [employer] ([facility])(Opt ometry) OUTPATIENT [id number] conjunc tival hemorrh age left eye DASHA LUBIN 05/26 Released w/o Limitations [address] [place] [address] Zaid STONEJaswinder ([facility])(O ptometr y) [facility] Zaid CEDILLO ([facility])([facility] Practice Non-GME FHI2) OUTPATIENT [id number] abnorma l bleedin g in abd. and flank pain [phone] BRIE MCCALL 11/22 Released w/o Limitations [address] [place] [address] Zaid CHASEJaswinder ([facility])(F amily Practic e Non-GME FHI2) [address] [place] [address] Zaid CEDILLO [facility]Fam galileo Practice Non-GME FHI1) OUTPATIENT [id number] Cold Symptom s JEANCARLOS VILLEGAS Santana 12/03 Released w/o Limitations [facility] Zaid CHASEB ([facility])(F amily Practic e Non-GME FHI1) [address] [place] [address] Zaid CHASEJaswinder [facility]) OUTPATIENT [id number] [facility] T[facility]IE ASHVIN DAVISKAYLAN Shelton 12/31 Released w/o Limitations [facility] Zaid CHASEJaswinder ([facility])([facility]) [address] [place] [address] Zaid CHASEJaswinder [facility]Fam galileo Med Tm B Non-AD BCC) OUTPATIENT [id number] Retirem ent physica l [phone] BRIE MCCALL 02/10 Released w/o Limitations [address] [place] [address] Zaid CHASEJaswinder [facility]F amily Med Tm B Non-AD BCC) [address] [place] [address] Zaid NGUYEN [facility]Fam galileo Med Tm B Non-AD BCC) TELE CONSULT [id number] Rad Results BRIE MCCALL 02/[address] [place] [address] Zaid CHASEJaswinder [facility]F amily Med Tm B Non-AD BCC) [address] [place] [address] Zaid CHASEJaswinder [facility]) DENTAL [id number] op dent #29, #30 SHERRY FOWLER M 03/02 Released w/o Limitations [address] [place] [address] Zaid CHASEJaswinder ([facility])(D ental Clinic) [address] [place] [address] Zaid CHASEJaswinder [facility]Fam galileo Med Tm B Non-AD BCC) TELE CONSULT [id number] PCM - Dr. Mccall - WALTER Hanley 12/[address] [place] [address] Zaid CEDILLO [facility])(F amily Med Tm B Non-AD BCC) [address] [place] [address] Zaid STONEB ([facility])(Fam galileo Med Tm B Non-AD BCC) TELE CONSULT [id number] Lab Results WALTER MATHIS 01/[address] [place] [address] Zaid STONEB [facility])(F amily Med Tm B Non-AD BCC) [address] [place] [address] Zaid B ([facility])(Fam galileo Med Tm B Non-AD BCC) OUTPATIENT [id number] fu medicat ions and refills [phone] BRIE MCCALL 01/19 Released w/o Limitations [address] [place] [address] Zaid B ([facility])(F amily Med Tm B Non-AD BCC) [address] [place] [address] Zaid B [facility])(Fam galileo Med Tm B Non-AD BCC) TELE CONSULT [id number] pt request refill of Ambien( msg left on DM line) Radha [phone] FELICITA PARKER 08/[address] [place] [address] Zaid STONEB [facility]F amily Med Tm B Non-AD BCC) [address] [place] [address] Zaid [facility])(Fam galileo Med Tm B Non-AD BCC) OUTPATIENT [id number] blood in stools [phone] BRIE MCCALL 11/13 Released w/o Limitations [address] [place] [address] Zaid STONEB ([facility])(F amily Med Tm B Non-AD BCC) [address] [place] [address] Zaid [facility])(Fam galileo Med Tm B Non-AD BCC) TELE CONSULT [id number] Med refill/ Mccall/f xs WALTER MATHIS 01/[address] [place] [address] Zaid [facility])(F amily Med Tm B Non-AD BCC) [address] [place] [address] Zaid B [facility])(Fam galileo Med Tm B Non-AD BCC) TELE CONSULT [id number] med refill Radha cad TIM Vasquez 08/[address] [place] [address] Zaid B [facility])(F amily Med Tm B Non-AD BCC) [address] [place] [address] Zaid B [facility])(Fam galileo Med Tm B Non-AD BCC) OUTPATIENT [id number] f/u depress ion BRIE MCCALL 08/13 Released w/o Limitations [address] [place] [address] [employer] ([facility])(F amily Med Tm B Non-AD BCC) [address] [place] [address] Group Zaid STONEB ([facility])([facility] Pharm D Clinic) OUTPATIENT [id number] Smoking Cessati on DEE CONNORS 08/27 Released w/o Limitations [address] [place] [address] [facility] ([facility]I Pharm D Clinic) [address] [place] [address] Zaid STONEB [facility]Fam galileo Med Tm B Non-AD BCC) TELE CONSULT [id number] Notes Entered by: Jagdish WILLIAMSON 29 Jul 2012 0839 ------- ------- ------- ------- -- Med refill/ [facility]/jagdish ad/cls [phone] TIM FRANCISCO 07/[address] [place] [address] Zaid [facility])(F amily Med Tm B Non-AD BCC) [address] [place] [address] Zaid CHASEB [facility])(Fam galileo Med Tm B Non-AD BCC) OUTPATIENT [id number] follow up zoloft medicat ion [id number] ABIGAIL MORALES 08/12 Released w/o Limitations [address] [place] [address] Zaid STONE ([facility])(F amily Med Tm B Non-AD BCC) [address] [place] [address] Zaid CHASEB [facility]Fam galileo Med Tm B Non-AD BCC) TELE CONSULT [id number] Notes Entered by: Nik MORALES 10 Sep 2012 0856 ------- ------- ------- ------- -- lab ABIGAIL MORALES 09/[address] [place] [address] Zaid CHASEJaswinder [facility]F amily Med Tm B Non-AD BCC) [address] [place] [address] Zaid B [facility])(War rior Op Med Cln Tm A Ad) TELE CONSULT [id number] Notes Entered by: KASHMIR STARK 30 Sep 2012 1708 ------- ------- ------- ------- -- Network Results - GASTROE NTEROLO GY 09/26/12 ABIGAIL MORALES 09/[address] [place] [address] Zaid CHASEJaswinder [facility]W arrior Op Med Cln Tm A Ad) [address] [place] [address] Zaid [facility])(Fam galileo Med Tm B Non-AD BCC) TELE CONSULT [id number] Notes Entered by: Nik MORALES 01 Oct 2012 1250 ------- ------- ------- ------- -- labs TIM FRANCISCO 10/[address] [place] [address])(F amily Med Tm B Non-AD BCC) [address] [place] [address])(Fam galileo Med Tm B Non-AD BCC) OUTPATIENT [id number] Sleep concern s [phone] MARGARITA ZAVALA 12/24 Released w/o Limitations [address] [place] [address])(F amily Med Tm B Non-AD BCC) [address] [place] [address])(Fam galileo Med Tm B Non-AD BCC) TELE CONSULT [id number] Notes Entered by: NATALIA ORTIZ 02 Feb 2013 0732 ------- ------- ------- ------- -- Back pain, leg pain, chills, sweatin [facility] Haileyshadi TIM FRANCISCO 02/[address] [place] [address])(F amily Med Tm B Non-AD BCC) [address] [place] [address])(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 ecology) OUTPATIENT [id number] [facility] [id number] KAYLEY MUNIZ 02/02 Released w/o Limitations [address] [place] [address])(Maureen lyle gy) [address] [place] [address])(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 ecology) TELE CONSULT [id number] Notes Entered by: KAYLEY MUNIZ 12 Feb 2014 0747 ------- ------- ------- ------- -- results JEFF VALENTE 02/[address] [place] [address])(Maureen lyle gy) [address] [place] [address])([employer] 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 ecology) OUTPATIENT [id number] [facility] [phone] KAYLEY MUNIZ 02/15 Released w/o Limitations [address] [place] [address] [facility]aid [facility] ([facility])(Maureen edmondsonrashad gy) [address] [place] [address] Zaid [facility])(S[employer]ing 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 Outpatient Encounter [id number] 6 04/22 [facility] Procedures Combined list of: [...] Biopsy By Suction Endometrial Biopsy By Suction [id number] KAYLEY MUNIZ [facility] Test Test [id number] KAYLEY MUNIZ Screening papanicolaou smear; obtaining, preparing and conveyance of cervical or vaginal smear to laboratory KAYLEY MUNIZ Non-Physician Phone Call To Pt/Provider Intermed (11-20 min) Non-Physician Phone Call To Pt/Provider Intermed (11-20 min) [id number] TIM FRANCISCO Non-Physician Phone Call To Pt/Provider Intermed (11-20 min) Non-Physician Phone Call To Pt/Provider Intermed (11-20 min) [phone] FRANCISCOTIM Non-Physician Phone Call To Pt/Provider Intermed (11-20 min) Non-Physician Phone Call To Pt/Provider Intermed (11-20 min) [phone] TIM FRANCISCO Smoking ce ation cla es, non-physician provider, per se ion 011 DEE CONNORS Medication Management By Pharmacist Each Additional 15 Min Medication Management By Pharmacist Each Additional 15 Min [phone] DEE CONNORS Med Management By Pharmacist Initial 15 Min New Patient Med Management By Pharmacist Initial 15 Min New Patient [id number] DEE CONNORS A e ment & Intervention Tobacco Use Screening With Ce ation Counseling 011 BRIE MCCALL Non-Physician Phone Call To Pt/Provider Intermed (11-20 min) Non-Physician Phone Call To Pt/Provider Intermed (11-20 min) [phone] TIM FRANCISCO Respiratory Equip IPPB Related Nebulizer W/ Compre Respiratory Equip IPPB Related Nebulizer W/ Compress [phone] JEANCARLOS VILLEGAS Nebulizer, with compre or 009 JEANCARLOS VILLEGAS Ophthalmological New Patient Start Intermediate Level Care Ophthalmological New Patient Start Intermediate Level Care [phone] DASHA LUBIN CHEMODENERVATION OF MUSCLE(S); NECK [...] TO EXCEED A 48-HOUR DOSAGE REGIMEN 004 [facility] ENDOMETRIAL SAMPLING (BIOPSY) WITH OR WITHOUT ENDOCERVICAL SAMPLING (BIOPSY), WITHOUT CERVICAL DILATION, ANY METHOD (SEPARATE PROCEDURE) 014 [facility] SCREENING PAPANICOLAOU SMEAR; OBTAINING, PREPARING AND CONVEYANCE [...] 24H/SOON APT; 11-20 MIN MED DIS 012 [facility] SMOKING CESSATION CLASSES, NON-PHYSICIAN PROVIDER, PER SESSION 011 DoD PATIENT SCREENED FOR TOBACCO USE AND RECEIVED TOBACCO CESSATION INTERVENTION (COUNSELING, PHARMACOTHERAPY, OR BOTH), IF IDENTIFIED A TOBACCO USER (PV, CAD) 011 [facility] TELE ASSESS & MGT SRV PROV QUAL NONPHYS HLTH CARE PRO TO EST PAT,PARENT,GUARD NOT ORIG REL ASSESS & MGT SRV PROV W/IN PREV 7 DAYS NOR LEAD ASSESS & MGT SRV/PX W/IN NXT 24H/SOON APT; 11-20 MIN MED DIS 011 [facility] PRESSURIZED/NONPRESS INHAL TREAT FOR AC AIRWAY OBSTRUCT,THERAP PURPOSE &/FOR DIAG PURP SUCH SPUTUM INDUCTION W AN AEROSOL GEN,NEBULIZER,METER DOSE INHALER/INTERMIT POSIT PRESS BREATHING (IPPB) DEV 009 [facility] OPHTHALMOLOGICAL SERVICES: MEDICAL EXAMINATION AND EVALUATION WITH INITIATION OF DIAGNOSTIC AND TREATMENT PROGRAM; INTERMEDIATE, NEW PATIENT 008 [facility] SCREENING PAPANICOLAOU SMEAR; OBTAINING, PREPARING AND CONVEYANCE OF CERVICAL OR VAGINAL SMEAR TO LABORATORY 008 [facility] UNLISTED SPECIAL SERVICE, PROCEDURE OR REPORT 006 DoD OTHER BILATERAL DESTRUCTION OR OCCLUSION OF FALLOPIAN TUBES 994 Do[facility] INJECTION OF RH IMMUNE GLOBULIN 993 [facility] REPAIR OF OTHER CURRENT OBSTETRIC LACERATION 993 DoD OTHER ARTIFICIAL RUPTURE OF MEMBRANES 993 [facility] EPISIOTOMY 991 [facility] REMOVAL OF IMPLANT; SUPERFICIAL (EG, BURIED WIRE, PIN OR JOYCE) (SEPARATE PROCEDURE) 002 [facility] REMOVAL OF IMPLANT; DEEP (EG, BURIED WIRE, PIN, SCREW, METAL BAND, NAIL, JOYCE OR PLATE) 002 DoD DRESSING CHANGE (FOR OTHER THAN BELLAMY) UNDER ANESTHESIA (OTHER THAN LOCAL) 002 DoD DRESSING CHANGE (FOR OTHER THAN BELLAMY) UNDER ANESTHESIA (OTHER THAN LOCAL) 002 [facility] CORRECTION, HALLUX VALGUS WITH BUNIONECTOMY, WITH SESAMOIDECTOMY WHEN PERFORMED; WITH DISTAL METATARSAL OSTEOTOMY, ANY METHOD 002 [facility] INFUSION, NORMAL SALINE SOLUTION , 1000 CC 001 DoD Social History Combined list of available smoking, tobacco, and other social history from Department of 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 Social History Type Response Date Comment [facility] e Sex Representation Female (finding) 02/07/2023 Unknown Organization Sexual Orientation [facility] Gender identity [facility] This section is an empty social history section. [facility] Assessment and Plan Combined list of future [...] of Defense and Veterans Affairs (VA).VA Functional Warren Measurement (FIM) Scale: 1 = Total Assistance (Subject = 0% +), 2 = Maximal Assistance (Subject = 25% +), 3 = Moderate Assistance (Subject = 50% +), 4 = Minimal Assistance (Subject = 75% +), 5 = Supervision, 6 = Modified Warren (Device), 7 = Complete Warren (Timely, Safely). Assessment Date/Time Source Assessment Type Assessment Skill Assessment Score Assessment Details No data available for this section
[2025-05-22 10:44] VITALS: BP 120/64; PULSE 62; RESP 18; TEMP 36.2; O2SAT 100
--- NOTE | 2025-05-22 11:03 | ED_ITS ---
HPI - URI/Sore Throat General Chief Complaint: Upper Respiratory Infection Stated Complaint: sore throat, white patches Time Seen by Provider: 05/22/25 11:03 Source: patient Mode of arrival: ambulatory Limitations: no limitations History of Present Illness HPI Narrative: 59 yo F presents with sore throat, pain with swallowing, dry mouth for 2 to 3 days. States voice is hoarse, tongue feels fat. Recently took amoxicillin from dentist for infected tooth. Took 7 days coarse starting April 20 and then another 7 day coarse May 13. All systems reviewed and negative except as noted above. Related Data Home Medications ?Medication ?Instructions ?Recorded ?Confirmed ?Last Taken ?Type sertraline 50 mg tablet 50 mg DIRECTED 06/18/24 06/18/24 Unknown History Allergies Allergy/AdvReac Type Severity Reaction Status Date / Time nitrofurantoin (From AdvReac Intermediate Nausea and Verified 05/22/25 11:10 Macrobid) Vomiting PMFSH Past Medical History Medical History Rectal mass Surgical removal Surgical History Surgical History History of bunionectomy Family History Family History Other Hypertension Social History Social History Smoking status: Current every day smoker Alcohol intake: current Comments At time of signature, agree with nursing past medical, surgical, social and family history. There is no relevant family history pertinent to the presenting complaint. Exam Narrative: GENERAL: This is a well-nourished, well-developed patient, in no apparent distress. HEAD: normocephalic, atraumatic. EYES: PERRL. Sclera clear/white. Vision is grossly intact. EARS: External ears normal NOSE: External nose normal THROAT: Mucous membranes moist, ecthyma to posterior pharynx, erythema to tongue with yellow plaques NECK: Neck supple, non-tender without lymphadenopathy, masses or thyromegaly. CARDIOVASCULAR: Regular rate and rhythm without murmurs, gallops, or rubs. RESPIRATORY: Clear to auscultation. Breath sounds equal bilaterally. No wheezes, rales, or rhonchi. SKIN: warm, Dry, intact with no suspicious lesions or rash, good texture and turgor. NEURO: awake, alert, and oriented to person, place and time. There were no obvious focal neurologic abnormalities. EXTREMITIES: No joint tenderness, effusion, or edema noted. Course Course Level of Care: Express Care Visit Vital Signs Vital signs: Vital Signs Temperature 36.2 C L 05/22/25 10:44 Pulse Rate 62 05/22/25 10:44 Respiratory Rate 18 05/22/25 10:44 Blood Pressure 120/64 05/22/25 10:44 Pulse Oximetry 100 05/22/25 10:44 Oxygen Delivery Room Air 05/22/25 10:44 Temperature 36.2 C L 05/22/25 10:44 Pulse Rate 62 05/22/25 10:44 Respiratory Rate 18 05/22/25 10:44 Blood Pressure 120/64 05/22/25 10:44 Pulse Oximetry 100 05/22/25 10:44 Oxygen Delivery Room Air 05/22/25 10:44 reviewed MDM - URI/Sore Throat MDM Narrative Medical decision making narrative: exam findings and recent antibiotic use concerning for oral thrush. Will treat with nystatin. Will see PCP if not improving. Discharge Plan Discharge Clinical Impression: Oral thrush Patient Disposition: Home Condition: Stable Instructions: Oral Candidiasis (ED) Additional Instructions: Swish and swallow nystatin as prescribed. Practice good oral hygiene, brush teeth at least twice a day. See your doctor if not improving. Patient Language: Latvian Prescriptions: New nystatin 100,000 unit/mL suspension 6 ml PO QID 10 Days Qty: 240 0RF Rx Instructions: swish and swallow No Action sertraline 50 mg tablet 50 mg DIRECTED Follow-up/Referrals: Lenka,SHAUN Mclain [Primary Care Provider] - Time of Disposition: 11:10
== END 2025-05-22 11:14 | disposition home or self-care (01) ==
PROVIDERS: Emergency Provider Nurse Practitioner Family; PCP Registered Nurse
DX: B37.0 Candidal stomatitis (principal); F17.200 Nicotine dependence, unspecified, uncomplicated
CPT/HCPCS: 99213; G0463

== ENCOUNTER 2025-05-28 08:36 | Emergency (ER) | payer OTHER, SELFPAY ==
--- OUTSIDE RECORDS SUMMARY | 2025-05-28 08:40 | XMS_ITS | Patient Health Record ---
Author Organization [facility] [employer] Address [address] [facility] [address] [place] [address] Care Team Providers Care Slate Cutter Name Role Phone Felipe Benítez Unavailable [phone] Reason For Referral No Information Medications Medication SIG (Take, Route, Frequency, Duration) Notes Start Date End Date Status Sertraline HCl 100 MG Oral Active Ketorolac Tromethamine 10 MG Oral Active Chantix 1 mg Oral Active Chantix Continuing Month Maximus 1 MG Oral Active HYDROcodone-Acetaminophen 5-325 MG Oral Active Ergocalciferol 1.25 MG (21499 UT) Oral Active Chantix Starting Month Maximus 0.5 MG X 11 & 1 MG X 42 Oral Acti ve Plan Of Treatment No Information Insurance Providers Payer Name Payer Address Payer Phone Subscriber Number Group Number Insured Name Patient Relationship to Insured Coverage Start Date Coverage End Date [employer] [address] [place] [address] [id number] DAMON ARGUELLES Self - patient is the insured
--- OUTSIDE RECORDS SUMMARY | 2025-05-28 08:40 | XMS_ITS | Clinical Summary ---
Author Organization [facility] [address] [facility] Address [address] [place] [address] Care Team Providers Care Product Line Manager Name Role Phone YemibetiJeronimo durand Primary Care [...] (06/28/2023): Added automatically from request for surgery [id number] Cigarette nicotine dependence in remission 03/07 Immunizations [...] patient's age to complete this topic Insurance [employer] Care Teams Product Line Manager Relationship Specialty Start Date End Date Jeronimo Fuchs DO [address] [place] [address] [phone] PCP - General Family Medicine 06/13/23
[2025-05-28 08:45] VITALS: BP 128/70; PULSE 69; RESP 17; TEMP 36.8; O2SAT 100
--- NOTE | 2025-05-28 09:28 | ED.EAR ---
HPI - Ear Problem General Chief complaint: Ear Stated complaint: throat and ear pain for 2 weeks Time Seen by Provider: 05/28/25 09:09 Source: patient and RN notes reviewed Mode of arrival: ambulatory Limitations: no limitations History of Present Illness HPI Narrative: 59-year-old female presents to the ER complaining of sore throat, ear pain, congestion, voice hoarseness for last 2 weeks. Patient was at urgent care few days ago is still she has oral thrush she is prescribed nystatin. Patient says her symptoms have not improved. Patient was recently on amoxicillin last month for a dental infection. Patient denies any breathing problems, chest pains, nausea fevers, body aches chills, or any other symptoms. Related Data Home Medications ?Medication ?Instructions ?Recorded ?Confirmed ?Last Taken ?Type sertraline 50 mg tablet 50 mg DIRECTED 06/18/24 06/18/24 Unknown History Allergies Allergy/AdvReac Type Severity Reaction Status Date / Time nitrofurantoin (From AdvReac Intermediate Nausea and Verified 05/28/25 08:42 Macrobid) Vomiting Review of Systems Review of Systems: CONSTITUTIONAL: Denies fever, chills, or sweats. EYES: Denies visual changes, redness, or discharge. ENT: Denies rhinorrhea, sore throat, dysphagia, difficulty clearing secretions. Or otalgia. Positive for congestion, sore throat, voice hoarseness. CARDIOVASCULAR: Denies chest pain, palpitations, or edema. RESPIRATORY: Denies cough, wheezing, or dyspnea. GASTROINTESTINAL: Denies abdominal pain, nausea, vomiting, or diarrhea. GENITOURINARY: Denies dysuria or hematuria. SKIN: Denies rash or itching. MUSCULOSKELETAL: Denies back pain, joint pain, or myalgia. NEUROLOGIC: Denies headache, numbness, or weakness. PSYCHIATRIC: Denies anxiety or depression. All other systems reviewed are negative, except as documented in HPI. [facility] Past Medical History Medical History Rectal mass Surgical removal Surgical History Surgical History History of bunionectomy Family History Family History Other Hypertension Social History Social History Smoking status: Current every day smoker Alcohol intake: current Comments At the time of my signature, I reviewed and agree with the nursing past medical, surgical, social, and family history. There is no relevant family history pertinent to the patient complaint. Exam Narrative: GENERAL: This is a well-nourished, well-developed adult, in no apparent distress. They are non ill-appearing, nontoxic appearing. HEAD: normocephalic, atraumatic. EYES: Sclera clear/white. Conjunctiva normal. Vision is grossly intact. Extraocular movements intact EARS: External ears normal, auditory canals clear and without drainage, TMs normal without perforation. Hearing grossly intact. NOSE: External nose normal with no obvious nasal discharge, nasal turbinates erythematous, no rhinorrhea. THROAT: Mucous membranes moist, posterior pharynx erythemic, without swelling. Uvula midline. Postnasal drip present. NECK: Neck supple, non-tender without lymphadenopathy, masses or thyromegaly. CARDIOVASCULAR: Regular rate and rhythm without murmurs, gallops, or rubs. RESPIRATORY: Clear to auscultation. Breath sounds equal bilaterally. No wheezes, rales, or rhonchi. SKIN: warm, Dry, intact with no suspicious lesions or rash, good texture and turgor. NEURO: awake, alert, and oriented to person, place and time. There were no obvious focal neurologic abnormalities. EXTREMITIES: No joint tenderness, effusion, or edema noted. BACK: Nontender without deformity. No CVA tenderness. Course Course Emergency Course: Portions of this record may have been created with voice recognition software Vital Signs Vital signs: Vital Signs Temperature 98.2 F 05/28/25 08:45 Pulse Rate 69 05/28/25 08:45 Respiratory Rate 17 05/28/25 08:45 Blood Pressure 128/70 05/28/25 08:45 Pulse Oximetry 100 05/28/25 08:45 Temperature 98.2 F 05/28/25 08:45 Pulse Rate 69 05/28/25 08:45 Respiratory Rate 17 05/28/25 08:45 Blood Pressure 128/70 05/28/25 08:45 Pulse Oximetry 100 05/28/25 08:45 Reviewed Medical Decision Making MDM Narrative Medical decision making narrative: Since patient's symptoms have persisted for the last 2 weeks to go ahead and treat her for bacterial upper respiratory infection. Will treat her with Augmentin. Discussed physical exam findings. Advised supportive measures and signs/symptoms to go to the ER. Pt is appropriate for outpt treatment and f/u. Differential Diagnosis Differential Diagnosis: Sinusitis, pharyngitis, upper respiratory infection, viral illness Vital Signs Vital Signs: Vital Signs Temperature 98.2 F 05/28/25 08:45 Pulse Rate 69 05/28/25 08:45 Respiratory Rate 17 05/28/25 08:45 Blood Pressure 128/70 05/28/25 08:45 Pulse Oximetry 100 05/28/25 08:45 Temperature 98.2 F 05/28/25 08:45 Pulse Rate 69 05/28/25 08:45 Respiratory Rate 17 05/28/25 08:45 Blood Pressure 128/70 05/28/25 08:45 Pulse Oximetry 100 05/28/25 08:45 Critical Care Time Critical Care Time Critical Care Time: No Discharge Plan Discharge Clinical Impression: Upper respiratory infection Qualifiers: URI type: unspecified URI Qualified Code(s): J06.9 - Acute upper respiratory infection, unspecified Patient Disposition: Home Condition: Stable Instructions: Antibiotic Form, Upper Respiratory Infection (ED) Additional Instructions: Take the Augmentin as directed and complete the course even if you start to feel better. Continue to take Tylenol or Motrin for pain. Follow the instructions on the bottle. Use a humidifier or vaporizer at night. Drink plenty of water. 8-10 glasses per day. Follow up with Primary provider in 3-5 days Please go to the ER if he develops any difficulty breathing, unable to swallow, nausea, vomiting worsening symptoms, or any other concerns Patient Language: Icelandic Prescriptions: New amoxicillin-pot clavulanate 875-125 mg tablet 1 tablet PO Q12H 7 Days Qty: 14 0RF No Action nystatin 100,000 unit/mL suspension 6 ml PO QID 10 Days Qty: 240 0RF Rx Instructions: swish and swallow sertraline 50 mg tablet 50 mg DIRECTED Follow-up/Referrals: Lenka,SHAUN Mclain [Primary Care Provider] - Time of Disposition: 09:24
--- OUTSIDE RECORDS SUMMARY | 2025-05-28 09:31 | XMS_ITS | Clinical Summary ---
Author Organization [facility] [address] [facility] Address [address] [place] [address] Care Team Providers Care Antique Furniture Repairer Name Role Phone YemibetiJeronimo durand Primary Care [...] (06/28/2023): Added automatically from request for surgery [id number] Cigarette nicotine dependence in remission 03/07 Immunizations [...] patient's age to complete this topic Insurance Make My plate Make My plate Care Teams Antique Furniture Repairer Relationship Specialty Start Date End Date Jeronimo Fuchs DO [address] [place] [address] [phone] PCP - General Family Medicine 06/13/23
--- OUTSIDE RECORDS SUMMARY | 2025-05-28 09:31 | XMS_ITS | Continuity of Care Document ---
Author Name [facility] Organization [facility] Care Team Providers Care Radio Director Name Role Phone [facility] Unavailable Unavailable Problems [...] pain, localized in the knee Active Condition [facility] visit for: services physical long term Active Condition DoD BRONCHITIS Inactive Condition DoD [...] DUTIES 24 HRS, >H2O,REST F/U ADVISED! DoD Allergies, Adverse Reactions, Alerts Combined list of allergies from Department of 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 It does not include entries that were removed or entered in error. Substance Category Reaction Severity Reaction type Status Date Reported Comments Source OTHER Drug allergy (disorder) Unknown active 6 [employer] Zaid [place]EDILL[place] OTHER Propensity to adverse reactions to drug Unknown Active 6 [id number] Unknown Organization Immunizations Combined list of available immunizations from the Department of 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 (MED) complet ed influenza virus vaccine, live, attenuate d, for intranasa l use DoD tetanus, diphtheria, acellular pertu is 2007 [id number] sanofi pasteur complet ed tetanus, diphtheri a, acellular pertussis 11/05/07 Given Ambulat ory Pharmac y tetanus toxoid, reduced diphtheria toxoid, and acellular pertu is vaccine, adsorbed 1 2007 [id number] 115 Sanofi Pasteur ([facility]) complet ed tetanus toxoid, reduced diphtheri a toxoid, and acellular pertussis vaccine, adsorbed DoD influenza virus vaccine, live 2006 [id number] 111 [employer] comple t ed influenza virus vaccine, live 08/01/07 Given Ambulat ory Pharmac y influenza virus vaccine, live, attenuated, for intranasal use 0 2006 [id number] 111 Echovox, Inc. (MED) complet ed influenza virus vaccine, live, attenuate d, for intranasa l use DoD anthrax vaccine 2006 [id number] Emergent [employer]olutions complet ed anthrax vaccine 07/12/07 Given Ambulat ory Pharmac y anthrax vaccine 3 2006 [id number] [employer] Reard[employer] ([facility]) complet ed anthrax vaccine DoD anthrax vaccine 2006 [id number] [employer] complet ed anthrax vaccine 06/09/07 Given Ambulat ory Pharmac y anthrax vaccine 2 2006 [id number] 24 [employer] [place] ([facility]) complet ed anthrax vaccine DoD vaccinia (smallpox) vaccine 2006 [id number] Tutor complet ed vaccinia (smallpox ) vaccine 05/15/07 Given Ambulat ory Pharmac y typhoid Vi capsular polysaccharid e vac 2006 [id number] 101 sanofi pasteur complet ed typhoid Vi capsular polysacch aride vac 05/15/07 Given Ambulat ory Pharmac y vaccinia (smallpox) vaccine 1 2006 [id number] 75 [facility] ([facility]) complet ed vaccinia (smallpox ) vaccine DoD typhoid Vi capsular polysaccharid e vaccine 1 2006 [id number] 101 Sanofi Pasteur ([facility]) complet ed typhoid Vi capsular polysacch aride vaccine DoD anthrax vaccine 2006 [id number] [employer] complet ed anthrax vaccine 05/12/07 Given Ambulat ory Pharmac y anthrax vaccine 1 2006 [id number] Emergent BioDefense [facility] ([facility]IP) complet ed anthrax vaccine DoD influenza virus vaccine,split 2005 [id number] 15 sanofi pasteur complet ed influenza virus vaccine,s plit 09/19/06 Given Ambulat ory Pharmac y influenza virus vaccine, split virus (incl. purified surface antigen)-reti red CODE 1 2005 [id number] 15 Sanofi Pasteur ([facility]) complet ed influenza virus vaccine, split virus (incl. purified surface antigen)- retired CODE DoD measles, mumps and rubella virus vaccine 0 2005 03 () Not Given measles, mumps and rubella virus vaccine DoD tetanus-dipht h toxoids (Td) adult/adol 2004 [id number] 09 sanofi pasteur complet ed tetanus-d iphth toxoids (Td) adult/ado l 10/17/05 Given Ambulat ory Pharmac y tetanus and diphtheria toxoids, adsorbed, preservative free, for adult use (2 Lf of tetanus toxoid and 2 Lf of diphtheria toxoid) 1 2004 [id number] 09 Sanofi Pasteur ([facility]) complet ed tetanus and diphtheri a toxoids, adsorbed, preservat rose free, for adult use (2 Lf of tetanus toxoid and 2 Lf of diphtheri a toxoid) DoD influenza virus vaccine, live 2004 [id number] 111 Applied [employer] comple t ed influenza virus vaccine, live 07/24/05 Given Ambulat ory Pharmac y influenza virus vaccine, live, attenuated, for intranasal use 1 2004 [id number] 111 Echovox, Inc. (MED) complet ed influenza virus vaccine, live, attenuate d, for intranasa l use DoD hepatitis B vaccine, adult dosage 0 2003 43 () Not Given hepatitis B vaccine, adult dosage DoD varicella virus vaccine 0 2002 21 () Not Given varicella virus vaccine DoD influenza virus vaccine, whole virus 2002 [id number] 16 Novartis Pharmaceutica complet ed influenza virus vaccine, whole virus 07/23/03 Given Ambulat ory Pharmac y influenza virus vaccine, whole virus 0 2002 [id number] 16 [employer] (PWJ) complet ed influenza virus vaccine, whole virus DoD influenza virus vaccine, whole virus 2001 [id number] 16 [facility] ed influenza virus vaccine, whole virus 08/19/02 Given Ambulat ory Pharmac y influenza virus vaccine, whole virus 0 2001 [id number] 16 [facility] ([facility]) complet ed influenza virus vaccine, whole virus DoD influenza virus vaccine, whole virus 2000 [id number] 16 [facility] complet ed influenza virus vaccine, whole virus 08/19/01 Given Ambulat ory Pharmac y influenza virus vaccine, whole virus 0 2000 [id number] 16 [facility] ([facility]) complet ed influenza virus vaccine, whole virus DoD influenza virus vaccine, whole virus 2000 [id number] [facility] influenza virus vaccine, whole virus 01/20/01 Given Ambulat ory Pharmac y influenza virus vaccine, whole virus 0 2000 [id number] 16 [facility] ([facility]) complet ed influenza virus vaccine, whole virus DoD influenza virus vaccine, whole virus 1999 [id number] 16 [facility] complet ed influenza virus vaccine, whole virus 09/18/00 Given Ambulat ory Pharmac y influenza virus vaccine, whole virus 0 1999 [id number] 16 [facility] ([facility]) complet ed influenza virus vaccine, whole virus [...] oral DoD influenza virus vaccine, whole virus 19971585 [id number] 16 [facility] complet ed influenza virus vaccine, whole virus 08/16/98 Given Ambulat ory Pharmac y influenza virus vaccine, whole virus 0 [id number] 16 [facility] ([facility]) complet ed influenza virus vaccine, whole virus DoD tuberculin purified protein derivative 1997 [id number] 96 [facility] complet ed Patient Tolerance : Negative Ambulat ory Pharmac y tuberculin skin test; purified protein derivative solution, intradermal 3 1997 Unknown, Provider [id number] [employer] (CON) complet ed tuberculi n skin test; purified protein derivativ e solution, intraderm al DoD influenza virus vaccine, whole virus 19964039 [id number] 16 [employer] complet ed influenza virus vaccine, whole virus 08/23/97 Given Ambulat ory Pharmac y influenza virus vaccine, whole virus 0 [id number] 16 [employer] (Inactive) ([place]) complet ed influenza virus vaccine, whole virus DoD tuberculin purified protein derivative 1996 [id number] 96 [facility] complet ed Patient Tolerance : Negative Ambulat ory Pharmac y tuberculin skin test; purified protein derivative solution, intradermal 2 1996 Unknown, Provider [id number] 96 [facility] (CON) complet ed tuberculi n skin test; [...] ed trivalent polioviru s vaccine, live, oral [facility] poliovirus vaccine, live, oral 1985 02 complet [...] ADM Date DC Date Status Disposition Source Heath DALIA Pbalo([facility]) OUTPATIENT [id number] Anjel REYESYUE ROSIE K 07/20 Sick at Home/Quarter s DALIA Tellez([facility]) DALIA Tellez(Academ y Neurology ) OUTPATIENT [id number] BOTOX appt CHERYL CAO 09/26 Released w/o Limitations Kumar VILLALOBOS DALIA Reyna(Acad teresa Neurolo gy) Kumar VILLALOBOS DALIA Reyna([facility]) OUTPATIENT [id number] moles on back KATTY MANNING 10/01 Released w/o Limitations Heath WILFREDO DALIA Reyna([facility]) DALIA Tellez(Academ y Neurology ) OUTPATIENT [id number] F/u Appt per Col CHERYL Mcdaniel 10/11 Released w/o Limitations DALIA Tellez(Acad teresa Neurolo gy) [address] [place] [address] Zaid CEDILLO [facility]Fam galileo Practice Non-GME FHI2) OUTPATIENT [id number] POSS BROKEN TOE LINNETTE LANDAVERDE 03/08 Released w/o Limitations [address] [place] [address] Zaid CEDILLO [facility])(F amily Practic e Non-GME FHI2) [address] [place] [address] Zaid CEDILLO [facility]Fam galileo Practice Non-GME FHI2) OUTPATIENT [id number] left inguina l bulge x 2 days, tender LINNETTE LANDAVERDE 07/15 Released w/o Limitations [address] [place] [address] Zaid CEDILLO [facility])(F amily Practic e Non-GME FHI2) [address] [place] [address] Zaid CEDILLO [facility])(Gen eral Surgery) OUTPATIENT [id number] hernia KELTON NIX 07/18 Released w/o Limitations [address] [place] [address] Zaid CEDILLO [place] [place] [address] [place] [address] Zaid CEDILLO [facility]Fam galileo Practice Non-GME FHI2) TELE CONSULT [id number] med DAVID Morel 07/26 [employer] STONEB [place]F amily Practic e Non-GME FHI2) [employer] [facility] B [place]Gen eral [place]) OUTPATIENT [id number] hernia KELTON NIX 08/22 Released w/o Limitations [employer] STONE[facility] [place]G eneral Surgery ) [facility] B [place] OUTPATIENT [id number] AYLA Simon 09/04 Released w/o Limitations [employer] STONE[employer] [place]) [facility] Zaid B [facility])(Fam galileo Practice Non-GME FHI1) OUTPATIENT [id number] abdomin al pain AMERICA DAVIS 01/08 Released w/o Limitations [employer] B [place]F amily Practic e Non-GME FHI1) [facility] Zaid [facility])([facility]) OUTPATIENT [id number] JEANCARLOS CANDELARIO 05/19 Released w/o Limitations [employer] [address] [facility] [place]) [facility] Zaid B [facility])([facility]) OUTPATIENT [id number] [facility] JEANCARLOS VILLEGAS 05/19 Released w/o Limitations [facility] STONEB [place]) [facility] OUTPATIENT [id number] 07/12 Released w/o Limitations [facility] OUTPATIENT [id number] 08/28 Released w/o Limitations Theater [facility] [employer] CHASEB [place]Neo tt Internal Medicine Tm) OUTPATIENT [id number] well woman/P ap G access JASMEET MAGANA 01/14 Released w/o Limitations [employer] [facility]aid B [facility])(S cott Interna l Medicin e Tm) [employer] CHASE[facility])(Sco tt Internal Medicine Tm) TELE CONSULT [id number] LAB RESULTS AFTER JASMEET MAGANA 01/[address] [place] [address] Zaid B [facility])(S cott Interna l Medicin e Tm) [address] [place] [address] Zaid [facility])(Fam galileo Practice Non-GME FHI1) OUTPATIENT [id number] stomach problem s LIBERTY MCCALL 01/27 Sick at Home/Quarter s [address] [place] [address])(F amily Practic e Non-GME FHI1) [address] [place] [address])([facility] galileo Practice Non-GME FHI1) TELE CONSULT [id number] YOBANISILVER BISWAS Santana 02/[address] [place], [place] [address]B [facility])(F amily Practic e Non-GME FHI1) [address] [place] [address])(Fam galileo Practice Non-GME FHI2) OUTPATIENT [id number] dx w/herni ated c-spine disks 2 yrs ago, now c/o n/t ortega upper ext JAVED MAGALLANES 02/08 Released w/o Limitations [address] [place] [address])(F amily Practic e Non-GME FHI2) [address] [place], [place] [address]B [facility])([facility] galileo Practice Non-GME FHI1) OUTPATIENT [id number] [facility] - Web Based Assessm ent (9) MATT TANNER 05/25 Released w/o Limitations [address] [place] [address])(F amily Practic e Non-GME FHI1) [address] [place] [address])(Opt ometry) OUTPATIENT [id number] conjunc tival hemorrh age left eye DASHA LUBIN 05/26 Released w/o Limitations [address] [place], [place] [address]B [facility])(O ptometr y) [address] [place] [address] Zaid B [facility])(Fam galileo Practice Non-GME FHI2) OUTPATIENT [id number] abnorma l bleedin g in abd. and flank pain [phone] BRIE MCCALL 11/22 Released w/o Limitations [address] [place] [address] Zaid B [facility])(F amily Practic e Non-GME FHI2) [address] [place], [place] [address]B [facility])(Fam galileo Practice Non-GME FHI1) OUTPATIENT [id number] Cold Symptom s JEANCARLOS VILLEGAS 12/03 Released w/o Limitations [facility] Zaid CHASEJaswinder ([facility]F amily Practic e Non-GME FHI1) [address] [place] [address] [facility]) OUTPATIENT [id number] [facility] AMERICA GILLETTE 12/31 Released w/o Limitations [facility] Zaid CEDILLO [place]) [address] [place] [address] Zaid CHASEJaswinder [facility])(Fam galileo Med Tm B Non-AD BCC) OUTPATIENT [id number] Retirem ent physica l [phone] BRIE MCCALL 02/10 Released w/o Limitations [facility] Zaid CHASEJaswinder [place]F amily Med Tm B Non-AD BCC) [address] [place] [address] Zaid CHASEJaswinder [facility])(Fam galileo Med Tm B Non-AD BCC) TELE CONSULT [id number] Rad Results BRIE MCCALL 02/[address] [place] [address] Zaid [facility]F amily Med Tm B Non-AD BCC) [address] [place] [address] [facility]aid [facility]Den ariela [facility]) DENTAL [id number] op dent #29, #30 SHERRY FOWLER M 03/02 Released w/o Limitations [facility] Zaid CHASEJaswinder [place]D ent[facility]) [address] [place] [address] Zaid [facility]Fam galileo Med Tm B Non-AD BCC) TELE CONSULT [id number] PCM - Dr. Mccall - prx WALTER Niño 12/[address] [place] [address] Zaid [facility]F amily Med Tm B Non-AD BCC) [address] [place] [address] Zaid CHASEJaswinder [facility])(Fam galileo Med Tm B Non-AD BCC) TELE CONSULT [id number] Lab Results WALTER MATHIS 01/[address] [place] [address] Zaid CEDILLO [facility])(F amily Med Tm B Non-AD BCC) [address] [place] [address] Zaid CHASEB [facility])(Fam galileo Med Tm B Non-AD BCC) OUTPATIENT [id number] fu medicat ions and refills [phone] BRIE MCCALL 01/19 Released w/o Limitations [address] [place] [address] Zaid CEDILLO [facility])(F amily Med Tm B Non-AD BCC) [address] [place] [address] [employer] ([facility]Fam galileo Med Tm B Non-AD BCC) TELE CONSULT [id number] pt request refill of Ambien( msg left on DM line) Radha [phone] FELICITA PARKER 08/[address] [place] [address] [employer] ([facility]F amily Med Tm B Non-AD BCC) [address] [place] [address] [employer] ([facility]Fam galileo Med Tm B Non-AD BCC) OUTPATIENT [id number] blood in stools [phone] BRIE MCCALL 11/13 Released w/o Limitations [address] [place] [address] [employer] ([facility]F amily Med Tm B Non-AD BCC) [address] [place] [address] [employer] ([facility]Fam galileo Med Tm B Non-AD BCC) TELE CONSULT [id number] Med refill/ Radha/WALTER Cantu 01/[address] [place] [address] [employer] [place]F amily Med Tm B Non-AD BCC) [address] [place] [address] [employer] ([facility]Fam galileo Med Tm B Non-AD BCC) TELE CONSULT [id number] med refill TIM Conner 08/[address] [place] [address] Zaid STONEB ([facility]F amily Med Tm B Non-AD BCC) [address] [place] [address] [employer] ([facility]Fam galileo Med Tm B Non-AD BCC) OUTPATIENT [id number] f/u depress ion BRIE MCCALL 08/13 Released w/o Limitations [address] [place] [address] [employer] ([facility]F amily Med Tm B Non-AD BCC) [address] [place] [address] [employer] ([facility]C Pharm D [facility]) OUTPATIENT [id number] Smoking Cessati on DEE CONNORS 08/27 Released w/o Limitations [address] [place] [address] [employer] ([facility] Pharm [facility]) [address] [place] [address] [employer] [facility]Fam galileo Med Tm B Non-AD BCC) TELE CONSULT [id number] Notes Entered by: Franklin WILLIAMSON 29 Jul 2012 0839 ------- ------- ------- ------- -- Med refill/ [facility]/c ad/cls [phone] TIM FRANCISCO 07/[address] [place] [address] Zaid [facility])(F amily Med Tm B Non-AD BCC) [address] [place] [address] Zaid [facility])(Fam galileo Med Tm B Non-AD BCC) OUTPATIENT [id number] follow up zoloft medicat ion [phone] ABIGAIL MORALES 08/12 Released w/o Limitations [address] [place] [address] [facility]F amily Med Tm B Non-AD BCC) [address] [place] [address] [facility] ([facility]Fam galileo Med Tm B Non-AD BCC) TELE CONSULT [id number] Notes Entered by: Nik MORALES 10 Sep 2012 0856 ------- ------- ------- ------- -- lab ABIGAIL MORALES 09/[address] [place] [address] Zaid CHASEJaswinder [facility])(F amily Med Tm B Non-AD BCC) [address] [place] [address] [facility]aid [facility]War rior Op Med Cln Tm A Ad) TELE CONSULT [id number] Notes Entered by: KASHMIR STARK 30 Sep 2012 1708 ------- ------- ------- ------- -- Network Results - GASTROE NTEROLO GY 09/26/12 ABIGAIL MORALES 09/[address] [place] [address] Zaid STONEJaswinder [facility])(W arrior Op Med Cln Tm A Ad) [address] [place] [address] [facility]aid [facility]Fam galileo Med Tm B Non-AD BCC) TELE CONSULT [id number] Notes Entered by: Nik MORALES 01 Oct 2012 1250 ------- ------- ------- ------- -- TIM Funes 10/[address] [place] [address] Zaid CHASEJaswinder ([facility]F amily Med Tm B Non-AD BCC) [address] [place] [address] Zaid Jaswinder ([facility]Fam galileo Med Tm B Non-AD BCC) OUTPATIENT [id number] Sleep concern s [phone] MARGARITA العراقي 12/24 Released w/o Limitations [address] [place] [address] Zaid STONEB [facility])(F amily Med Tm B Non-AD BCC) [address] [place] [address] Zaid STONEB [facility])(Fam galileo Med Tm B Non-AD BCC) TELE CONSULT [id number] Notes Entered by: NATALIA ORTIZ 02 Feb 2013 0732 ------- ------- ------- ------- -- Back pain, leg pain, chills, sweatin mariangel العراقي - TIM FRANCISCO 02/[address] [place] [address] Zaid B [facility])( amily Med Tm B Non-AD BCC) [address] [place] [address] Zaid B ([facility]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) OUTPATIENT [id number] wwe [id number] KAYLEY MUNIZ 02/02 Released w/o Limitations [address] [place] [address] Zaid [facility])(G dariela gy) [address] [place] [address] Zaid STONEB [facility])(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) TELE CONSULT [id number] Notes Entered by: KAYLEY MUNIZ 12 Feb 2014 0747 ------- ------- ------- ------- -- results JEFF VAELNTE 02/[address] [place] [address] Zaid B [facility])(Mariangel lyle gy) [address] [place] [address] Zaid STONEB [facility])(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) OUTPATIENT [id number] [facility] - [phone] KAYLEY MUNIZ 02/15 Released w/o Limitations [address] [place] [address] [employer] [facility])(G dariela gy) [address] [place] [address] Zaid B [facility])(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) TELE CONSULT [id number] Notes Entered by: KAYLEY MUNIZ 24 Feb 2014 1228 ------- ------- ------- ------- -- Embx results JEFF VALENTE 02/[address] [place] [address] Zaid CEDILLO [facility])(Mariangel rodriguezcolo gy) [address] [place] [address] Zaid CEDILLO [place]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) TELE CONSULT [id number] Notes Entered by: Lonny POMPA 06 Apr 2014 1634 ------- ------- ------- ------- -- Pelvic US f/u AKIKOKANDY Usman 04/[address] [place] [address] Zaid CEDILLO [place]G ymariana gy) [facility] Outpatient Encounter [id number] 04/22 [facility] Procedures Combined list of: 1) Procedures from Department of [facility] Affairs facilities going back up to thelast 18 months, not all [place] non-surgical procedures are included; 2) All procedures from the Department of Defense facilities. Procedure Procedure Type Code Date Perfomer Comments Sourc e REMOVAL OF IMPLANT; SUPERFICIAL (EG, BURIED WIRE, [...] SALINE SOLUTION , 1000 CC 001 DoD CHEMODENERVATION OF MUSCLE(S); NECK MUSCLE(S) (EG, [...] OR MORE AREAS; HOT OR COLD PACKS DoD APPLICATION OF A MODALITY TO 1 OR MORE AREAS; HOT OR COLD PACKS DoD APPLICATION OF A MODALITY TO 1 OR MORE AREAS; HOT OR COLD PACKS DoD APPLICATION OF A MODALITY TO 1 OR MORE AREAS; HOT OR COLD PACKS DoD APPLICATION OF A MODALITY TO 1 OR MORE AREAS; HOT OR COLD PACKS DoD APPLICATION OF A MODALITY TO 1 OR MORE AREAS; HOT OR COLD PACKS 004 DoD RANGE OF MOTION MEASUREMENTS AND REPORT (SEPARATE PROCEDURE); HAND, WITH OR WITHOUT COMPARISON WITH NORMAL SIDE DoD ONDANSETRON HYDROCHLORIDE 8 MG, ORAL, FDA [...] 24H/SOON APT; 11-20 MIN MED DIS 012 [facility] SMOKING CESSATION CLASSES, NON-PHYSICIAN PROVIDER, PER SESSION 011 [facility] PATIENT SCREENED FOR TOBACCO USE AND RECEIVED TOBACCO CESSATION INTERVENTION (COUNSELING, PHARMACOTHERAPY, OR BOTH), IF IDENTIFIED A TOBACCO USER (PV, CAD) 011 [facility] TELE ASSESS & MGT SRV PROV QUAL NONPHYS HLTH CARE PRO TO EST PAT,PARENT,GUARD NOT ORIG REL ASSESS & MGT SRV PROV W/IN PREV 7 DAYS NOR LEAD ASSESS & MGT SRV/PX W/IN NXT 24H/SOON APT; 11-20 MIN MED DIS 011 [facility] PRESSURIZED/NONPRESS INHAL TREAT FOR AC AIRWAY OBSTRUCT,THERAP PURPOSE &/FOR DIAG PURP SUCH SPUTUM INDUCTION W AN AEROSOL GEN,NEBULIZER,METER DOSE INHALER/INTERMIT POSIT PRESS BREATHING (IPPB) DEV 009 [facility] OPHTHALMOLOGICAL SERVICES: MEDICAL EXAMINATION AND EVALUATION WITH INITIATION OF DIAGNOSTIC AND TREATMENT PROGRAM; INTERMEDIATE, NEW PATIENT 008 [facility] SCREENING PAPANICOLAOU SMEAR; OBTAINING, PREPARING AND CONVEYANCE OF CERVICAL OR VAGINAL SMEAR TO LABORATORY 008 [facility] UNLISTED SPECIAL SERVICE, PROCEDURE OR REPORT 006 [facility] OTHER BILATERAL DESTRUCTION OR OCCLUSION OF FALLOPIAN TUBES 994 [facility] INJECTION OF RH IMMUNE GLOBULIN 993 [facility] REPAIR OF OTHER CURRENT OBSTETRIC LACERATION 993 [facility] OTHER ARTIFICIAL RUPTURE OF MEMBRANES 993 [facility] EPISIOTOMY 991 [facility] Endometrial Biopsy By Suction Endometrial Biopsy By Suction [id number] KAYLEY MUNIZ [facility] Test Test [id number] KAYLEY MUNIZ [facility] Screening papanicolaou smear; obtaining, preparing and conveyance of cervical or vaginal smear to laboratory 014 KAYLEY MUNIZ [facility] Non-Physician Phone Call To Pt/Provider Intermed (11-20 min) Non-Physician Phone Call To Pt/Provider Intermed (11-20 min) [id number] TIM FRANCISCO Non-Physician Phone Call To Pt/Provider Intermed (11-20 min) Non-Physician Phone Call To Pt/Provider Intermed (11-20 min) [phone] TIM FRANCISCO [facility] Non-Physician Phone Call To Pt/Provider Intermed (11-20 min) Non-Physician Phone Call To Pt/Provider Intermed (11-20 min) [id number] [id number] YOVANI FRANCISCOBERLY Cookie [facility] Smoking ce ation cla es, non-physician provider, per se ion 011 DEE CONNORS [facility] Medication Management By Pharmacist Each Additional 15 Min Medication Management By Pharmacist Each Additional 15 Min [id number] DEE CONNORS Med Management By Pharmacist Initial 15 Min New Patient Med Management By Pharmacist Initial 15 Min New Patient [id number] [id number] DEE CONNORS [facility] A e ment & Intervention Tobacco Use Screening With Ce ation Counseling 011 BRIE MCCALL [facility] Non-Physician Phone Call To Pt/Provider Intermed (11-20 min) Non-Physician Phone Call To Pt/Provider Intermed (11-20 min) [id number] FRANCISCOTIM Respiratory Equip IPPB Related Nebulizer W/ Compre Respiratory Equip IPPB Related Nebulizer W/ Compress [id number] JEANCARLOS VILLEGAS [facility] Nebulizer, with compre or 009 JEANCARLOS VILLEGAS Ophthalmological New Patient Start Intermediate Level Care Ophthalmological New Patient Start Intermediate Level Care [id number] DASHA LUBIN [facility] No data available for this section Ambulato ry Pharmacy Social History Combined list of available smoking, tobacco, and other social history from 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 Social History Type Response Date Comment [facility] e Sex Representation Female (finding) 02/07/2023 Unknown Organization This section is an empty social history section. [facility] Sexual Orientation Ambula tory Pharmacy Gender identity Ambulator y Pharmacy Assessment and Plan Combined list of future care activities from [facility] Defense and [facility] facilities (e.g., assessment and plan notes, appointments, orders, and referrals). Additional future care activities may be listed in the Plan of Care section. Result Assessment and Plan Date Source Assessment and Plan No data available for this section 05/28/2025 Ambulatory Pharmacy Functional Status Combined list of recent functional and cognitive assessments recorded at [facility] Functional [place] Measurement (FIM) Scale: 1 = Total Assistance (Subject = 0% +), 2 = Maximal Assistance (Subject = 25% +), 3 = Moderate Assistance (Subject = 50% +), 4 = Minimal Assistance (Subject = 75% +), 5 = Supervision, 6 = Modified [place] (Device), 7 = Complete [place] (Timely, Safely). Assessment Date/Time Source Assessment Type Assessment Skill Assessment Score Assessment Details No data available for this section
== END 2025-05-28 09:46 | disposition home or self-care (01) ==
LOC: ANHED 09:28
PROVIDERS: PCP Registered Nurse
DX: J06.9 Acute upper respiratory infection, unspecified (principal); F17.200 Nicotine dependence, unspecified, uncomplicated
CPT/HCPCS: 99283